=== PATIENT | male | born 1945 | race Caucasian/White ===

== ENCOUNTER 2024-04-19 09:52 | Outpatient (REF) | payer MEDICARE, SELFPAY ==
--- NOTE | ~2024-04-19 | XR_ITS ---
EXAMINATION: X-RAY LUMBAR SPINE CLINICAL INFORMATION: Chronic low back pain. COMPARISON: None available. TECHNIQUE: 5 views. Including flexion-extension views. FINDINGS: Five [id number] lumbar type vertebral bodies. There is 5 mm retrolisthesis of L1 on L2, which appears similar on the flexion-extension views. Vertebral body heights are maintained. No evidence of acute fracture. Multilevel disc degenerative changes. More prominent changes of moderate L3-L4, severe L4-L5 disc degeneration with disc height loss. Multilevel facet degeneration. Degenerative changes in the visualized lower thoracic spine. Nonobstructive bowel gas pattern. Chronic calcification/phleboliths in the pelvis. Atherosclerotic vascular calcification. XR/XR lumbar spine 4V min IMPRESSION: 1. Moderate-severe lumbar spondylosis. 2. No radiographic evidence of acute fracture. 3. Mild retrolisthesis of L1 on L2. Electronically signed by: Azael Gleason MD 04/19/2024 01:53 PM [facility] [place]
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
--- OUTSIDE RECORDS SUMMARY | 2024-04-25 17:24 | XMS_ITS | Encounter Summary ---
Author Name [facility] [facility] [place] [facility] [place] Address [address] [place] [address] Care Team Providers Care Mobility Scooter Repairer Name Role Phone FRANCI ROSSI Primary Care [...] Patient's Relationship to Policy Schmitt ELSI BCBS [facility] MEDICARE SUPPLEMEN ROBERT PSUED O MEDEX BRONZ E Feb 14, 2014 [id number] [phone] MICHAEL MERIDA PATIENT [place] MED[place]ARE SUPPLEMEN ROBERT MEDEX BRONZ E Mar 17, 2014 [id number] MICHAEL MERIDA RADHA PATIENT MEDICARE (WNR) MEDICARE (M) PART B Feb 14, 2014 PART B [id number] MICHAEL MERIDA PATIENT MEDICARE (WNR) MEDICARE (M) PART B Feb 14, 2014 PART B [id number] FUADMICHAEL RADHA PATIENT MEDICARE (WNR) MEDICARE (M) PART B Feb 14, 2014 PART B [id number] [phone] MICHAEL MERIDA PATIENT MEDICARE (WNR) MEDICARE (M) PART A Dec 16, 2011 PART A [id number] [phone] MICHAEL MERIDA PATIENT MEDICARE (WNR) MEDICARE (M) PART A Dec 16, 2011 PART A [id number] MICHAEL MERIDA PATIENT MEDICARE (WNR) MEDICARE (M) PART A Dec 16, 2011 PART A [id number] MICHAEL MERIDA PATIENT Selected Encounter This section includes the information on record at [place] for the Encounter. Date/Time Encounter Type Encounter Description Reason Pro vider Source Feb 07, 2024 10:16 AM Outpatient Encounter ADMIN PAT ACTIVTIES (MASNONCT) IHE Encounter Template Text not used by [place] Plan of Treatment: Future Appointments (+ 6 months) and Future Tests (+/- 45 days) The Plan of Treatment section includes future care activities for the patient from all [place] treatmentfacilities. This section includes future appointments and future orders which are active, pending or scheduled. Future Appointments This section includes appointments that were scheduled to occur 6 months from the date of the Encounter, up to a maximum of 20 appointments. The data comes from all [place] treatment facilities. Appointment Date/Time Appointment Type Appointme nt Facility Name Mar 16, 2024 09:30 AM AMBULATORY - [facility]IC[facility] [place] Active, Pending, and Scheduled Orders This section includes a listing of several types of active, pending, and scheduled orders, including clinic medications orders, diagnostic test orders, procedure orders and consult orders; where the start date of the order is 45 days before the date of the Encounter or 45 days after the date of theEncounter. The data comes from all [place] treatment facilities. Test Date/Time Test Type Test Details Facility Name Mar 08, 2024 12:00 AM Laboratory - Chemi stry Order BASIC METABOLIC PANEL (fasting) BLOOD (SST-SERUM) [facility] Mar 08, 2024 12:00 AM Laboratory - Chemi stry Order LIPID PANEL FASTING BLOOD (SST-SERUM) [facility] Mar 08, 2024 12:00 AM Laboratory - Chemi stry Order CBC AND DIFF (AUTO) BLOOD (LAV-BLOOD) [facility] Mar 08, 2024 12:00 AM Laboratory - Chemi stry Order LIVER FUNCTION BLOOD (SST-SERUM) [facility] Mar 08, 2024 12:00 AM Laboratory - Chemi stry Order HEMOGLOBIN A1C PANEL BLOOD (LAV-BLOOD) [facility] Mar 08, 2024 12:00 AM Laboratory - Chemi stry Order TSH BLOOD (SST-SERUM) [facility] Mar 08, 2024 12:00 AM Laboratory - Chemi stry Order STRONGLYLOIDES Ab IgG (q) BLOOD (SST-SERUM) [facility] Mar 08, 2024 12:00 AM Laboratory - Chemi stry Order VITAMIN B12 BLOOD (SST-SERUM) [facility] Mar 08, 2024 12:00 AM Laboratory - Chemi stry Order MICROALBUMIN CREATININE RATIO PANEL URINE (RANDOM) [facility] Mar 08, 2024 12:00 AM Laboratory - Chemi stry Order VITAMIN D (25-OH) BLOOD (SST-SERUM) [facility] Social History: Smoking Status (Most current) and Tobacco Use (All prior to encounter date) This section includes the most current, and the historical, smoking and tobacco- related health factors from the [place] facility where the Encounter took place. Current Smoking Status This section includes the most current smoking, or tobacco-related health factor, from the [place] facility where the Encounter took place. Date/Time Current Smoking Status Comment Facil ity Mar 16, 2023 09:21 AM VA-TOBACCO [place] USED [place] [facility] [place] [facility] Tobacco Use History This section includes a history of the smoking, or tobacco-related health factors, that were collected on or before the date of the Encounter. The data comes from the [place] facility where the Encounter took place. Date/Time Smoking Status/Tobacco Use Comment F acility Mar 05, 2022 09:57 AM VA-TOBACCO NEVER USED [facility] [place] [facility] Oct 18, 2019 09:55 AM VA-TOBACCO NEVER USED [facility] [place] [facility] Encounter Notes: All associated encounter notes This section contains the clinical notes associated to the Encounter. Date/Time Encounter Note(s) Provider Source Feb 07, 2024 10:16 AM PHARMACY NOTE: LOCAL TITLE: V1 PHARMACY CUSTOMER CARE MEDICATION RENEWAL STANDARD TITLE: PHARMACY NOTE DATE OF NOTE: FEB 07, 2024@10:16 ENTRY DATE: FEB 07, 2024@10:16:50 AUTHOR: SHMUEL PATEL EXP COSIGNER: URGENCY: STATUS: COMPLETED Date: Jan Division: [facility] referred by Pharmacy Call Center for medication renewal: Non-controlled/maintena nce medication Medications requested: [id number] METOPROLOL SUCCINATE 50MG SA TAB Defer to primary care provider To be mailed . Please review and renew if appropriate. *This note was generated by [facility] [facility] Customer [facility]. If you have any questions or need assistance, do not contact this author. Please refer all questions to your local, on-site pharmacy departments. /kashif/ SHMUEL PATEL CPhT [place], [place]/Pharmacy Customer Care Signed: 02/07/2024 10:17 Receipt Acknowledged By: 02/07/2024 11:26 /es/ OMKAR MIR NP NURSE PRACTITIONER for FRANCI ROSSI 02/10/2024 08:49 /es/ SARAHI CHAPMAN,RN REGISTERED NURSE SHMUEL PATEL [place] [facility]
--- OUTSIDE RECORDS SUMMARY | 2024-04-25 17:24 | XMS_ITS ---
Author Name [facility] [place] [facility] [place] [facility] [place] Address [address] [place] [address] Care Team Providers Care Reception Centre Manager Name Role Phone FRANCI ROSSI Primary Care [...] Patient's Relationship to Policy Schmitt ELSI BCBS [facility] MEDICARE SUPPLEMEN ROBERT PSUED O MEDEX BRON E Feb 14, 2014 [id number] [phone] MICHAEL MERIDA PATIENT BCBS [place] MEDICARE SUPPLEMEN ROBERT MEDEX BRONZ E Mar 17, 2014 [id number] FUADMICHAEL RADHA PATIENT MEDICARE (WNR) MEDICARE (M) PART B Feb 14, 2014 PART B [id number] MICHAEL MERIDA PATIENT MEDICARE (WNR) MEDICARE (M) PART B Feb 14, 2014 PART B [id number] [phone] FUADMICHAEL RADHA PATIENT MEDICARE (WNR) MEDICARE (M) PART B Feb 14, 2014 PART B [id number] MICHAEL MERIDA PATIENT MEDICARE (WNR) MEDICARE (M) PART A Dec 16, 2011 PART A [id number] MICHAEL MERIDA PATIENT MEDICARE (WNR) MEDICARE (M) PART A Dec 16, 2011 PART A [id number] MICHAEL MERIDA PATIENT MEDICARE (WNR) MEDICARE (M) PART A Dec 16, 2011 PART A [id number] MICHAEL MERIDA PATIENT Selected Encounter This section includes the information on record [place] for the Encounter. Date/Time Encounter Type Encounter Description Reason Pro vider Source Jun 01, 2023 12:00 AM Outpatient Encounter EVENT (HISTORICAL) [facility] Encounter Template Text not used by [place] Social History: Smoking Status (Most current) and Tobacco Use (All prior to encounter date) This section includes the most current, and the historical, smoking and tobacco- related health factors from the [place] facility where the Encounter took place. Current Smoking Status This section includes the most current smoking, or tobacco-related health factor, from the [place] facility where the Encounter took place. Date/Time Current Smoking Status Comment Priscilla forbes Mar 16, 2023 09:21 AM [place]TOBACCO [place] [facility] [place] [facility] Tobacco Use History This section includes a history of the smoking, or tobacco-related health factors, that were collected on or before the date of the Encounter. The data comes from the [place] facility where the Encounter took place. Date/Time Smoking Status/Tobacco Use Comment Jhonny rizo Mar 05, 2022 09:57 AM [place]TOBACCO [place] [facility] [place] [facility] Oct 18, 2019 09:55 AM VA-TOBACCO [place] USED [place] [facility] [place] [facility] Encounter Notes: All associated encounter notes This section contains the clinical notes associated to the Encounter. Date/Time Encounter Note(s) Provider Source Jun 01, 2023 12:00 AM NONVA NOTE: LOCAL TITLE: NON-VA OUTPATIENT NOTES STANDARD TITLE: NONVA NOTE DATE OF NOTE: JUN 01, 2023 ENTRY DATE: APR 10, 2024@14:21:03 AUTHOR: SHILPI DYE EXP COSIGNER: URGENCY: STATUS: COMPLETED VistA Imaging - Scanned Document SCANNED DOCUMENT SIGNATURE NOT REQUIRED Electronically Filed: 04/10/2024 by: SHILPI DYE FACTORY ENGINEER SHILPI DYE [facility]
--- OUTSIDE RECORDS SUMMARY | 2024-04-25 17:24 | XMS_ITS | Continuity of Care Document ---
Author Name [facility] Organization [facility] Care Team Providers Care Textile Technical Officer Name Role Phone [facility] Unavailable Unavailable Problems Combined list of problems from Department of Defense and Veterans Affairs facilities. It does not include entries that were removed or entered in error. Problem Status Onset Date Problem Type Date of Resolution Comments Source Screening for Malignant Neoplasms of colon Active 05/17/19 10 Condition Dec 06, 2009 Entered By: SONIA PEÑA Comment: Colonoscopy: Normal [facility] 1987: Fractured Nose & Mandible Repair Active Condition Dec 06, 2009 Entered By: SONIA PEÑA Comment: 1986:Large Metal [place] Crushed Nose: Concussion & LOC [facility] Blurred vision (ICD-9-CM 368.8) Active Condition [facility] EL Body mass index 25-29 - overweight Active Condition [facility] [place] [facility] CAD - Coronary Artery Disease (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) Active Condition Mar 20, 2023 Entered By: FRANCI ROSEN Comment: 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) [facility] Decreased vitamin D Active Condition Jan 29, 2020 Entered By: YANETH PARTIDA Comment: October 2019 [facility] [place] [facility] Erectile dysfunction Active Condition [facility] Exposure to Agent Gordon (SNOMED CT 865900913) Active Condition [facility] Exposure to potentially hazardous substance (SCT 140115880689185) Active Condition Mar 21 4 Entered By: STEVAN ALLEN Comment: Entered automatically through PATTI Problem List documentation program [facility] [place] [facility] Family history of coronary artery disease (SNOMED CT 073364391) Active Condition Dec 06, 2009 Entered By: SONIA PEÑA Comment: CAD [facility] History of polyp of colon Active Condition [facility] Hyperlipidemia Active Condition [facility] [place] [facility] PCP: Sheldon MANZO: [place] Active Condition [facility] Primary hypertension (SNOMED CT 75865127) Active Condition [facility] 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 Vitamin D Deficiency (SCT 10642985) Active Condition [facility] Diagnosis: ICD-10-CM I25.10 Athscl heart disease of [place] coronary artery w/o ang pctrs Active Diagnosis [facility] Medications Combined list of outpatient medications from Department of Defense and Veterans Affairs facilities.Medications provided include 1) outpatient medications from the last 15 months, and 2) patient-reported medications. Medication Details Route Status Patient Instructions Prescription Expires Prescription Number Last Dispense Date Ordering Provider Order Date Order Qty Source ASPIRIN 81MG TAB,EC TAKE ONE TABLET BY MOUTH ONCE DAILY ORAL ACTIVE FRANCI VARGAS [address] [facility] ATORVASTATI N CA 40MG TAB TAKE ONE TABLET BY MOUTH ONCE DAILY ORAL DISCONT INUED (EDIT) 03/18/2023 [id number] BRIA ROGERS [address] [facility] ATORVASTATI N CA 80MG TAB TAKE ONE TABLET BY MOUTH ONCE DAILY FOR HIGH CHOLESTE ROL ORAL ACTIVE 03/17/2025 [id number] FRANCI VARGAS M [address] [facility] ATORVASTATI N CA 80MG TAB TAKE ONE TABLET BY MOUTH ONCE DAILY FOR HIGH CHOLESTE ROL ORAL DISCONT INUED 02/11/2024 [id number] FRANCI VARGAS M [address] [facility] CHOLECALCIF MARCE 25MCG (1,000UNIT) TAB TAKE ONE TABLET BY MOUTH ONCE DAILY ORAL ACTIVE FRANCI VARGAS M [address] [facility] CLOPIDOGREL BISULFATE 75MG TAB TAKE ONE TABLET BY MOUTH ONCE DAILY ORAL 03/18/2023 [id number] BRIA ROGERS [address] [facility] LIDOCAINE 5% PATCH APPLY 1 PATCH TOPICALL Y ONCE DAILY FOR NERVE PAIN (LEAVE PATCH ON FOR 12 HOURS, THEN REMOVE PATCH) TOPICA L ACTIVE 03/17/2025 [id number] FRANCI VARGAS 2023 30 [place] METOPROLOL SUCCINATE 50MG TAB,SA TAKE ONE TABLET BY MOUTH ONCE DAILY FOR BLOOD PRESSURE /HEART ORAL ACTIVE 03/17/2025 [id number] 4 FRANCI VARGAS 2023 90 [place] METOPROLOL SUCCINATE 50MG TAB,SA TAKE ONE TABLET BY MOUTH ONCE DAILY FOR BLOOD PRESSURE /HEART ORAL DISCONT INUED 02/07/2025 [id number] RA ALVAREZ MIR 2023 90 [facility] METOPROLOL SUCCINATE 50MG TAB,SA TAKE ONE TABLET BY MOUTH ONCE DAILY FOR BLOOD PRESSURE /HEART ORAL DISCONT INUED 02/11/2024 [id number] FRANCI VARGAS 2022 90 [place] METOPROLOL TARTRATE 25MG TAB TAKE ONE TABLET BY MOUTH TWICE DAILY FOR BLOOD PRESSURE /HEART ORAL DISCONT INUED BY JUANA Amador 03/18/2023 [id number] BRIA ROGERS 2022 180 [place] SILDENAFIL CITRATE 100MG TAB TAKE ONE TABLET BY MOUTH ONCE DAILY NEEDED TAKE 1 HOUR PRIOR TO SEXUAL ACTIVITY ORAL SUSPEND ED 03/17/2025 [id number] 5 FRANCI VARGAS 2023 18 [place] SILDENAFIL CITRATE 100MG TAB TAKE ONE TABLET BY MOUTH ONCE DAILY NEEDED TAKE 1 HOUR PRIOR TO SEXUAL ACTIVITY ORAL DISCONT INUED 03/20/2024 [id number] 4 FRANCI VARGAS 2022 6 [place] SILDENAFIL CITRATE 100MG TAB TAKE ONE TABLET BY MOUTH ONCE DAILY NEEDED TAKE 1 HOUR PRIOR TO SEXUAL ACTIVITY ORAL DISCONT INUED 03/17/2023 [id number] FRANCI VARGAS [address] [facility] Immunizations Combined list of available immunizations from the Department of Defense and Veterans Affairs facilities. Immunization Series Date Given Administered By Site Reaction Lot Number CVX Code Drug Him Assistant Status Comments Source INFLUENZA, HIGH-DOSE, TRIVALENT, PF 2023 MARLA CUEVAS LEFT DELTO ID [id number] 135 complet ed [facility] COVID-19 (MODERNA), MRNA, LNP-S, PF, 50 MCG/0.5 ML (AGES 12+ YEARS) 1 2022 MARLA CUEVAS LEFT DELTO ID [id number] 312 complet ed [facility] INFLUENZA, UNSPECIFIED FORMULATION 2022 88 complet ed [facility] ZOSTER RECOMBINANT 2 2022 ISSAEVONNE LEFT DELTO ID [id number] 187 complet ed Lots [id number] expiratio n 04/09/23 [facility] ZOSTER RECOMBINANT 1 2021 187 complet ed [facility] INFLUENZA, UNSPECIFIED FORMULATION 2021 88 complet ed [facility] COVID-19 (PFIZER), MRNA, LNP-S, PF, 30 MCG/0.3 ML DOSE, RAHUL-SUCROSE (AGES 12+ YEARS) 4 2021 217 complet ed [facility] COVID-19 (PFIZER), MRNA, LNP-S, PF, 30 MCG/0.3 ML DOSE, RAHUL-SUCROSE (AGES 12+ YEARS) 3 2020 217 complet ed [facility] INFLUENZA VACCINE, QUADRIVALENT, ADJUVANTED [address] [facility] PNEUMOCOCCAL POLYSACCHARID E PPV23 [address] [facility] COVID-19 (PFIZER), MRNA, LNP-S, PF, 30 MCG/0.3 ML DOSE 2 2020 208 complet ed [facility] COVID-19 (PFIZER), MRNA, LNP-S, PF, 30 MCG/0.3 ML DOSE 1 2020 208 complet ed [facility] INFLUENZA, SEASONAL, INJECTABLE 2018 141 complet ed [facility] INFLUENZA, SEASONAL, INJECTABLE 2017 141 complet ed [facility] INFLUENZA, SEASONAL, INJECTABLE 2016 141 complet ed [facility] TDAP 2016 115 complet ed [facility] FLU,3 YRS (HISTORICAL) 2015 88 complet ed Site: Left Deltoid [facility] PNEUMOCOCCAL CONJUGATE PCV 13 2015 133 complet ed [place] FLU,3 YRS (HISTORICAL) 2014 88 complet ed Site: Left Deltoid [place] ZOSTER (HISTORICAL) 2013 121 complet ed [facility] FLU,3 YRS (HISTORICAL) 2013 88 complet ed at [facility] TD(ADULT) UNSPECIFIED FORMULATION 2013 139 complet ed at PCP (Dr. Chung) [facility] TD(ADULT) UNSPECIFIED FORMULATION 2013 139 complet ed [facility] FLU,3 YRS (HISTORICAL) 2009 88 complet ed work [facility] FLU,3 YRS (HISTORICAL) 2008 88 complet ed [facility] Vital Signs Combined list of inpatient and outpatient Vital Signs from Department of Defense and Veterans Affairs, ranging from 12 months to all on record, depending upon the facility. Vital Sign Value Date Comments Source SYSTOLIC BLOOD PRESSURE 175 03/16/2024 09:34:16 [facility] DIASTOLIC BLOOD PRESSURE 69 03/16/2024 09:34:16 [facility] PULSE OXIMETRY 96 03/16/2024 09:34:16 S HUBER WEIGHT 181.6 03/16/2024 09:34:16 [facility] BMI 28kg/m2 03/16/2024 09:34:16 [facility] TEMPERATURE 97.8 03/16/2024 09:34:16 LOREN[facility] [place] PULSE 68 03/16/2024 09:34:16 DWA[facility] BARCENAS Encounters Combined list of: 1) Encounters from Department of Veterans Affairs facilities going back up to thelast 18 months. 2) Encounters from the Department of Defense facilities going back up to 280 months. Location Location Details Encounter Type Encounter Number Reason For Visit Attending Provider ADM Date DC Date Status Disposition Source [facility] Outpatient Encounter [id number] 11/03 [facility] Outpatient Encounter [id number] 11/05 [facility] Outpatient Encounter [id number] 11/10 [facility] Outpatient Encounter [id number] 12/10 [facility] Out[facility] Encounter [id number] 12/18 [facility] Out[facility] Encounter [id number] 01/30 [facility] Outpatient Encounter [id number] 02/09 [facility] OFFICE O/P EST MOD 30-39 MIN [id number] Diagnos is: ICD-10- CM I25.10 Athscl heart disease of [place] coronar y artery w/o ang pctrs<b r/> RUSSEL VRAGAS 03/16 [facility] ADMN SARSCOV2 VACC 1 DOSE [id number] RUSSEL VARGAS 03/16 [facility] Outpatient Encounter [id number] 06/01 [facility] Outpatient Encounter [id number] 02/06 [facility] Out[facility] Encounter [id number] 1.03/08 [facility] [place] ADMIN [id number] 1. RUSSEL VARGAS 03/16 [facility] [place] Outpatient Encounter [id number]. [id number] Diagnos is: ICD-10- CM I25.10 Athscl heart disease of [place] coronar y artery w/o ang pctrs<b r/> RUSSEL VARGAS 03/16 [facility] Social History Combined list of available smoking, tobacco, and other social history from Department of Defense and Veterans Affairs facilities. Social History Type Response Date Comment [facility] e Tobacco smoking status HIIS VA-TO[facility]ACCO NEVER USED 03/16/2024 [facility] History of tobacco use VA-TOBACCO NEVER USED 03/16/2023 [facility] History of tobacco use VA-TOBACCO NEVER USED 03/05/2022 [facility] History of tobacco use VA-TOBACCO NEVER USED 02/21/2021 [facility] D History of tobacco use VA-TOBACCO NEVER USED 10/18/2019 [facility] History of tobacco use [facility] History of tobacco use LIFETIME NON-TOBACCO USER 09/24/2017 [facility] History of tobacco use LIFETIME NON-TOBACCO USER 08/07/2016 [facility] History of tobacco use LIFETIME NON-TOBACCO USER 06/05/2015 [facility] History of tobacco use LIFETIME NON-TOBACCO USER 12/06/2009 [facility]
--- OUTSIDE RECORDS SUMMARY | 2024-04-25 17:24 | XMS_ITS ---
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 Name Role Phone FRANCI ROSSI Primary Care [...] Patient's Relationship to Policy Schmitt ELSI BCBS [facility] MEDICARE SUPPLEMEN ROBERT PSUED O MEDEX BRON E Feb 14, 2014 [id number] MICHAEL MERIDA PATIENT [place] MED[place] SUPPLEMEN ROBERT MEDEX BRONZ E Mar 17, 2014 [id number] MICHAEL MERIDA RADHA PATIENT MEDICARE (WNR) MEDICARE (M) PART B Feb 14, 2014 PART B [id number] MICHAEL MERIDA PATIENT MEDICARE (WNR) MEDICARE (M) PART B Feb 14, 2014 PART B [id number] [phone] SALLYAPOLONIAMICHAEL RADHA PATIENT MEDICARE (WNR) MEDICARE (M) PART B Feb 14, 2014 PART B [id number] MICHAEL MERIDA PATIENT MEDICARE (WNR) MEDICARE (M) PART A Dec 16, 2011 PART A [id number] MICHAEL MERIDA PATIENT MEDICARE (WNR) MEDICARE (M) PART A Dec 16, 2011 PART A [id number] MICHAEL MERIDA PATIENT MEDICARE (WNR) MEDICARE (M) PART A Dec 16, 2011 PART A [id number] MICHAEL MERIDA PATIENT Selected Encounter This section includes the information on record at [place] for the Encounter. Date/Time Encounter Type Encounter Description Reason Provider Source Mar 16, 2024 09:30 AM IMMUNIZATION ADMIN PRIMARY CARE/MEDICINE ICD-10-CM Z23. Encounter for immunization FRANCI FLORES Fredy Encounter Template Text not used by [facility] Assessments - Encounter Diagnoses This section includes the primary and secondary diagnoses documented for the Encounter. Date/Time Primary/Secondary Diagnosis Diagnosis Name Provider Source Mar 16, 2024 09:30 AM SECONDARY [facility] Plan of Treatment: Future Appointments (+ 6 months) and Future Tests (+/- 45 days) The Plan of Treatment section includes future care activities for the patient from all [place] treatmentfacilities. This section includes future appointments and [...] of theEncounter. The data comes from all [place] treatment facilities. Test Date/Time Test Type Test Details Facility Name Mar 08, 2024 12:00 AM Laboratory - Chemi stry Order BASIC METABOLIC PANEL (fasting) BLOOD (SST-SERUM) [facility] Mar 08, 2024 12:00 AM Laboratory - Chemi stry Order LIVER FUNCTION BLOOD (SST-SERUM) [facility] Mar 08, 2024 12:00 AM Laboratory - Chemi stry Order LIPID PANEL FASTING BLOOD (SST-SERUM) [facility] Mar 08, 2024 12:00 AM Laboratory - Chemi stry Order CBC AND DIFF (AUTO) BLOOD (LAV-BLOOD) [facility] Mar 08, 2024 12:00 AM Laboratory - Chemi stry Order HEMOGLOBIN A1C PANEL BLOOD (LAV-BLOOD) [facility] Mar 08, 2024 12:00 AM Laboratory - Chemi stry Order TSH BLOOD (SST-SERUM) [facility] Mar 08, 2024 12:00 AM Laboratory - Chemi stry Order VITAMIN B12 BLOOD (SST-SERUM) [facility] Mar 08, 2024 12:00 AM Laboratory - Chemi stry Order STRONGLYLOIDES Ab IgG (q) BLOOD (SST-SERUM) [facility] Mar 08, 2024 12:00 AM Laboratory - Chemi stry Order MICROALBUMIN CREATININE RATIO PANEL URINE (RANDOM) [facility] Mar 08, 2024 12:00 AM Laboratory - Chemi stry Order VITAMIN D (25-OH) BLOOD (SST-SERUM) [facility] Immunizations: All administered on the encounter date This section contains immunizations associated to the Encounter. Immunization Series Date Issued Reaction Comments INFLUENZA, HIGH-DOSE, TRIVALENT, PF Mar 16 Social History: Smoking Status (Most current) and Tobacco Use (All prior to encounter date) This section includes the most current, and the historical, smoking and tobacco- related health factors from the [place] facility where the Encounter took place. Current Smoking Status This section includes the most current smoking, or tobacco-related health factor, from the [place] facility where the Encounter took place. Date/Time Current Smoking Status Comment Facil ity Mar 16, 2024 09:30 AM VA-TOBACCO NEVER USED [place] [facility] [place] [facility] Tobacco Use History This section includes a history of the smoking, or tobacco-related health factors, that were collected on or before the date of the Encounter. The data comes from the [place] facility where the Encounter took place. Date/Time Smoking Status/Tobacco Use Comment F acility Mar 16, 2023 09:21 AM VA-TOBACCO NEVER USED [place] [facility] [place] [facility] Mar 05, 2022 09:57 AM VA-TOBACCO NEVER USED [place] [facility] [place] [facility] Oct 18, 2019 09:55 AM VA-TOBACCO NEVER USED [facility] [place] [facility] Encounter Notes: All associated encounter notes This section contains the clinical notes associated to the Encounter. Date/Time Encounter Note(s) Provider Source Mar 16, 2024 09:50 AM PREVENTIVE MEDICIN E NURSING NOTE: LOCAL TITLE: CLINICAL REMINDERS/NURSING STANDARD TITLE: PREVENTIVE MEDICINE NURSING NOTE DATE OF NOTE: MAR 16, 2024@09:50 ENTRY DATE: MAR 16, 2024@09:50:04 AUTHOR: SCARLETT CUEVAS COSIGNER: URGENCY: STATUS: COMPLETED Suicide Screen: C-SSRS Screening [place] Suicide Severity Rating Scale (C-SSRS) screener 1. Over the past month, have you wished you were or wished you could go to sleep and not wake up? No 2. Over the past month, have you had any actual thoughts of killing yourself? No 3. Over the past month, have you been thinking about how you might do this? Response not required due to responses to other questions. 4. Over the past month, have you had these thoughts and had some intention of acting on them? Response not required due to responses to other questions. 5. Over the past month, have you started to work out or worked out the details of how to kill yourself? Response not required due to responses to other questions. 6. If yes, at any time in the past month did you intend to carry out this plan? Response not required due to responses to other questions. 7. In your lifetime, have you ever done anything, started to do anything, or prepared to do anything to end your life (for example, collected pills, obtained a gun, gave away valuables, went to the roof but didn't jump)? No 8. If YES, was this within the past 3 months? Response not required due to responses to other questions. Homelessness/Food Insecurity Screen: In the past 2 months, have you been living in stable housing that you own, rent, or stay in as part of a household? Yes - Living in stable housing. Are you worried or concerned that in the next 2 months you may NOT have stable housing that you own, rent, or stay in as part of a household? No - Not worried about housing near future The reports the following: Within the past 12 months, you worried whether your food would run out before you got money to buy more. Never true Within the past 12 months, the food you bought just didn't last and you didn't have money to get more. Never true Depression Screening: Perform PHQ-2 A PHQ-2 screen was performed. The score was 0 which is a negative screen for depression. Over the past two weeks, how often have you been bothered by the following problems? 1. Little interest or pleasure in doing things Not at all 2. Feeling down, depressed, or hopeless Not at all Tobacco Use Screening: The patient has never used tobacco. Alcohol Use Screen (AUDIT-C): Alcohol Screen: SCREEN FOR ALCOHOL (AUDIT-C) An alcohol screening test (AUDIT-C) was negative (score=4). 1. How often did you have a drink containing alcohol in the past year? Consider a drink to be a 12 ounce can or bottle of regular beer, 8 ounces of malt liquor, a 5 ounce glass of table wine, or a 1.5 ounce shot of liquor (like scotch, gin, or vodka). Four or more times a week 2. How many drinks containing alcohol did you have on a typical day when you were drinking in the past year? One or two drinks 3. How often did you have six or more drinks on one occasion in the past year? Never Sexual Orientation: The patient thinks of their sexual orientation as: Straight or Heterosexual RHS Screen: RHS Screen Environmental Check Upon inquiry, the individual reports that the environment is safe to proceed. Informed Consent to Screen and Document The individual consents to proceed with screening. The individual consents to documentation of responses. PRIMARY SCREEN: In the past 12 months, how often did a current or former intimate partner (e.g., boyfriend, girlfriend, , , sexual partner): 1. Scream or curse at you Never 2. Insult or talk down to you Never 3. Threaten you with harm Never 4. Physically hurt you Never 5. Force or pressure you to have sexual contact against your will, or when you were unable to say no Never ?? The HITS tool (items 1-4 above) is [place] copyright protected by Roderick Gil MD, and the user has full rights to use it throughout the [place] system. PRIMARY SCREEN RESULT: The Primary Screen is NEGATIVE. The individual answered never to all forms of IPV above (i.e., answered never to all 5 items) The individual accepts education and/or resources: No EDUCATION: The individual indicated readiness to learn. Education offered during this session as noted above. The individual indicated understanding by asking relevant questions and making appropriate comments. No barriers to learning were observed or identified. 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 The patient/caregiver denied any prior severe reaction to this vaccine or its components or a severe allergic reaction, such as anaphylaxis, to any vaccine or any injectable therapy. The patient/caregiver gave verbal consent to receive the vaccine. COVID VACCINE - WILL SCHEDULE WHEN READY. /kashif/ SCARLETT CUEVAS LPN LPN Signed: 03/16/2024 09:52 SCARLETT CUEVAS
--- OUTSIDE RECORDS SUMMARY | 2024-04-25 17:25 | XMS_ITS ---
Author Name [facility] [place] [facility] [place] Address [address] [place] [address] Care Team Providers Care Explosive Operator Grenade Name Role Phone FRANCI ROSSI Primary Care [...] Patient's Relationship to Policy Schmitt ELSI BCBS [facility] MEDICARE SUPPLEMEN ROBERT PSUED O MEDEX BRON E Feb 14, 2014 [id number] MICHAEL MERIDA PATIENT [place] MEDICARE SUPPLEMEN ROBERT MEDEX BRONZ E Mar 17, 2014 [id number] FUADMICHAEL RADHA PATIENT MEDICARE (WNR) MEDICARE (M) PART B Feb 14, 2014 PART B [id number] [phone] MICHAEL MERIDA PATIENT MEDICARE (WNR) MEDICARE (M) PART B Feb 14, 2014 PART B [id number] FUADMICHAEL RADHA PATIENT MEDICARE (WNR) MEDICARE (M) PART B Feb 14, 2014 PART B [id number] MICHAEL MERIDA PATIENT MEDICARE (WNR) MEDICARE (M) PART A Dec 16, 2011 PART A [id number] [phone] MICHAEL MERIDA PATIENT MEDICARE (WNR) MEDICARE (M) PART A Dec 16, 2011 PART A [id number] MICHAEL MERIDA PATIENT MEDICARE (WNR) MEDICARE (M) PART A Dec 16, 2011 PART A [id number] MICHAEL MERIDA PATIENT Selected Encounter This section includes the information on record at [place] for the Encounter. Date/Time Encounter Type Encounter Description Reason Pro vider Source Mar 08, 2024 12:00 AM Outpatient Encounter EVENT (HISTORICAL) [facility] Encounter Template Text not used by [place] Plan of Treatment: Future Appointments (+ 6 months) and Future Tests (+/- 45 days) The Plan of Treatment section includes future care activities for the patient from all [place] treatmentfacilities. This section includes future appointments and future orders which are active, pending or scheduled. Future Appointments This section includes appointments that were scheduled to occur 6 months from the date of the Encounter, up to a maximum of 20 appointments. The data comes from all [place] treatment facilities. Appointment Date/Time Appointment Type Appointme nt Facility Name Mar 16, 2024 09:30 AM AMBULATORY - MEDICINE [facility] Active, Pending, and Scheduled Orders This section includes a listing of several types of active, pending, and scheduled orders, including clinic medications orders, diagnostic test orders, procedure orders and consult orders; where the start date of the order is 45 days before the date of the Encounter or 45 days after the date of theEncounter. The data comes from all [place] treatment facilities. Test Date/Time Test Type Test Details Facility Name Mar 08, 2024 12:00 AM Laboratory - Chemi stry Order BASIC METABOLIC PANEL (fasting) BLOOD (SST-SERUM) [facility] Mar 08, 2024 12:00 AM Laboratory - Chemi stry Order LIPID PANEL FASTING BLOOD (SST-SERUM) [facility] Mar 08, 2024 12:00 AM Laboratory - Chemi stry Order LIVER FUNCTION BLOOD (SST-SERUM) [facility] Mar 08, 2024 12:00 AM Laboratory - Chemi stry Order CBC AND DIFF (AUTO) BLOOD (LAV-BLOOD) [facility] Mar 08, 2024 12:00 AM Laboratory - Chemi stry Order HEMOGLOBIN A1C PANEL BLOOD (LAV-BLOOD) [facility] Mar 08, 2024 12:00 AM Laboratory - Chemi stry Order TSH BLOOD (SST-SERUM) [facility] Mar 08, 2024 12:00 AM Laboratory - Chemi stry Order VITAMIN B12 BLOOD (SST-SERUM) [facility] Mar 08, 2024 12:00 AM Laboratory - Chemi stry Order STRONGLYLOIDES Ab IgG (q) BLOOD (SST-SERUM) [facility] Mar 08, 2024 12:00 AM Laboratory - Chemi stry Order VITAMIN D (25-OH) BLOOD (SST-SERUM) [facility] Mar 08, 2024 12:00 AM Laboratory - Chemi stry Order MICROALBUMIN CREATININE RATIO PANEL URINE (RANDOM) [facility] Social History: Smoking Status (Most current) and Tobacco Use (All prior to encounter date) This section includes the most current, and the historical, smoking and tobacco- related health factors from the [place] facility where the Encounter took place. Current Smoking Status This section includes the most current smoking, or tobacco-related health factor, from the [place] facility where the Encounter took place. Date/Time Current Smoking Status Comment Facil ity Mar 16, 2023 09:21 AM [facility] Tobacco Use History This section includes a history of the smoking, or tobacco-related health factors, that were collected on or before the date of the Encounter. The data comes from the [place] facility where the Encounter took place. Date/Time Smoking Status/Tobacco Use Comment F acility Mar 05, 2022 09:57 AM [place]-TOBACCO [place] USED [place] [facility] [place] [facility] Oct 18, 2019 09:55 AM VA-TOBACCO NEVER USED [place] [facility] [facility] Encounter Notes: All associated encounter notes This section contains the clinical notes associated to the Encounter. Date/Time Encounter Note(s) Provider Source Mar 08, 2024 12:00 AM RADIOLOGY NONVA NO TE: LOCAL TITLE: NON-VA RADIOLOGY STANDARD TITLE: RADIOLOGY NONVA NOTE DATE OF NOTE: MAR 08, 2024 ENTRY DATE: APR 11, 2024@15:38:35 AUTHOR: GOUGEON,BRIAN SABINA EXP COSIGNER: URGENCY: STATUS: COMPLETED VistA Imaging - Scanned Document SCANNED DOCUMENT SIGNATURE NOT REQUIRED Electronically Filed: 04/11/2024 by: BRIAN FERMIN [facility]
--- OUTSIDE RECORDS SUMMARY | 2024-04-25 17:25 | XMS_ITS ---
Author Organization [facility] Address [address] [place] [address] Care Team Providers Care Student Success Coach Name Role Phone Cierra Cassidy Unavailable [phone] ALLERGIES, ADVERSE REACTIONS, ALERTS Substance Code Code System Type Reaction Severity Status Start Date End Date No known drug allergies RxNorm Other substance allergy () 1 No known non-drug allergies RxNorm Other substance eduardo rgy () 1 No known allergies RxNorm Other substance allergy () 1 MEDICATIONS Medication Code Code System Start Date Stop Date Route Dosage Directions Fill Instructions sildenafil RxNorm 09/22/2022 prednisone 349324 RxNorm 4 oral 3 fluorouracil RxNorm 09/22/2022 amlodipine RxNorm 09/22/2022 clopidogrel bisulfate RxNorm 3 1 baclofen 19730115 RxNorm 4 oral 2 naproxen 19790520 RxNorm 4 oral 1 rosuvastatin RxNorm 09/22/2022 PROBLEMS Problem Name Code Code System Start Date End Date Stat us Hyperlipidemia 14077270 [facility] 09/22/2022 Activ e Chest pain, unspecified 158879614 [facility] 09/22/2022 Resolved Hypertension 52976248 [facility] 09/22/2022 Active Cardiac arrest, cause unspecified 498629568 [facility] 09/23/19 Active Left bundle-branch block, unspecified 24192620 [facility] Active Low back pain, unspecified 941248354 [facility] 02/11/2024 Active ENCOUNTERS Encounter Diagnosis Code Code System Date Stat us Low back pain, unspecified 280905821 [facility] 02/11/2024 Active IMMUNIZATIONS * None VITAL SIGNS Code Code System Vitals Name Date Value and Un its 8462-4 [facility] Blood Pressure-Diastolic 02/11/2024 82 mmHg 8480-6 [facility] Blood Pressure-Systolic 02/11/2024 1 34 mmHg 8867-4 [facility] Heart Rate 02/11/2024 79 /min 9279-1 [facility] Respiratory Rate 02/11/2024 16 /min 8310-5 [facility] Body Temperature 02/11/2024 97.7 F 07606-5 [facility] Oxygen Saturation 02/11/2024 97 % SOCIAL HISTORY * None PROCEDURES * None MEDICAL EQUIPMENT * Patient has no history of implantable devices ASSESSMENT * None TREATMENT PLAN Type Description Date MEDICATION Take 10 mg tablet 02/11/2024 MEDICATION Take 20 mg tablet 02/11/2024 MEDICATION Take 500 mg tablet 02/11/2024 ORDERS APPOINTMENT If not feeling ernst r in 1 week(s), please see your primary care physician. If you do not have a primary care physician, please return to this clinic. 02/11/2024 Lab Tests None GOALS * None HEALTH CONCERNS * No Health Concerns FUNCTIONAL AND COGNITIVE STATUS * None CONSULTATION NOTES * Gifty Stein - 02/11/2024 Referral: Physical TherapySelected Orders: Evaluate and Treat, Modalities Per Therapist Discretion,Home Exercise ProgramSchedule: CompletedNotes:* Comments: Lower back pain with left-sided radicular symptoms. 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 Ordered 02/11/2024 03:31 PM by Aislinn Biswas edited 02/14/2024 12:31 PM by Gifty Stein MA HARGE SUMMARY NOTES * None HISTORY AND PHYSICAL NOTES * Reason for visit - Injury IMAGING NOTES * /Eastern History: Back pain-left lower back: The patient presents with a chief complaint of back pain of theleft lower back since Feb 07, 2024. Context - Initial History: The patient reports it was not the result of an injury. The patient reports that the pain radiates to the left lower extremity.ExaminationMultiple views were obtained of the Lumbar spineComparisonsNone provided. FindingsBones: No evidence of acute fracture or dislocation. No suspicious lytic or sclerotic osseous lesion.Joints: Multilevel disc height loss, endplate degenerative marginal osteophytes. Multilevel facet hypertrophy.Soft tissues: Unremarkable visualized superficial soft tissues. IMPRESSION:1. No evidence of acute osseous or soft tissue abnormality.2. 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 LABORATORY REPORT NARRATIVE NOTES * None PATHOLOGY REPORT NARRATIVE NOTES * None PROGRESS NOTES * None
== END 2024-04-19 09:53 | disposition home or self-care (01) ==
LOC: HO.XRAY 09:52
PROVIDERS: Visit Provider Physical Medicine & Rehabilitation
DX: M54.50 Low back pain, unspecified (principal)
CPT/HCPCS: 72110

== ENCOUNTER 2024-04-24 09:14 | Outpatient (AMB) | payer MEDICARE, SELFPAY ==
--- NOTE | 2024-04-24 09:36 | A.SPINEOV_ITS ---
Vital Signs 04/24/24 09:37 Height 5 ft 8 in Weight 178 lb BMI 27.1 Intake Visit Reasons: Lower back pain Intake Note: Mr. Julien is here today c/o Left leg pain with burning sensation. 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 Within a day or 2 he had severe pain going down his leg but it seemed to go away briefly with some gentle rest and tincture of time. Sometime around mid January he was doing more yd work, and felt same pain start in his low back and then within a week or 2 the pain started again down his left leg in a similar distribution (L5). The patient had a visit with the [place] [facility] team, they ultimately underwent that transforaminal epidural, sounds like L4-5. He did get 24 hours of good relief from that. Unfortunately it all came back. He has been on gabapentin, [id number]-[id number] pain medications, anti-inflammatories, nervive cream and marijuana gummies at night. The pain is present all throughout the day, it is aggravated with activity but he also has a lot of difficulty sleeping at night. In fact a lot of the pain can be most intense in the evenings and at nighttime. He does not report any weakness of his foot, no cauda equina symptoms. PMH: History of coronary disease with a coronary bypass few years ago, he recovered well from that and has been stable since. History of hypertension, high cholesterol. Denies any problems with his lungs, strokes, kidneys, liver, cancer, bleeding disorders, major abdominal surgeries. Social hx: He does not smoke, he does have a couple of beers a day, and he takes marijuana gummies at night to sleep. Medications: Metoprolol, baby aspirin, gabapentin, atorvastatin and Nervive cream. Allergies: None Physical exam: He is able to stand on his own, he walks with an antalgic gait, he has a 4-5 left dorsiflexion weakness with some sensory changes along the top of his foot. Reflexes diminished at the patella and the Achilles. Imaging review: There is a lumbar MRI done in February [address] [facility] showing postsurgical changes what looks like L4-5 on the left. He has moderate stenosis at L2-3, there is severe degenerative disc disease at L4-5. I do not see any evidence of nerve compression at this level. There may be some subtle extraforaminal compression on the L4 and maybe a small disc herniation in the foramen at L5 down at the L5-S1 disc level. The radiologist does not report either of these findings but I can see them on the T1 sagittal imaging. X-rays done at [place] show no signs of instability with flexion or extension. Impression: 79-year-old male history of 2 previous back surgeries, L4-5 I believe, done at [facility] by Dr. Fernández, presents now with what sounds like a left L5 radiculitis, with some weakness of his foot with dorsiflexion. He did respond nicely for 24 hours to a cortisone injection at what we believe is the L5 nerve. I reviewed his MRI, I do not see any evidence of compression in the central canal. There is no obvious disc herniation in the central canal either that would explain symptoms. Do not think I can see us some subtle extraforaminal narrowing where there might be small disc herniation near the L5 nerve. It was not reported by the radiologist. Right now I do not have an obvious solution for the patient, I am going to review with Dr. Stockton to see if he has any other thoughts. I will get back to the patient once I have a chance to speak with him. Thank you for allowing us to care for your patient. The total time spent with this visit with this patient was 45 minutes reviewing history, physical exam, lumbar imaging review, and implementation of treatment plan or further diagnostic testing Jaydon Stockton MD,PhD [facility] Coding Level of Care Code New Pt Level 4 (98077) Diagnoses Lumbar radiculopathy M54.16
[2024-04-24 09:37] VITALS: BMI 27.1
--- OUTSIDE RECORDS SUMMARY | 2024-04-26 13:51 | XMS_ITS | Continuity of Care Document ---
Author Name [facility] Organization [facility] Care Team Providers Care Recordak Operator Name Role Phone [facility] Unavailable Unavailable Problems Combined list of problems from Department of Defense and Veterans Affairs facilities. It does not include entries that were removed or entered in error. Problem Status Onset Date Problem Type Date of Resolution Comments Source Screening for Malignant Neoplasms of colon Active 05/17/19 10 Condition Dec 06, 2009 Entered By: SONIA PEÑA Comment: Colonoscopy: Normal [facility] 1987: Fractured Nose & Mandible Repair Active Condition Dec 06, 2009 Entered By: SONIA PEÑA Comment: 1986:Large Metal [place] Crushed Nose: Concussion & LOC [facility] Blurred vision (ICD-9-CM 368.8) Active Condition [facility] Body mass index 25-29 - overweight Active Condition [place] [facility] [place] [facility] CAD - Coronary Artery Disease (SCT 87510925) Active Condition Mar 20, 2023 Entered By: FRANCI ROSEN Comment: 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) [facility] Decreased vitamin D Active Condition Jan 29, 2020 Entered By: YANETH PARTIDA Comment: October 2019 [place] [facility] [place] [facility] Erectile dysfunction Active Condition [facility] Exposure to Agent Long (SNOMED CT 962798934) Active Condition [facility] Exposure to potentially hazardous substance (SCT 499168329726802) Active Condition Mar 21 4 Entered By: STEVAN ALLEN Comment: Entered automatically through PATTI Problem List documentation program [facility] [place] [facility] Family history of coronary artery disease (SNOMED CT 887335250) Active Condition Dec 06, 2009 Entered By: SONIA PEÑA Comment: CAD [facility] History of polyp of colon Active Condition [facility] [place] [facility] Hyperlipidemia Active Condition [facility] [place] [facility] PCP: Sheldon MANZO: [place] Active Condition [facility] Primary hypertension (SNOMED CT 29497659) Active Condition [facility] 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 Medication Details Route Status Patient Instructions Prescription Expires Prescription Number Last Dispense Date Ordering Provider Order Date Order Qty Source ASPIRIN 81MG TAB,EC TAKE ONE TABLET BY MOUTH ONCE DAILY ORAL ACTIVE FRANCI VARGAS 2022 [facility] IELD ATORVASTATI N CA 40MG TAB TAKE ONE TABLET BY MOUTH ONCE DAILY ORAL DISCONT INUED (EDIT) 03/18/2023 [id number] BRIA ROGERS 2022 90 [facility] IELD ATORVASTATI N CA 80MG TAB TAKE ONE TABLET BY MOUTH ONCE DAILY FOR HIGH CHOLESTE ROL ORAL ACTIVE 03/17/2025 [id number] FRANCI VARGAS M 2023 90 [facility] IELD ATORVASTATI N CA 80MG TAB TAKE ONE TABLET BY MOUTH ONCE DAILY FOR HIGH CHOLESTE ROL ORAL DISCONT INUED 02/11/2024 [id number] 4 FRANCI VARGAS M 2022 90 [facility] IELD CHOLECALCIF MARCE 25MCG (1,000UNIT) TAB TAKE ONE TABLET BY MOUTH ONCE DAILY ORAL ACTIVE FRANCI VARGAS M 2020 [facility] IELD CLOPIDOGREL BISULFATE 75MG TAB TAKE ONE TABLET BY MOUTH ONCE DAILY ORAL 03/18/2023 [id number] BRIA ROGERS 2022 90 [facility] IELD LIDOCAINE 5% PATCH APPLY 1 PATCH TOPICALL Y ONCE DAILY FOR NERVE PAIN (LEAVE PATCH ON FOR 12 HOURS, THEN REMOVE PATCH) TOPICA L ACTIVE 03/17/2025 [id number] FRANCI VARGAS 2023 30 [place] METOPROLOL SUCCINATE 50MG TAB,SA TAKE ONE TABLET BY MOUTH ONCE DAILY FOR BLOOD PRESSURE /HEART ORAL ACTIVE 03/17/2025 [id number] 4 FRANCI VARGAS 2023 90 [place] METOPROLOL SUCCINATE 50MG TAB,SA TAKE ONE TABLET BY MOUTH ONCE DAILY FOR BLOOD PRESSURE /HEART ORAL DISCONT INUED 02/07/2025 [id number] 4 RA ALVAREZ MIR 2023 90 [facility] [place] METOPROLOL SUCCINATE 50MG TAB,SA TAKE ONE TABLET BY MOUTH ONCE DAILY FOR BLOOD PRESSURE /HEART ORAL DISCONT INUED 02/11/2024 [id number] FRANCI VARGAS 2022 90 [place] METOPROLOL TARTRATE 25MG TAB TAKE ONE TABLET BY MOUTH TWICE DAILY FOR BLOOD PRESSURE /HEART ORAL DISCONT INUED BY JUANA Amador 03/18/2023 [id number] 3 BRIA ROGERS 2022 180 [place] SILDENAFIL CITRATE 100MG TAB TAKE ONE TABLET BY MOUTH ONCE DAILY NEEDED TAKE 1 HOUR PRIOR TO SEXUAL ACTIVITY ORAL SUSPEND ED 03/17/2025 [id number] 5 FRANCI VARGAS 2023 18 [place] SILDENAFIL CITRATE 100MG TAB TAKE ONE TABLET BY MOUTH ONCE DAILY NEEDED TAKE 1 HOUR PRIOR TO SEXUAL ACTIVITY ORAL DISCONT INUED 03/20/2024 [id number] 4 FRANCI VARGAS 2022 6 [place] SILDENAFIL CITRATE 100MG TAB TAKE ONE TABLET BY MOUTH ONCE DAILY NEEDED TAKE 1 HOUR PRIOR TO SEXUAL ACTIVITY ORAL DISCONT INUED 03/17/2023 [id number] FRANCI VARGAS 2021 6 [facility] I[facility] Immunizations Combined list of available immunizations from the Department of Defense and Veterans Affairs facilities. Immunization Series Date Given Administered By Site Reaction Lot Number CVX Code Drug Power Electronics Engineer Status Comments Source INFLUENZA, HIGH-DOSE, TRIVALENT, PF 2023 MARLA CUEVAS LEFT DELTO ID [id number] 135 complet ed [facility] COVID-19 (MODERNA), MRNA, LNP-S, PF, 50 MCG/0.5 ML (AGES 12+ YEARS) 1 2022 MARLA CUEVAS LEFT DELTO ID [id number] 312 complet ed [facility] INFLUENZA, UNSPECIFIED FORMULATION 2022 88 complet ed [facility] ZOSTER RECOMBINANT 2 2022 ISSAEVONNE LEFT DELTO ID [id number] 187 complet ed Lots [id number] and [id number] expiratio n 04/09/23 [facility] IELD ZOSTER RECOMBINANT 1 2021 187 complet [...] VACCINE, QUADRIVALENT, ADJUVANTED 2020 205 complet ed [facility] IELD PNEUMOCOCCAL POLYSACCHARID E PPV23 2020 33 complet ed [facility] IELD COVID-19 (PFIZER), MRNA, LNP-S, PF, 30 MCG/0.3 ML DOSE 2 2020 208 complet ed [facility] COVID-19 (PFIZER), MRNA, LNP-S, PF, 30 MCG/0.3 ML DOSE 1 2020 208 complet ed [facility] INFLUENZA, SEASONAL, INJECTABLE 2018 141 complet ed [facility] INFLUENZA, SEASONAL, INJECTABLE 2017 141 complet ed [facility] [...] ZOSTER (HISTORICAL) 2013 121 complet ed at [facility] pharm [facility] FLU,3 YRS (HISTORICAL) 2013 88 complet ed at [facility] pharmacy [facility] [...] Source SYSTOLIC BLOOD PRESSURE 175 03/16/2024 09:34:16 [facility] DIASTOLIC BLOOD PRESSURE 69 03/16/2024 09:34:16 [facility] PULSE OXIMETRY 96 03/16/2024 09:34:16 S HUBER [...] [facility] [id number] 11/03 [facility] En[facility] [id number] 11/05 [facility] Encounter [id number] 11/10 [facility] Encounter [id number] 12/10 [facility] Encounter [id number] 12/18 [facility] Out[facility] Encounter [id number] 01/30 [facility] Encounter [id number] 02/09 [facility] [place] [facility] OFFICE O/P EST MOD 30-39 MIN [id number] Diagnos is: ICD-10- CM I25.10 Athscl heart disease of [place] coronar y artery w/o ang pctrs<b r/> RUSSEL VARGAS 03/16 [facility] ADMN SARSCOV2 VACC 1 DOSE [id number] RUSSEL VARGAS 03/16 [facility] Out[facility] Encounter [id number] 06/01 [facility] Encounter [id number] 02/06 [facility] Encounter [id number] 1.03/08 [facility] [place] ADMIN [id number] 1. RUSSEL VARGAS 03/16 [facility] [place] Outpatient Encounter [id number]. [id number] Diagnos is: ICD-10- CM I25.10 Athscl heart disease of [place] coronar y artery w/o ang pctrs<b r/> RUSSEL VARGAS 03/16 [facility] Social History Combined list of available smoking, tobacco, and other social history from Department of Defense and Veterans Affairs facilities. Social History Type Response Date Comment [facility] e Tobacco smoking status NMIS VA-TOBACCO NEVER USED 03/16/2024 [facility] [place] [facility] History of tobacco use VA-TOBACCO NEVER USED 03/16/2023 [facility] [place] [facility] History of tobacco use VA-TOBACCO NEVER USED 03/05/2022 [facility] [place] [facility] History of tobacco use VA-TOBACCO NEVER USED 02/21/2021 [facility] D History of tobacco use VA-TOBACCO NEVER USED 10/18/2019 [facility] [place] [facility] History of tobacco use [facility]-TOBACCO NEVER USED [facility]/24[facility] History of tobacco use LIFETIME NON-TOBACCO USER 09/24/2017 [facility] History of tobacco use LIFETIME NON-TOBACCO USER 08/07/2016 [facility] History of tobacco use LIFETIME NON-TOBACCO USER 06/05/2015 [facility] History of tobacco use LIFETIME NON-TOBACCO USER 12/06/2009 [facility]
== END 2024-04-24 10:35 | disposition home or self-care (01) ==
PROVIDERS: PCP Internal Medicine; Visit Provider Physician Assistant
DX: M54.16 Radiculopathy, lumbar region (principal)
CPT/HCPCS: 99204

== ENCOUNTER → 2024-04-24 09:14 | Outpatient (BNVA) | payer MEDICARE, SELFPAY | PROVIDERS: PCP Internal Medicine; Visit Provider Physician Assistant | DX: M54.16 Radiculopathy, lumbar region (principal) | CPT/HCPCS: 99202 ==

== ENCOUNTER → 2024-05-03 13:11 | Outpatient (BNV) | payer MEDICARE, SELFPAY | PROVIDERS: Visit Provider Internal Medicine | DX: I45.10 Unspecified right bundle-branch block (principal); R94.31 Abnormal electrocardiogram [ECG] [EKG] | CPT/HCPCS: 93010 ==

== ENCOUNTER 2024-06-01 07:39 | Day surgery (SDC) | payer MEDICARE, SELFPAY ==
--- OUTSIDE RECORDS SUMMARY | 2024-04-28 11:17 | XMS_ITS | Encounter Summary ---
Author Name [facility] [place] [facility] [place] [facility] [place] Address [address] [place] [address] Care Team Providers Care Corporate Securities Research Analyst Name Role Phone FRANCI ROSSI Primary Care [...] Relationship to Policy Schmitt ELSI BCBS [facility] MEDICARE SUPPLEMEN ROBERT PSUED O MEDEX BRONZ E Feb 14, 2014 [id number] MICHAEL MERIDA PATIENT BCBS [place] MEDICARE SUPPLEMEN ROBERT MEDEX BRONZ E Mar 17, 2014 [id number] MICHAEL MERIDA RADHA PATIENT MEDICARE (WNR) MEDICARE (M) PART B Feb 14, 2014 PART B [id number] MICHAEL MERIDA PATIENT MEDICARE (WNR) MEDICARE (M) PART B Feb 14, 2014 PART B [id number] FUADMICHAEL RADHA PATIENT MEDICARE (WNR) MEDICARE (M) PART B Feb 14, 2014 PART B [id number] [phone] MICHAEL MERIDA PATIENT MEDICARE (WNR) MEDICARE (M) PART A Dec 16, 2011 PART A [id number] MICHAEL MERIDA PATIENT MEDICARE (WNR) MEDICARE (M) PART A Dec 16, 2011 PART A [id number] MICHAEL MERIDA PATIENT MEDICARE (WNR) MEDICARE (M) PART A Dec 16, 2011 PART A [id number] MICHAEL MERIDA PATIENT Selected Encounter This section includes the information on record at [place] for the Encounter. Date/Time Encounter Type Encounter Description Reason Pro vider Source Feb 07, 2024 10:16 AM Outpatient Encounter ADMIN PAT ACTIVTIES (MASNONCT) IHE Encounter Template Text not used by [place] Plan of Treatment: Future Appointments (+ 6 months) and Future Tests (+/- 45 days) The Plan of Treatment section includes future care activities for the patient from all [place] treatmentfacilities. This section includes future appointments and future orders which are active, pending or scheduled. Future Appointments This section includes appointments that were scheduled to occur 6 months from the date of the Encounter, up to a maximum of 20 appointments. The data comes from all [place] treatment facilities. Appointment Date/Time Appointment Type Appointme [...] of theEncounter. The data comes from all [place] treatment facilities. Test Date/Time Test Type Test Details Facility Name Mar 08, 2024 12:00 AM Laboratory - Chemi stry Order BASIC METABOLIC PANEL (fasting) BLOOD (SST-SERUM) [facility] Mar 08, 2024 12:00 AM Laboratory - Chemi stry Order LIPID PANEL FASTING BLOOD (SST-SERUM) [facility] Mar 08, 2024 12:00 AM Laboratory - Chemi stry Order LIVER FUNCTION BLOOD (SST-SERUM) [facility] Mar 08, 2024 12:00 AM Laboratory - Chemi stry Order CBC AND DIFF (AUTO) BLOOD (LAV-BLOOD) [facility] Mar 08, 2024 12:00 AM Laboratory - Chemi stry Order HEMOGLOBIN A1C PANEL BLOOD (LAV-BLOOD) [facility] Mar 08, 2024 12:00 AM Laboratory - Chemi stry Order VITAMIN B12 BLOOD (SST-SERUM) [facility] Mar 08, 2024 12:00 AM Laboratory - Chemi stry Order STRONGLYLOIDES Ab IgG (q) BLOOD (SST-SERUM) [facility] Mar 08, 2024 12:00 AM Laboratory - Chemi stry Order TSH BLOOD (SST-SERUM) [facility] Mar 08, 2024 12:00 AM Laboratory - Chemi stry Order MICROALBUMIN CREATININE RATIO PANEL URINE (RANDOM) [facility] Mar 08, 2024 12:00 AM Laboratory - Chemi stry Order VITAMIN D (25-[place]) BLOOD (SST-SERUM) [facility] Social History: Smoking Status (Most current) and Tobacco Use (All prior to encounter date) This section includes the most current, and the historical, smoking and tobacco- related health factors from the [place] facility where the Encounter took place. Current Smoking Status This section includes the most current smoking, or tobacco-related health factor, from the [place] facility where the Encounter took place. Date/Time Current Smoking Status Comment Facil ity Mar 16, 2023 09:21 AM VA-TOBACCO NEVER USED [place] [facility] [place] [facility] Tobacco Use History This section includes a history of the smoking, or tobacco-related health factors, that were collected on or before the date of the Encounter. The data comes from the [place] facility where the Encounter took place. Date/Time Smoking Status/Tobacco Use Comment F acility Mar 05, 2022 09:57 AM VA-TOBACCO NEVER USED [facility] [place] [facility] Oct 18, 2019 09:55 AM VA-TOBACCO NEVER USED [facility] [place] [facility] Encounter Notes: All associated encounter [...] COSIGNER: URGENCY: STATUS: COMPLETED Date: Jan Division: [facility] referred by Pharmacy Call Center for medication renewal: Non-controlled/maintena nce medication Medications requested: [id number] METOPROLOL SUCCINATE 50MG SA TAB Defer to primary care provider To be mailed . Please review and renew if appropriate. *This note was generated by [facility] Pharmacy Customer Care. If you have any questions or need assistance, do not contact this author. Please refer all questions to your local, on-site pharmacy departments. /kashif/ SHMUEL PATEL [facility] [place], [place]/Pharmacy Customer Care Signed: 02/07/2024 10:17 Receipt Acknowledged By: 02/07/2024 11:26 /es/ OMKAR MIR NP NURSE PRACTITIONER for FRANIC ROSSI 02/10/2024 08:49 /es/ SARAHI CHAPMAN,RN REGISTERED NURSE [facility] [place] [facility]
--- OUTSIDE RECORDS SUMMARY | 2024-04-28 11:17 | XMS_ITS | Encounter Summary ---
Author Name [facility] [place] [facility] [place] [facility] [place] Address [address] [place] [address] Care Team Providers Care Straw Hat Plunger Operator Name Role Phone FRANCI ROSSI Primary Care [...] Patient's Relationship to Policy Schmitt ELSI BCBS [facility] MEDICARE SUPPLEMEN ROBERT PSUED O MEDEX BRON E Feb 14, 2014 [id number] [phone] MICHAEL MERIDA PATIENT BCBS [place] MEDICARE SUPPLEMEN ROBERT MEDEX BRONZ E Mar 17, 2014 [id number] FUADMICHAEL RADHA PATIENT MEDICARE (WNR) MEDICARE (M) PART B Feb 14, 2014 PART B [id number] MICHAEL MERIDA PATIENT MEDICARE (WNR) MEDICARE (M) PART B Feb 14, 2014 PART B [id number] FUADMICHAEL RADHA PATIENT MEDICARE (WNR) MEDICARE (M) PART B Feb 14, 2014 PART B [id number] MICHAEL MERIDA PATIENT MEDICARE (WNR) MEDICARE (M) PART A Dec 16, 2011 PART A [id number] [phone] MICHAEL MERIDA PATIENT MEDICARE (WNR) MEDICARE (M) PART A Dec 16, 2011 PART A [id number] MICHAEL MERIDA PATIENT MEDICARE (WNR) MEDICARE (M) PART A Dec 16, 2011 PART A [id number] MICHAEL MERIDA PATIENT Selected Encounter This section includes the information on record at [place] for the Encounter. Date/Time Encounter Type Encounter Description Reason Pro vider Source Mar 08, 2024 12:00 AM Outpatient Encounter EVENT (HISTORICAL) I[facility] Encounter Template Text not used by [place] Plan of Treatment: Future Appointments (+ 6 months) and Future Tests (+/- 45 days) The Plan of Treatment section includes future care activities for the patient from all [place] treatmentfacilities. This section includes future appointments and future orders which are active, pending or scheduled. Future Appointments This section includes appointments that were scheduled to occur 6 months from the date of the Encounter, up to a maximum of 20 appointments. The data comes from all [place] treatment facilities. Appointment Date/Time Appointment Type Appointme nt Facility Name Mar 16, 2024 09:30 AM AMBULATORY - MEDICINE [facility] Active, Pending, and Scheduled Orders This section includes a listing of several types of active, pending, and scheduled orders, including clinic medications orders, diagnostic test orders, procedure orders and consult orders; where the start date of the order is 45 days before the date of the Encounter or 45 days after the date of theEncounter. The data comes from all [place] treatment [facility]. Test Date/Time Test Type Test Details Facility Name Mar 08, 2024 12:00 AM Laboratory - Chemi stry Order LIPID PANEL FASTING BLOOD (SST-SERUM) [facility] Mar 08, 2024 12:00 AM Laboratory - Chemi stry Order BASIC METABOLIC PANEL (fasting) BLOOD (SST-SERUM) [facility] Mar 08, 2024 12:00 AM Laboratory - Chemi stry Order LIVER FUNCTION BLOOD (SST-SERUM) [facility] Mar 08, 2024 12:00 AM Laboratory - Chemi stry Order CBC AND DIFF (AUTO) BLOOD (LAV-BLOOD) [facility] Mar 08, 2024 12:00 AM Laboratory - Chemi stry Order HEMOGLOBIN A1C PANEL BLOOD (LAV-BLOOD) [facility] Mar 08, 2024 12:00 AM Laboratory - Chemi stry Order TSH BLOOD (SST-SERUM) [facility] Mar 08, 2024 12:00 AM Laboratory - Chemi stry Order VITAMIN B12 BLOOD (SST-SERUM) [facility] Mar 08, 2024 12:00 AM Laboratory - Chemi stry Order STRONGLYLOIDES Ab IgG (q) BLOOD (SST-SERUM) [facility] Mar 08, 2024 12:00 AM Laboratory - Chemi stry Order MICROALBUMIN CREATININE RATIO PANEL URINE (RANDOM) [facility] Mar 08, 2024 12:00 AM Laboratory - Chemi stry Order VITAMIN D (25-[place]) BLOOD (SST-SERUM) [facility] Social History: Smoking Status (Most current) and Tobacco Use (All prior to encounter date) This section includes the most current, and the historical, smoking and tobacco- related health factors from the [place] facility where the Encounter took place. Current Smoking Status This section includes the most current smoking, or tobacco-related health factor, from the [place] facility where the Encounter took place. Date/Time Current Smoking Status Comment Facil ity Mar 16, 2023 09:21 AM [facility] Tobacco Use History This section includes a history of the smoking, or tobacco-related health factors, that were collected on or before the date of the Encounter. The data comes from the [place] facility where the Encounter took place. Date/Time Smoking Status/Tobacco Use Comment F acility Mar 05, 2022 09:57 AM VA-TOBACCO NEVER USED [place] [facility] [place] [facility] Oct 18, 2019 09:55 AM [facility] [place] [facility] [place] [facility] Encounter Notes: All associated [...] Filed: 04/11/2024 by: BRIAN FERMIN [facility]
--- OUTSIDE RECORDS SUMMARY | 2024-04-28 11:17 | XMS_ITS | Encounter Summary ---
Author Name [facility] [place] [facility] [place] Address [address] [place] [address] Care Team Providers Care Communications Manager Name Role Phone FRANCI ROSSI Primary [...] Patient's Relationship to Policy Schmitt ELSI BCBS [facility] MEDICARE SUPPLEMEN ROBERT PSUED O MEDEX BRON E Feb 14, 2014 [id number] MICHAEL MERIDA PATIENT BCBS [place] MEDICARE SUPPLEMEN ROBERT MEDEX BRONZ E Mar 17, 2014 [id number] FUADMICHAEL RADHA PATIENT MEDICARE (WNR) MEDICARE (M) PART B Feb 14, 2014 PART B [id number] [phone] MICHAEL MERIDA PATIENT MEDICARE (WNR) MEDICARE (M) PART B Feb 14, 2014 PART B [id number] [phone] FUADMICHAEL RADHA PATIENT MEDICARE (WNR) MEDICARE (M) PART B Feb 14, 2014 PART B [id number] MICHAEL MERIDA PATIENT MEDICARE (WNR) MEDICARE (M) PART A Dec 16, 2011 PART A [id number] MICHAEL MERIDA PATIENT MEDICARE (WNR) MEDICARE (M) PART A Dec 16, 2011 PART A [id number] [phone] MICHAEL MERIDA PATIENT MEDICARE (WNR) MEDICARE (M) PART A Dec 16, 2011 PART A [id number] MICHAEL MERIDA PATIENT Selected Encounter This section includes the information on record at [place] for the Encounter. Date/Time Encounter Type Encounter Description Reason Pro vider Source Jun 01, 2023 12:00 AM Outpatient Encounter EVENT (HISTORICAL) [facility] Encounter Template Text not used by [facility] Social History: Smoking Status (Most current) and Tobacco Use (All prior to encounter date) This section includes the most current, and the historical, smoking and tobacco- related health factors from the [place] facility where the Encounter took place. Current Smoking Status This section includes the most current smoking, or tobacco-related health factor, from the [place] facility where the Encounter took place. Date/Time Current Smoking Status Comment Priscilla forbes Mar 16, 2023 09:21 AM [place]-TOBACCO NEVER USED [place] [facility] [place] [facility] Tobacco Use History This section includes a history of the smoking, or tobacco-related health factors, that were collected on or before the date of the Encounter. The data comes from the [place] facility where the Encounter took place. Date/Time Smoking Status/Tobacco Use Comment Jhonny rizo Mar 05, 2022 09:57 AM VA-TOBACCO NEVER US[place] [facility] [place] [facility] Oct 18, 2019 09:55 AM [place]TOBACCO [place] US[place] [facility] [place] [facility] Encounter Notes: All associated encounter notes [...] REQUIRED Electronically Filed: 04/10/2024 by: SHILPI DYE LITHOGRAPHIC PRINTING MACHINIST SHILPI DYE [facility]
--- OUTSIDE RECORDS SUMMARY | 2024-04-28 11:17 | XMS_ITS ---
Author Organization [facility], Address [address] [place] [address] Care Team Providers Care Tactical Intelligence Officer Name Role Phone Cierra Cassidy Unavailable [phone] ALLERGIES, ADVERSE REACTIONS, ALERTS Substance Code Code System Type Reaction Severity Status Start Date End Date No known non-drug allergies RxNorm Other substance eduardo rgy () 1 No known allergies RxNorm Other substance allergy () 1 No known drug allergies RxNorm Other substance allergy () 1 MEDICATIONS Medication Code Code System Start Date Stop Date Route Dosage Directions Fill Instructions sildenafil RxNorm 09/22/2022 prednisone 764971 RxNorm 4 oral 3 fluorouracil RxNorm 09/22/2022 amlodipine RxNorm 09/22/2022 clopidogrel bisulfate RxNorm 3 1 baclofen 19730115 RxNorm 4 oral 2 naproxen 19790520 RxNorm 4 oral 1 rosuvastatin RxNorm 09/22/2022 PROBLEMS Problem Name Code Code System Start Date End Date Stat us Hyperlipidemia 47576366 [facility] 09/22/2022 Activ e Chest pain, unspecified 371811819 [facility] 09/22/2022 Resolved Hypertension 69285864 [facility] 09/22/2022 Active Cardiac arrest, cause unspecified 687390518 [facility] 09/23/19 Active Left bundle-branch block, unspecified 52732317 [facility] Active Low back pain, unspecified 495295592 [facility] 02/11/2024 Active ENCOUNTERS Encounter Diagnosis Code Code System Date Stat us Low back pain, unspecified 624513062 [facility] 02/11/2024 Active IMMUNIZATIONS * None VITAL SIGNS Code Code System Vitals Name Date Value and Un its 8462-4 [facility] Blood Pressure-Diastolic 02/11/2024 82 mmHg 8480-6 [facility] Blood Pressure-Systolic 02/11/2024 1 34 mmHg 8867-4 [facility] Heart Rate 02/11/2024 79 /min 9279-1 [facility] Respiratory Rate 02/11/2024 16 /min 8310-5 [facility] Body Temperature 02/11/2024 97.7 F 14241-3 [facility] Oxygen Saturation 02/11/2024 97 % SOCIAL [...]
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
--- OUTSIDE RECORDS SUMMARY | 2024-04-28 11:17 | XMS_ITS | Encounter Summary ---
Author Name [facility] [facility] [place] Address [address] [place] [address] Care Team Providers Care Fiberglass Autobody Repairer Name Role Phone FRANCI ROSSI Primary [...] Patient's Relationship to Policy Schmitt ELSI BCBS [facility] MEDICARE SUPPLEMEN ROBERT PSUED O MEDEX BRON E Feb 14, 2014 [id number] MICHAEL MERIDA [place] SUPPLEMEN ROBERT MEDEX BRONZ E Mar 17, 2014 [id number] [phone] MICHAEL MERIDA RADHA PATIENT MEDICARE (WNR) MEDICARE (M) PART B Feb 14, 2014 PART B [id number] [phone] MICHAEL MERIDA PATIENT MEDICARE (WNR) MEDICARE (M) PART B Feb 14, 2014 PART B [id number] SALLYAPOLONIAMICHAEL RADHA PATIENT MEDICARE (WNR) MEDICARE (M) PART B Feb 14, 2014 PART B [id number] MICHAEL MERIDA PATIENT MEDICARE (WNR) MEDICARE (M) PART A Dec 16, 2011 PART A [id number] MICHAEL MERDIA PATIENT MEDICARE (WNR) MEDICARE (M) PART A Dec 16, 2011 PART A [id number] [phone] MICHAEL MERIDA PATIENT MEDICARE (WNR) MEDICARE (M) PART A Dec 16, 2011 PART A [id number] MICHAEL MERIDA PATIENT Selected Encounter This section includes the information on record at [place] for the Encounter. Date/Time Encounter Type Encounter [...] 2024 09:30 AM SECONDARY Encounter for immunization [facility] Plan of Treatment: Future Appointments (+ 6 months) and Future Tests (+/- 45 days) The Plan of Treatment section includes future care activities for the patient from all [place] treatmentfacilities. This section includes future appointments and [...] of theEncounter. The data comes from all [place] treatment facilities. Test Date/Time Test Type Test Details Facility Name Mar 08, 2024 12:00 AM Laboratory - Chemi stry Order BASIC METABOLIC PANEL (fasting) BLOOD (SST-SERUM) [facility] Mar 08, 2024 12:00 AM Laboratory - Chemi stry Order LIPID PANEL FASTING BLOOD (SST-SERUM) [facility] Mar 08, 2024 12:00 AM Laboratory - Chemi stry Order LIVER FUNCTION BLOOD (SST-SERUM) [facility] Mar 08, 2024 12:00 AM Laboratory - Chemi stry Order CBC AND DIFF (AUTO) BLOOD (LAV-BLOOD) [facility] Mar 08, 2024 12:00 AM Laboratory - Chemi stry Order HEMOGLOBIN A1C PANEL BLOOD (LAV-BLOOD) [facility] Mar 08, 2024 12:00 AM Laboratory - Chemi stry Order TSH BLOOD (SST-SERUM) [facility] Mar 08, 2024 12:00 AM Laboratory - Chemi stry Order VITAMIN B12 BLOOD (SST-SERUM) [facility] Mar 08, 2024 12:00 AM Laboratory - Chemi stry Order STRONGLYLOIDES Ab IgG (q) BLOOD (SST-SERUM) [facility] Mar 08, 2024 12:00 AM Laboratory - Chemi stry Order MICROALBUMIN CREATININE RATIO PANEL URINE (RANDOM) [facility] Mar 08, 2024 12:00 AM Laboratory - Chemi stry Order VITAMIN D (25-[place]) BLOOD (SST-SERUM) [facility] Immunizations: All administered on the encounter date This section contains immunizations associated to the Encounter. Immunization Series Date Issued Reaction Comments INFLUENZA, HIGH-DOSE, TRIVALENT, PF Mar 16 Social History: Smoking Status (Most current) and Tobacco Use (All prior to encounter date) This section includes the most current, and the historical, smoking and tobacco- related health factors from the [place] facility where the Encounter took place. Current Smoking Status This section includes the most current smoking, or tobacco-related health factor, from the [place] facility where the Encounter took place. Date/Time Current Smoking Status Comment Facil ity Mar 16, 2024 09:30 AM VA-TOBACCO NEVER USED [place] [facility] [place] [facility] Tobacco Use History This section includes a history of the smoking, or tobacco-related health factors, that were collected on or before the date of the Encounter. The data comes from the [place] facility where the Encounter took place. Date/Time Smoking Status/Tobacco Use Comment F acility Mar 16, 2023 09:21 AM VA-TOBACCO NEVER USED [facility] [place] [facility] Mar 05, 2022 09:57 AM VA-TOBACCO NEVER USED [facility] [place] [facility] Oct 18, 2019 09:55 AM VA-TOBACCO NEVER USED [facility] [place] [facility] Encounter Notes: All associated encounter [...] URGENCY: STATUS: COMPLETED Suicide Screen: C-SSRS Screening [place] Suicide Severity Rating Scale (C-SSRS) screener 1. [...] full rights to use it throughout the [place] system. PRIMARY SCREEN RESULT: The Primary Screen [...] PF Date Administered: Mar 16, 2024 09:51 Pond Worker: [email or web address] PASTEUR Lot: [id number] Exp Date: Nov 13, [address] [facility]: [phone] Admin Route/Site: INTRAMUSCULAR/LEFT DELTOID Dosage: 0.5mL Vaccine Information Statement(s): INFLUENZA(FLU) VACC(INACTIVATED OR RECOMBINANT)VIS Dec 20, 2020 ([place]) Order By: Policy Administered By: Scarlett Cuevas [...]
--- OUTSIDE RECORDS SUMMARY | 2024-04-28 11:18 | XMS_ITS ---
Author Organization [facility] Address [address] [place] [address] Care Team Providers Care Director Software Development Name Role Phone Cierra Cassidy Unavailable [phone] ALLERGIES, ADVERSE REACTIONS, ALERTS Substance Code Code System Type Reaction Severity Status Start Date End Date No known allergies RxNorm Other substance allergy () 1 No known non-drug allergies RxNorm Other substance eduardo rgy () 1 No known drug allergies RxNorm Other substance allergy () 1 MEDICATIONS Medication Code Code System Start Date Stop Date Route Dosage Directions Fill Instructions sildenafil RxNorm 09/22/2022 prednisone 521337 RxNorm 4 oral 3 fluorouracil RxNorm 09/22/2022 amlodipine RxNorm 09/22/2022 clopidogrel bisulfate RxNorm 3 1 baclofen 19730115 RxNorm 4 oral 2 naproxen 19790520 RxNorm 4 oral 1 rosuvastatin RxNorm 09/22/2022 PROBLEMS Problem Name Code Code System Start Date End Date Stat us Hyperlipidemia 35369724 [facility] 09/22/2022 Activ e Chest pain, unspecified 466439226 [facility] 09/22/2022 Resolved Hypertension 83969254 [facility] 09/22/2022 Active Cardiac arrest, cause unspecified 552712768 [facility] 09/23/19 Active Left bundle-branch block, unspecified 91812820 [facility] Active Low back pain, unspecified 295862494 [facility] 02/11/2024 Active ENCOUNTERS Encounter Diagnosis Code Code System Date Stat us Low back pain, unspecified 513133402 [facility] 02/11/2024 Active IMMUNIZATIONS * None VITAL SIGNS Code Code System Vitals Name Date Value and Un its 8462-4 [facility] Blood Pressure-Diastolic 02/11/2024 82 mmHg 8480-6 [facility] Blood Pressure-Systolic 02/11/2024 1 34 mmHg 8867-4 [facility] Heart Rate 02/11/2024 79 /min 9279-1 [facility] Respiratory Rate 02/11/2024 16 /min 8310-5 [facility] Body Temperature 02/11/2024 97.7 F 30865-6 [facility] Oxygen Saturation 02/11/2024 97 % SOCIAL [...]
--- NOTE | 2024-05-02 14:35 | P.CONAN_ITS ---
Documented by User: Erica Barnes NP 05/30/24 13:47 HPI - Anesthesia Eval Consult details Narrative: Left L5-S1 Hemilaminectomy with Microdiscectomy, Left L5 foraminotomy, 06/01/24 No recent ilness NO CP/SOB with active lifestyle Follows [facility] for CAD s/p CABG-3V 10/07/22 ([facility], left RA-OM1, SVG-OM2; Dr. Sammy Vega), HTN, HLD and LBBB Cardiac optimized, pending ECHO can be done after surgery Follows [facility] for Carotid Stenosis. R ICA stenosis 70% with a chronic dissection flap. No Left ICA stensosis. Seen by vascular during [facility] admit 04/2024 with ?TIA. No acute intervention at that time. Plan to f/u outpatient 08/[address] Harlan XAVIER Active Problems Active Problems: All Active Problems Lumbar radiculopathy (Acute) Past Medical History Medical History Basal cell carcinoma (BCC) Back pain Cardiac arrest Ischemic cardiomyopathy LBBB (left bundle branch block) CAD (coronary artery disease) Pre-diabetes Elevated cholesterol HTN (hypertension) Family History Family history of problems with anesthesia: No Surgical History Surgical History Hx of bilateral cataract extraction Hx of nasal septoplasty Hx of cardiac catheterization History of back surgery Hx of CABG H/O colonoscopy History of Problems with Anesthesia: No Social History Social History Are you a primary special needs child caregiver to a significant other at home: No Do you presently have visiting nurse or other home services: No Patient Tobacco Use Status: Never used Tobacco Use of substances other than those prescribed or required for medical reasons: No Have you been hit, kicked, punched, or otherwise hurt by someone within the past year? If so, by whom?: No Spiritual Healthcare Practices: none Faith Healthcare Practices: Jainism Cultural Healthcare Practices: none Are you DNR?: No Advance Directives Information Provided: Yes (as above noted) Advance Directives on File: No Recently lost weight without trying: No Eating poorly because of decreased appetite: No Nutrition Risks: No Nutritional Risk and Surgical patient >75years Poor oral hygiene: No (some extracted teeth) Meds Allergies Allergy/AdvReac Type Severity Reaction Status Date / Time No Known Allergies Allergy Verified 04/24/24 09:38 Home Medications ?Medication ?Instructions ?Recorded ?Confirmed ?Last Taken ?Type aspirin 81 mg tablet,delayed 81 mg PO QAM 05/02/24 05/03/24 05/31/24 History release atorvastatin 80 mg tablet 80 mg PO BEDTIME 05/02/24 05/03/24 Unknown History gabapentin 600 mg tablet 600 mg PO TID 05/02/24 05/03/24 Unknown History metoprolol succinate 50 mg 50 mg PO QAM 05/02/24 05/03/24 06/01/24 History tablet,extended release 24 hr amlodipine 5 mg-benazepril 10 mg 1 cap PO DAILY 06/01/24 06/01/24 Unknown History capsule Exam Pertinent Lab Results Pertinent Lab Results: Lab Results 05/03/24 Range/Units 13:28 WBC 12.1 H (4.8-10.8) X10*3/uL RBC 4.73 (4.60-5.80) X10*6/uL Hgb 14.9 (14.0-18.0) g/dl Hct 44.6 (42.0-52.0) % MCV 94.3 (80.0-98.0) fL MCH 31.5 (27.0-33.0) pg MCHC 33.4 (31.0-36.0) g/dl RDW 13.1 (11.0-16.0) % Plt Count 198 (160-400) X10*3/uL MPV 11.1 (9.4-12.4) fL Absolute Nucleated RBC 0.000 (0.0-0.012) X10*3/uL Nucleated RBC % (auto) 0.0 (0.0-0.2) /100WBC Sodium 139 (135-145) mmol/L Potassium 4.3 (3.3-5.1) mmol/L Chloride 104 (96-108) mmol/L Carbon Dioxide 27 (22-29) mmol/L Anion Gap 12 (12-20) BUN 15 (9-16) mg/dL Creatinine 0.83 (0.5-1.4) mg/dL Estim Creat Clear Calc 75.7 Estimated GFR > 60 Random Glucose 101 (60-115) mg/dL Calcium 9.4 (8.4-10.2) mg/dL Narrative Narrative: ECGECG 12-Lead ? 16:25:47 Ventricular Rate: 70 BPM Atrial Rate: 70 BPM P-R Interval: 194 ms QRS Duration: 154 ms Q-T Interval: 432 ms QTC Calculation(Bazett): 466 ms P Oz[place]: 43 degrees R [place]: -47 degrees T [place]: 76 degrees Normal sinus rhythm Left axis deviation Left bundle branch block Abnormal ECG When compared with ECG of 05-Oct-2022 13:57, QRS axis Shifted left QRS voltage has increased Nonspecific T wave abnormality no longer evident in Inferior leads T wave inversion less evident in Lateral leads Confirmed by SALMA MATSON MD ([id number]) on 05/14/2024 9:53:35 AM Spencer: SALMA MATSON MD ? Signed By: Salma Matson DO ? ECG 12-Lead ? 16:25:47 Please click on pdf link to open report ? Signed By: Salma Matson DO Stress Test NM Myocard Perf SPECT Multi ? 08:30:00 Summary 1. Myocardial perfusion imaging is abnormal showing a moderate intensity fixed perfusion defect with corresponding hypokinesis involving the inferior, inferoseptal, and apical gracia, suggestive of scarring. There is no reversible perfusion defect after Regadenoson infusion; however, there is transient ischemic dilatation with a ratio of 1.28. 2. LV function is preserved with an E.F. of 70% at rest and 73% after IV administration of Regadenoson. 3. EKG portion of the stress test is reported separately. Signatures _ _ ? Signed By: Christy MANZO, Devrim ECHO 09/2022 Left Ventricle/Interventricular Septum Moderately reduced LV systolic function (EF 40-45%). Global LV hypokinesis without obvious regional variation. Abnormal septal motion consistent with conduction abnormality. No visualized LV thrombus (with contrast ultrasound enhancement). Right Ventricle Normal RV systolic function. Normal RV size. CTA Head/Neck IMPRESSION: Severe stenosis at the origin of the right ICA associated with a short probably chronic focal dissection extending from the distal common carotid artery into the proximal ICA. Severe stenosis at the origin of the right external carotid artery. No other high-grade stenosis in the major arteries of the head or neck, and no large vessel occlusion Airway Mallampati Class: III TM Dist: >3cm Neck ROM: Full Loose/Missing/Broken Teeth: Yes (Extracted molars) Heart: RRR Lungs: CTAB Assessment and Plan Assessment Anesthesia Assessment: Anesthesia Plan Discussed and PAT Visit Final Anesthetic Review Family History of Problems with Anesthesia: No History of Problems with Anesthesia: No Documented by User: Asiya Wong MD 06/01/24 11:24 [facility] Past Medical History Medical History Basal cell carcinoma (BCC) Back pain Cardiac arrest Ischemic cardiomyopathy LBBB (left bundle branch block) CAD (coronary artery disease) Pre-diabetes Elevated cholesterol HTN (hypertension) Surgical History Surgical History Hx of bilateral cataract extraction Hx of nasal septoplasty Hx of cardiac catheterization History of back surgery Hx of CABG H/O colonoscopy Social History Social History Are you a primary special needs child caregiver to a significant other at home: No Do you presently have visiting nurse or other home services: No Patient Tobacco Use Status: Never used Tobacco Use of substances other than those prescribed or required for medical reasons: No Have you been hit, kicked, punched, or otherwise hurt by someone within the past year? If so, by whom?: No Spiritual Healthcare Practices: none Faith Healthcare Practices: Jainism Cultural Healthcare Practices: none Are you DNR?: No Advance Directives Information Provided: Yes (as above noted) Advance Directives on File: No Recently lost weight without trying: No Eating poorly because of decreased appetite: No Nutrition Risks: No Nutritional Risk and Surgical patient >75years Poor oral hygiene: No (some extracted teeth) Meds Allergies Allergy/AdvReac Type Severity Reaction Status Date / Time No Known Allergies Allergy Verified 04/24/24 09:38 Home Medications ?Medication ?Instructions ?Recorded ?Confirmed ?Last Taken ?Type aspirin 81 mg tablet,delayed 81 mg PO QAM 05/02/24 05/03/24 05/31/24 History release atorvastatin 80 mg tablet 80 mg PO BEDTIME 05/02/24 05/03/24 Unknown History gabapentin 600 mg tablet 600 mg PO TID 05/02/24 05/03/24 Unknown History metoprolol succinate 50 mg 50 mg PO QAM 05/02/24 05/03/24 06/01/24 History tablet,extended release 24 hr amlodipine 5 mg-benazepril 10 mg 1 cap PO DAILY 06/01/24 06/01/24 Unknown History capsule Assessment and Plan Final Anesthetic Review NPO: Yes ASA Class: III Final Preanesthetic Review: Meds/Allgs Chart Reviewed, Consent Obtained/Reviewed and Anes Risks/Benef Reviewed Patient Risk: Intermediate Procedure Risk: Intermediate Anesthetic Plan Anesthetic Plan: GA Disposition: Standard PACU
--- NOTE | 2024-05-03 | ECG_ITS ---
Test Reason : per op Blood Pressure : / mmHG Vent. Rate : 065 BPM Atrial Rate : 065 BPM P-R Int : 176 ms QRS Dur : 152 ms QT Int : 448 ms P-R-T Axes : 056 -31 071 degrees QTc Int : 465 ms Normal sinus rhythm Left axis deviation Left bundle branch block Abnormal ECG No previous ECGs available Referred By: Erica Barnes Electronically Signed By:KOBE ASHRAF
[2024-05-03 12:22] VITALS: BP 167/71; PULSE 64; RESP 18; O2SAT 97; BMI 27.1
[2024-05-03 14:20] LABS: Hematocrit 44.6 % (42.0-52.0); Hemoglobin 14.9 g/dl (14.0-18.0); Mean Corpuscular HGB Conc 33.4 g/dl (31.0-36.0); Mean Corpuscular Hemoglobin 31.5 pg (27.0-33.0); Mean Corpuscular Volume 94.3 fL (80.0-98.0); Mean Platelet Volume 11.1 fL (9.4-12.4); Platelet Count 198 X10*3/uL (160-400); Red Blood Count 4.73 X10*6/uL (4.60-5.80); Red Cell Distribution Width 13.1 % (11.0-16.0); White Blood Count 12.1 X10*3/uL (4.8-10.8)
[2024-05-03 14:43] LABS: Anion Gap 12 (12-20); Blood Urea Nitrogen 15 mg/dL (9-16); Calcium 9.4 mg/dL (8.4-10.2); Carbon Dioxide 27 mmol/L (22-29); Chloride 104 mmol/L (96-108); Creatinine Clr Calc Pharmacy 75.7; Estimated Glomerular Filt Rate > 60; Glucose Random 101 mg/dL (60-115); Potassium 4.3 mmol/L (3.3-5.1); Sodium 139 mmol/L (135-145)
[2024-06-01] VITALS (7 sets, daily range): BP systolic 127–158; BP diastolic 51–97; PULSE 51–67; RESP 12–16; TEMP 36.4–37.2; O2SAT 95–98
--- NOTE | ~2024-06-01 | FL_ITS ---
EXAMINATION: FLUORO GUIDANCE IN OR HISTORY: L5-S1 Hemilaminectomy Left, L5 left foraminotomy COMPARISON: Correlation is made to plain films of the lumbar spine dated 04/19/2024. TECHNIQUE: Fluoroscopy time: 3 seconds. Cumulative Dose: 2.07 mGy. DAP: 0.76 uGy-m2 (microgray-meter squared). Images: 1. FINDINGS: A single lateral view of the lumbar spine demonstrates a probe directed to the L5 vertebral body from a posterior approach. FL/FL guidance in OR IMPRESSION: Fluoroscopy during procedure. Please see procedure report for additional information. Electronically signed by: Ethan Hoffman MD 06/02/2024 01:13 PM [facility]IL[facility]
--- OUTSIDE RECORDS SUMMARY | 2024-06-01 07:42 | XMS_ITS | Continuity of Care Document ---
Author Organization [facility] Adult Address [address] [place] [address]- Care Team Providers Care Stereotype Molder Name Role Phone Ismael Dunlap MD Primary Care Physician [place] [facility] [place]24 [place] 05/30/24 [facility] [address] [place] [address]- Encounter Diagnosis Hypertension(Discharge Diagnosis) - 05/23/24 Angina pectoris(Discharge Diagnosis) - 05/23/24 Right arm numbness(Discharge Diagnosis) - 05/23/24 Attending Physician: Ismael Dunlap MD Encounter Type: Office Visit Allergies, Adverse Reactions, Alerts Substance Criticality Severity Reaction Reaction Severity Status erythromycin [D]Nausea and vomiting Active Immunizations Given and Recorded Vaccine Date Status Refusal Reason influenza virus vaccine, inactivated 03/16/24 Vickey rded influenza virus vaccine, inactivated 03/01/23 Vickey rded influenza virus vaccine, inactivated 02/18/22 Vickey rded influenza virus vaccine, inactivated 02/21/21 Vickey rded influenza virus vaccine, inactivated 02/29/20 Vickey rded influenza virus vaccine, inactivated 02/15/20 Vickey rded influenza virus vaccine, inactivated 01/27/19 Vickey rded influenza virus vaccine, inactivated 1 02/22/18 Gi ann-marie influenza virus vaccine, inactivated 01/29/17 Give n influenza virus vaccine, inactivated 02/20/14 Vickey rded influenza virus vaccine, inactivated 03/17/13 Give n influenza virus vaccine, inactivated 03/13/08 Give n [id number] 12y+ bivalent booster vax 02/18/22 Recorded SARS-CoV-2 mRNA (rppervt-pbyt-rzuks) vax 10/15/21 Recorded SARS-CoV-2 (COVID-19) mRNA BNT-162b2 vac 05/04/21 Recorded SARS-CoV-2 (COVID-19) mRNA BNT-162b2 vac 07/15/20 Recorded SARS-CoV-2 (COVID-19) mRNA BNT-162b2 vac 06/24/20 Recorded pneumococcal 23-valent vaccine 02/21/21 Recorded pneumococcal 23-valent vaccine 12/25/13 Given pneumococcal 13-valent vaccine 2 02/04/18 Given pneumococcal 13-valent vaccine 11/22/15 Recorded tetanus/diphtheria/pertussis, acel(Tdap) 12/25/13 Given FluLaval (oldterm) 03/22/12 Given Influenza Inactive (IM) (oldterm) 02/18/09 Given tetanus-diphtheria toxoids (Td) 03/09/04 Given 1Result Comment: [02/22/2018] [facility] 51895-977-54 2Result Comment: [02/04/2018] [facility] [id number] Medications amlodipine-benazepril 5 mg-10 mg oral capsule 1 capsule, By Mouth, Daily, # 30 capsule, 0 Refills, Maintenance, 05/23/24 1:17:00 PM EST, [facility]apsule, [id number], Partial fill upon patient request if the prescription is for a schedule II opioid drug., 1 capsule By Mouth Daily, 173, cm, 05/23/24 13:01:00 EST, Height, 77.5, kg, 05/13/24 16:37:00 EST, Dry Weight Start Date: 05/23/24 Status: Ordered Quantity: 30.0 Unit: capsule Repeat number: 1 Indication: Essential (primary) hypertension aspirin 81 mg oral delayed release tablet = 81 mg, By Mouth, Daily, # 30 tablet, 0 Refills, Maintenance, 10/07/22 12:44:00 PM EDT, EC Tablet, [facility], Partial fill upon patient request if the prescription is for a schedule IIopioid drug., 172.5, cm, 09/07/22 9:41:00 EDT, Height, 83, kg, 09/30/22 19:00:00 EDT, Dry Weight Start Date: 10/07/22 Status: Ordered Quantity: 30.0 Unit: tablet Repeat number: 1 atorvastatin 80 mg oral tablet 1 tablet = 80 mg, By Mouth, Daily, # 90 tablet, 3 Refills, Maintenance, 01/25/23 3:21:00 PM EDT, Tablet, Partial fill upon patient request if the prescription is for a schedule II opioid drug., 172.5,cm, 12/10/22 11:54:00 EDT, Height, 83, kg, 09/30/22 19:00:00 EDT, Dry Weight Start Date: 01/25/23 Status: Ordered Quantity: 90.0 Unit: tablet Repeat number: 4 gabapentin 600 mg oral tablet 1 tablet = 600 mg, By Mouth, 3 times a day, # 270 tablet, 0 Refills, Maintenance, 05/13/24 11:36:00PM EST, Tablet, Partial fill upon patient request if the prescription is for a schedule II opioid drug. Start Date: 05/13/24 Status: Ordered Quantity: 270.0 Unit: tablet Repeat number: 1 metoprolol 50 mg oral tablet, extended release 50 mg, 1, tablet, By Mouth, Daily, # 90 tablet, Refills 3, Tot. Refills 3, Maintenance, 01/25/23 3:21:00 PM EDT, Print Requisition, Partial fill upon patient request if the prescription is for a schedule II opioid drug., 172.5, cm, 12/10/22 11:54:00 EDT, Height, 83, kg, 09/30/22 19:00:00 EDT, Dry Weight Start Date: 01/25/23 Stop Date: 01/20/24 Status: Ordered Quantity: 90.0 Unit: tablet Repeat number: 4 Problem List Condition Confirmation Course Effective Dates Status H ealth Status Informant Angina pectoris 1 Confirmed 2021 Active Back pain, lumbosacral Confirmed Active Dysfunction of left eustachian tube Confirmed Active Hematuria - cause not known - negative workup Confirmed Active Hyperlipidemia Confirmed Active Hypertension Confirmed 1996 Active Medicare annual wellness visit, subsequent Confirmed Active Prediabetes Confirmed Active 1s/p CABG x 3 for ACS without [place] Diagnosis Diagnosis Type Effective Dates Health Status Clinical Service Informant Hypertension Discharge Diagnosis 05/23/24 Angina pectoris Discharge Diagnosis 05/23/24 Right arm numbness Discharge Diagnosis 05/23/24 Vital Signs Most recent to oldest [Reference Range]: 1 2 Height 173 cm (05/23/24 1:26 PM) 173 cm (05/23/24 1:01 PM) Weight 85.5 kg (05/23/24 1:01 PM) Oxygen Saturation [94-100 %] 97 % (05/23/24 1:01 PM) Pulse Rate [55-90 bpm] 62 bpm (05/23/24 1:01 PM) Body Mass Index [18.5-24.99 kg/m2] 28.57 kg/m2 *H* (05/23/24 1:01 PM) Blood Pressure [90-138/55-84 mm Hg] 134/ 75mm Hg 1 (05/23/24 1:26 PM) 176/65mm Hg *H* (05/23/24 1:01 PM) Mode of Delivery (Oxygen) Room air (05/23/24 1:01 PM) Blood pressure sites Arm, left (05/23/24 1:01 PM) 1Result Comment: average of home readings per patient Social History Social History Type Response Smoking Status Never smoker; Tobacc o user in household: No entered on: 12/18/15 Sex Sex Representation Male (finding) Note * Lois Rajani LEONARD: PERFORM Event Display: Patient Education/Instruction Authored Date: [id number] Ambulatory Adult Visit Summary [facility] [address] [place] [address] Name: AISLINN MERIDA : 1945?? Visit: 05/23/2024 12:45?? Ambulatory Visit Instructions ?? Your Care Team Primary Care Provider Ismael Dunlap MD? This Visit Provider Ismael Dunlap MD Your Diagnosis Hypertension Angina pectoris Right arm numbness Vitals Signs Pulse Rate: 62 bpm Height: 173 cm Systolic Blood Pressure: 134 mm Hg Weight: 85.5 kg Diastolic Blood Pressure: 75 mm Hg Body Mass Index:??28.57 kg/m2??High Oxygen Saturation: 97 % Body surface area: 2.03 What to do next Instructions From Your Provider Start amlodipine??benazepril 5/10 daily. ?? In one week, check lab. ?? Start checking BP in about 4 days and then let me know how it is running. Scheduled Follow-Up Appointments Wednesday 12:15 PM EST ?? With: David GARCIA, Sergio Keyes Where: [facility] [address] [place] [address]- Status: Pending Wednesday 9:30 AM EDT ?? Where: [facility] [address] [place] [address]- Status: Pending Future Orders Electrolytes (Lytes) - Routine, Once, 05/23/24 13:17:00 EST, Future Order, [facility], Blood?? BUN - Routine, Once, 05/23/24 13:17:00 EST, Future Order, [facility], Blood?? Medications The list below reflects the information in our records and provided by you today along with any changes made during this visit. Please continue your medications until treatment is completed or stopped by your provider. If this is different from the information you have or there are other questions,please contact the prescribing provider. What How Much When Why Instructions New Amlodipine-Benazepril (amlodipine- benazepril 5 mg-10 mg oral capsule) 1 capsule Oral Daily Hypertension Pickup at [facility] #43389 Unchanged Aspirin (aspirin 81 mg oral delayed release tablet) 81 Milligram Oral Daily Unchanged Atorvastatin (atorvastatin 80 mg oral tablet) 1 tab(s) Oral Daily Unchanged Gabapentin (gabapentin 600 mg oral tablet) 1 tab(s) Oral 3 times a day Unchanged Metoprolol (metoprolol 50 mg oral tablet, extended release) 1 tab(s) Oral Daily Duration: 90 Days Pharmacy Information [facility][id number]: [address], [place] [id number] [phone] ?? What How Much When Why Comments Stop Taking Acetaminophen (acetaminophen 325 mg oral tablet) 2 tab(s) Oral Every 6 hours Stop Taking Durable Medical Equipment (donning aids for compression stockings) See instructions Angina pectoris use to put on stockings ?? Stop Taking Emollients, Topical (Vashe Topical Solution) 475 Milliliter Topically Every 12 hours Test Performed Below is a partial list of the tests performed during your Visit. You may have had other tests and procedures not included in this list. Please discuss all test results with your provider. BUN?-- Results Pending -- Lytes?-- Results Pending -- Medications and Immunizations Administered Medications Given During Visit No medications given during this visit.?? Allergies (NKA means No Known Allergies) erythromycin??([D]Nausea and vomiting) Common Emergency Awareness Tips IS IT A STROKE? Act FAST and Check for these signs: FACE Does the face look uneven? ARM Does one arm drift down? SPEECH Does their speech sound strange? TIME Call at any sign of stroke ?? Heart Attack Signs Chest discomfort: Most heart attacks involve discomfort in the center of the chest and lasts more than a few minutes, or goes away and comes back. It can feel like uncomfortable pressure, squeezing, fullness or pain. Discomfort in upper body: Symptoms can include pain or discomfort in one or both arms, back, neck, jaw or stomach. Shortness of breath: With or without discomfort. Other signs: Breaking out in a cold sweat, nausea, or lightheaded. Remember, MINUTES DO MATTER. If you experience any of these heart attack warning signs, call to get immediate medical attention! ?? Smoking can increase your chances of developing chronic health problems and can cause harmful effects to other family members in your house. If you smoke, you are strongly encouraged to quit. Please call [facility] at [phone] or [phone] ([phone]) or log in to [email or web address] for referrals to smoking cessation programs. ?? The National Suicide Prevention Hotline is available 07/12 if you or someone you know needs to find a reason to keep living. By calling 2-183-420-[employer] (0726) you'll be connected to a skilled, trained counselor at a crisis center in your area. [facility] [employer] Portal You can view and manage your care through the patient portal or by using a health care linda of your choosing. [employer] is a website that allows you to securely view your medical information including your hospital discharge summary, office visit summaries, medications and follow-up visits. You can also request appointments, renew medications, and request access to your medical information using a health care linda of your choosing, or just ask a question. You can enroll at [email or web address] or register during your next office visit. [facility], in keeping with [facility] guidance, no longer requires face masks for staff, patientsor visitors in most situations. Similiar to time spent indoors at other locations, there is the chance that you were exposed to repiratory viruses during your time with us (such as flu or COVID-19). If you develop symptoms concerning for a viral respiratory infection, please seek testing (and treatment if indicated) from your medical provider or home test kit. ?? Disclaimer: The information provided is of a general nature and is intended to be used in conjunction with the recommendations and advice of your health care practitioner. Every effort has been made to ensure that the information provided is accurate and complete at the time it is provided to you however, as your needs change, or, as new information becomes available, different or additional instructions may be required. ?? If you have questions, please consult with your primary care provider or pharmacist, as appropriate. This information is not intended to serve as substitution for assessment and evaluation by a qualified health care provider. If you do not have a primary care provider, you may find a [facility] provider by calling [facility] at [phone]. Patient Care team information Care Team Personnel Name: Payal Mancera RN Position: [facility] RN Member Role: Primary Care Nurse Name: Gaby Villagomez RN Position: [facility] RN Member Role: Primary Care Nurse Name: Brittnee Young RN Position: [facility] RN Member Role: Primary Care Nurse Name: Alessandra Knapp RN Position: [facility] RN Member Role: Primary Care Nurse Name: Ismael Dunlap MD Position: [facility] Physician - Primary Care Member Role: PCP Address: [address] [place] [id number] Telecom: Name: Asha Atwood RN Position: S RN Member Role: Primary Care Nurse Name: Amy Ward RN Position: [facility] ED RN W/OE and Tasks Member Role: Primary Care Nurse Name: Perla Lawton RN Position: [facility] RN Member Role: Primary Care Nurse Name: Elena Don RN Position: S RN Member Role: Primary Care Nurse Name: Mary Melton RN Position: S RN Member Role: Primary Care Nurse Name: Katie Orozco RN Position: S RN Member Role: Primary Care Nurse Name: Narcisa Isaac RN Position: S RN Member Role: Primary Care Nurse Care Team Related Persons Name: STEVAN MERIDA Insurance Providers Guarantor name: AISLINN MERIDA [employer] Plan Information #: 1 Payer: MEDICARE PART B OUTPT Member Number: [id number] Policy Number: NA Group Number: NA Health Plan Information #: 2 Payer: MEDEX Member Number: [id number] Policy Number: NA Group Number: NA
--- OUTSIDE RECORDS SUMMARY | 2024-06-01 07:42 | XMS_ITS | Continuity of Care Document ---
Author Organization [facility] ter Address [address] [place] [id number]- Care Team Providers Care Applications Trainer Name Role Phone Ismael Dunlap MD Primary Care Physician Encounter [facility] [place] Date(s): 02/29/24 - 05/01/[address] [address]- Attending Physician: Sundeep Ac Admitting Physician: Sundeep Ac Referring Physician: Sundeep Ac Encounter Type: Pre-Outpt Allergies, Adverse Reactions, Alerts Substance Criticality Severity Reaction Reaction Severity Status erythromycin [D]Nausea and vomiting Active Immunizations Given and Recorded Vaccine Date Status Refusal Reason influenza virus vaccine, inactivated 02/18/22 Vickey rded [...] influenza virus vaccine, inactivated 03/13/08 Give n [id number] 12y+ bivalent booster vax 02/18/22 Recorded SARS-CoV-2 mRNA (rdxykys-hlol-zoprv) vax 10/15/21 Recorded SARS-CoV-2 (COVID-19) mRNA BNT-162b2 [...] toxoids (Td) 03/09/04 Given 1Result Comment: [02/22/2018] [facility] [place] [id number] 2Result Comment: [02/04/2018] [facility] [place] [id number] Medications acetaminophen 325 mg oral tablet 650 mg, 2, tablet, By Mouth, Every 6 hours, Refills 0, Maintenance, 10/07/22 12:45:00 PM EDT, Partial fill upon patient request if the prescription is for a schedule II opioid drug. Start Date: 10/07/22 Status: Ordered Repeat number: 1 aspirin 81 mg oral delayed release tablet = 81 mg, By Mouth, Daily, # 30 tablet, 0 Refills, Maintenance, 10/07/22 12:44:00 PM EDT, EC Tablet, [facility] 3, Partial fill upon patient request if [...] Quantity: 90.0 Unit: tablet Repeat number: 4 donning aids for compression stockings donning aids for compression stockings, See Instructions, # 1 Unknown, Refills 0, Tot. Refills 0, Maintenance, use to put on stockings, 10/09/22 11:38:00 AM EDT, Supply Start Date: 10/09/22 Status: Ordered Quantity: 1.0 Unit: Unknown Repeat number: 1 Indication: Angina pectoris, unspecified metoprolol 50 mg oral tablet, extended release [...] Quantity: 90.0 Unit: tablet Repeat number: 4 Vashe Topical Solution 475 mL, Topically, Every 12 hours, 0 Refills, Maintenance, Solution Start Date: 10/07/22 Status: Ordered Repeat number: 1 Problem List Condition Confirmation Course Effective Dates [...] 1s/p CABG x 3 for ACS without [place] Social History Social History Type Response Smoking Status Never smoker; Tobacc o user in household: No entered on: 12/18/15 Sex Sex Representation Male (finding) Patient Care team information Care Team Personnel Name: Payal Mancera RN Position: [facility] RN Member Role: Primary Care Nurse Name: Gaby Villagomez RN Position: S RN Member Role: Primary Care Nurse Name: Brittnee Young RN Position: S RN Member Role: Primary Care Nurse Name: Alessandra Knapp RN Position: S RN Member Role: Primary Care Nurse Name: Ismael Dunlap MD Position: [facility] Physician - Primary Care Member Role: PCP Address: [address] [place] [address]- Telecom: Name: Asha Atwood RN Position: S RN Member Role: Primary Care Nurse Name: Amy Ward RN Position: S ED RN W/OE and Tasks Member Role: Primary Care Nurse Name: Perla Lawton RN Position: S RN Member Role: Primary Care Nurse Name: Elena Don RN Position: S RN Member Role: Primary Care Nurse Name: Mary Melton RN Position: S RN Member Role: Primary Care Nurse Name: Narcisa Isaac RN Position: S RN Member Role: Primary Care Nurse Care Team Related Persons Name: STEVAN MERIDA Insurance Providers Guarantor name: AISLINN MERIDA Health Plan Information #: 1 Payer: MEDICARE PART B OUTPT Member Number: [id number] Policy Number: NA Group Number: NA Health Plan Information #: 2 Payer: MEDEX Member Number: [id number] Policy Number: NA Group Number: NA
--- OUTSIDE RECORDS SUMMARY | 2024-06-01 07:43 | XMS_ITS | Continuity of Care Document ---
Author Name [facility] Organization [facility] Care Team Providers Care Pit Supervisor Name Role Phone [facility] Unavailable Unavailable Problems Combined list of problems from Department of Defense and Veterans Affairs facilities. It does not include entries that were removed or entered in error. Problem Status Onset Date Problem Type Date of Resolution Comments Source Screening for Malignant Neoplasms of colon Active 05/17/19 10 Condition Dec 06, 2009 Entered By: SONIA PEÑA Comment: Colonoscopy: Normal [facility] 1987: Fractured Nose & Mandible Repair Active Condition Dec 06, 2009 Entered By: SONIA PEÑA Comment: 1986:Large Metal [place] Crushed Nose: Concussion & LOC [facility] Blurred vision (ICD-9-CM 368.8) Active Condition [facility] Body mass index 25-29 - overweight Active Condition [facility] [place] [facility] CAD - Coronary Artery Disease (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) Active Condition Mar 20, 2023 Entered By: FRANCI ROSEN Comment: 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) [facility] Decreased vitamin D Active Condition Jan 29, 2020 Entered By: YANETH PARTIDA Comment: October 2019 [facility] [place] [facility] Erectile dysfunction Active Condition [facility] Exposure to Agent [place] (SNOMED CT 588135799) Active Condition [facility] Exposure to potentially hazardous substance (SCT 568522978556208) Active Condition Mar 21 4 Entered By: STEVAN ALLEN Comment: Entered automatically through PATTI Problem List documentation program [facility] [place] [facility] Family history of coronary artery disease (SNOMED CT 300077705) Active Condition Dec 06, 2009 Entered By: SONIA PEÑA Comment: CAD [facility] History of polyp of colon Active Condition [facility] [place] [facility] Hyperlipidemia Active Condition [facility] [place] [facility] PCP: Sheldon MANZO: [place] Active Condition [facility] Primary hypertension (SNOMED CT 63050184) Active Condition [facility] Superficial basal cell carcinoma (SNOMED CT 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 Medication Details Route Status Patient Instructions Prescription Expires Prescription Number Last Dispense Date Ordering Provider Order Date Order Qty Source ASPIRIN 81MG TAB,EC TAKE ONE TABLET BY MOUTH ONCE DAILY ORAL ACTIVE FRANCI VARGAS 2022 [facility] IELD ATORVASTATI N CA 80MG TAB TAKE ONE TABLET BY MOUTH ONCE DAILY FOR HIGH CHOLESTE ROL ORAL ACTIVE 03/17/2025 [id number] FRANCI VARGAS M 2023 90 [facility] IELD ATORVASTATI N CA 80MG TAB TAKE ONE TABLET BY MOUTH ONCE DAILY FOR HIGH CHOLESTE ROL ORAL DISCONT INUED 02/11/2024 [id number] FRANCI VARGAS M 2022 90 [facility] IELD CHOLECALCIF MARCE 25MCG (1,000UNIT) TAB TAKE ONE TABLET BY MOUTH ONCE DAILY ORAL ACTIVE FRANCI VARGAS 2020 [facility] IELD LIDOCAINE 5% PATCH APPLY 1 PATCH TOPICALL Y ONCE DAILY FOR NERVE PAIN (LEAVE PATCH ON FOR 12 HOURS, THEN REMOVE PATCH) TOPICA L ACTIVE 03/17/2025 [id number] FRANCI VARGAS M 2023 30 [place] METOPROLOL SUCCINATE 50MG TAB,SA TAKE ONE TABLET BY MOUTH ONCE DAILY FOR BLOOD PRESSURE /HEART ORAL ACTIVE 03/17/2025 [id number] 4 FRANCI VARGAS 2023 90 [facility] IELD METOPROLOL SUCCINATE 50MG TAB,SA TAKE ONE TABLET BY MOUTH ONCE DAILY FOR BLOOD PRESSURE /HEART ORAL DISCONT INUED 02/07/2025 [id number] 4 RA ALVAREZ MIR 2023 90 [facility] METOPROLOL SUCCINATE 50MG TAB,SA TAKE ONE TABLET BY MOUTH ONCE DAILY FOR BLOOD PRESSURE /HEART ORAL DISCONT INUED 02/11/2024 [id number] FRANCI VARGAS 2022 90 [facility] IELD SILDENAFIL CITRATE 100MG TAB TAKE ONE TABLET BY MOUTH ONCE DAILY NEEDED TAKE 1 HOUR PRIOR TO SEXUAL ACTIVITY ORAL ACTIVE 03/17/2025 [id number] 5 FRANCI VARGAS 2023 18 [facility] IELD SILDENAFIL CITRATE 100MG TAB TAKE ONE TABLET BY MOUTH ONCE DAILY NEEDED TAKE 1 HOUR PRIOR TO SEXUAL ACTIVITY ORAL DISCONT INUED 03/20/2024 [id number] 4 FRANCI VARGAS 2022 6 [facility] IELD SILDENAFIL CITRATE 100MG TAB TAKE ONE TABLET BY MOUTH ONCE DAILY NEEDED TAKE 1 HOUR PRIOR TO SEXUAL ACTIVITY ORAL DISCONT INUED 03/17/2023 [id number] 3 FRANCI VARGAS 2021 6 [facility] Immunizations Combined list of available immunizations from the Department of Defense and Veterans Affairs facilities. Immunization Series Date Given Administered By Site Reaction Lot Number CVX Code Drug Log Hauler Status Comments Source INFLUENZA, HIGH-DOSE, TRIVALENT, PF 2023 MARLA CUEVAS LEFT DELTO ID [id number] 135 complet ed [facility] COVID-19 (MODERNA), MRNA, LNP-S, PF, 50 MCG/0.5 ML (AGES 12+ YEARS) 1 2022 MARLA CUEVAS [place] LEFT DELTO ID [id number] 312 complet ed [facility] INFLUENZA, UNSPECIFIED FORMULATION 2022 88 complet ed [facility] ZOSTER RECOMBINANT 2 2022 EVONNE PARSONS LEFT DELTO ID [id number] 187 complet ed Lots [id number] expiratio n 04/09/23 [place] ZOSTER RECOMBINANT 1 2021 187 complet ed [facility] INFLUENZA, UNSPECIFIED FORMULATION 2021 88 complet ed [facility] COVID-19 (PFIZER), MRNA, LNP-S, BIVALENT, PF, 30 MCG/0.3 ML DOSE 1 2021 300 complet ed Lot#: [id number] Mfr: [employer] [facility] COVID-19 (PFIZER), MRNA, LNP-S, PF, 30 MCG/0.3 ML DOSE, RAHUL-SUCROSE (AGES 12+ YEARS) 4 2021 217 complet ed [facility] COVID-19 (PFIZER), MRNA, LNP-S, PF, 30 MCG/0.3 ML DOSE, RAHUL-SUCROSE (AGES 12+ YEARS) 3 2020 217 complet ed [facility] INFLUENZA VACCINE, QUADRIVALENT, ADJUVANTED 2020 205 complet ed [facility] PNEUMOCOCCAL POLYSACCHARID E PPV23 2020 33 complet ed [place] COVID-19 (PFIZER), MRNA, LNP-S, PF, 30 MCG/0.3 ML DOSE 2 2020 208 complet ed [facility] COVID-19 (PFIZER), MRNA, LNP-S, PF, 30 MCG/0.3 ML DOSE 1 2020 208 complet ed [facility] INFLUENZA, SEASONAL, INJECTABLE 2018 141 complet ed [facility] INFLUENZA, SEASONAL, INJECTABLE 2017 141 complet ed [facility] PNEUMOCOCCAL CONJUGATE PCV 13 2017 RIGHT DELTO ID 133 complet ed Lot#: [id number] Mfr: [employer] Expiratio n Date: 10/15/19 [facility] INFLUENZA, SEASONAL, INJECTABLE 2016 141 complet ed [facility] TDAP 2016 115 complet ed [facility] FLU,3 YRS (HISTORICAL) 2015 88 complet ed Site: Left Deltoid [facility] PNEUMOCOCCAL CONJUGATE PCV 13 2015 133 complet ed [place] FLU,3 YRS (HISTORICAL) 2014 88 complet ed Site: Left Deltoid [place] ZOSTER (HISTORICAL) 2013 121 complet ed at [facility] pharm [facility] FLU,3 YRS (HISTORICAL) 2013 88 complet ed at [facility] pharmacy [facility] PNEUMOCOCCAL POLYSACCHARID E PPV23 2013 RIGHT DELTO ID 33 complet ed Lot#: [id number] Mfr: [employer] Expiratio n Date: 08/05/14 [facility] TD(ADULT) [...] Source SYSTOLIC BLOOD PRESSURE 175 03/16/2024 09:34:16 [place] DIASTOLIC BLOOD PRESSURE 69 03/16/2024 09:34:16 [place] PULSE OXIMETRY 96 03/16/2024 09:34:16 [place] WEIGHT 181.6 03/16/2024 09:34:16 [place] BMI 28kg/m2 03/16/2024 09:34:16 [place] TEMPERATURE 97.8 03/16/2024 09:34:16 [place] PULSE 68 03/16/2024 09:34:16 [place] Encounters Combined list of: 1) Encounters from Department of Veterans Affairs facilities going back up to thelast 18 months. 2) Encounters from the Department of [facility] facilities going back up to 280 months. Location Location Details Encounter Type Encounter Number Reason For Visit Attending Provider ADM Date DC Date Status Disposition Source [facility] Outpatient Encounter [id number] 12/10 [facility] Outpatient Encounter [id number] 12/18 [facility] Outpatient Encounter [id number] 01/30 [facility] Outpatient Encounter [id number] 02/09 [facility] [place] OFFICE O/P EST MOD 30-39 MIN [id number] Diagnos is: ICD-10- CM I25.10 Athscl heart disease of [place] coronar y artery w/o ang pctrs<b r/> RUSSEL VARGAS 03/16 [place] [facility] ADMN SARSCOV2 VACC 1 DOSE [id number] RUSSEL VARGAS 03/16 [facility] Outpatient Encounter [id number] 06/01 [facility] En[facility] [id number] 02/06 [facility] En[facility] [id number] 03/08 [facility] [place] AD[place] [id number] 1. RUSSEL VARGAS M 03/16 [facility] [place] Outpatient Encounter [id number] 1BY. 87 Diagnos is: ICD-10- CM I25.10 Athscl heart disease of [place] coronar y artery w/o ang pctrs<b r/> RUSSEL VARGAS M 03/16 [facility] Social History Combined list of available smoking, tobacco, and other social history from Department of Defense and Veterans Affairs facilities. Social History Type Response Date Comment Sourc e Tobacco smoking status MIIS VA-TOBACCO NEVER USED 03/16/2024 [facility] History of tobacco use VA-TOBACCO NEVER USED 03/16/2023 [facility] History of tobacco use VA-TOBACCO NEVER USED 03/05/2022 [facility] History of tobacco use VA-TOBACCO NEVER USED 02/21/2021 [facility] History of tobacco use VA-TOBACCO NEVER USED 10/18/2019 [facility] History of tobacco use VA-TOBACCO NEVER USED 09/24/2017 [facility] D History of tobacco use LIFETIME NON-TOBACCO USER 09/24/2017 [facility] History of tobacco use LIFETIME NON-TOBACCO USER 08/07/2016 [facility] History of tobacco use LIFETIME NON-TOBACCO USER 06/05/2015 [facility] History of tobacco use LIFETIME NON-TOBACCO USER 12/06/2009 [facility]
--- OUTSIDE RECORDS SUMMARY | 2024-06-01 07:43 | XMS_ITS ---
Author Organization [facility] Address [address] [place] [address] Care Team Providers Care Office Clerk Routine Name Role Phone Cierra Cassidy [facility] [phone] ALLERGIES, ADVERSE REACTIONS, ALERTS Substance Code Code System Type Reaction Severity Status Start Date End Date No known drug allergies RxNorm Other substance allergy () 1 No known non-drug allergies RxNorm Other substance eduardo rgy () 1 No known allergies RxNorm Other substance allergy () 1 MEDICATIONS Medication Code Code System Start Date Stop Date Route Dosage Directions Fill Instructions atorvastatin 0 RxNorm oral gabapentin RxNorm 4 1 metoprolol succinate 0 RxNorm oral Adult Low Dose Aspirin 0 RxNorm oral PROBLEMS Problem Name Code Code System Start Date End Date Stat us Hyperlipidemia 15709833 [facility] 09/22/2022 Activ e Chest pain, unspecified 553535410 [facility] 09/22/2022 Resolved Hypertension 63635411 [facility] 09/22/2022 Active Cardiac arrest, cause unspecified 421099604 [facility] 09/23/19 23 Active Left bundle-branch block, unspecified 54676156 [facility] Active Paresthesia of skin 233772197 [facility] 05/13/2024 Active ENCOUNTERS Encounter Diagnosis Code Code System Date Stat us Low back pain, unspecified 216803357 [facility] 02/11/2024 Active IMMUNIZATIONS * None VITAL SIGNS Code Code System Vitals Name Date Value and Un its 8462-4 [place] Blood Pressure-Diastolic 02/11/2024 82 mmHg 8480-6 [place] Blood Pressure-Systolic 02/11/2024 1 34 mmHg 8867-4 [place] Heart Rate 02/11/2024 79 /min 9279-1 [place] Respiratory Rate 02/11/2024 16 /min 8310-5 [place] Body Temperature 02/11/2024 97.7 F 70414-5 [facility] Oxygen Saturation 02/11/2024 97 % SOCIAL [...]
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
--- OUTSIDE RECORDS SUMMARY | 2024-06-01 07:43 | XMS_ITS ---
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 Name Role Phone Gavin Mendoza Unavailable [phone] ALLERGIES, ADVERSE REACTIONS, ALERTS Substance Code Code [...] Start Date End Date Stat us Hyperlipidemia 02876541 [facility] 09/22/2022 Activ e Chest pain, unspecified 491268144 [facility] 09/22/2022 Resolved Hypertension 67745315 [facility] 09/22/2022 Active Cardiac arrest, cause unspecified 451152622 [facility] 09/23/19 23 Active Left bundle-branch block, unspecified 68364961 [facility] Active Paresthesia of skin 040924860 [facility] 05/13/2024 Active ENCOUNTERS Encounter Diagnosis Code Code System Date Stat us Paresthesia of skin 869737316 [facility] 05/13/2024 Activ e IMMUNIZATIONS * None VITAL SIGNS Code Code System Vitals Name Date Value and Un its 8462-4 [facility] Blood Pressure-Diastolic 05/13/2024 85 mmHg 8480-6 [facility] Blood Pressure-Systolic 05/13/2024 1 67 mmHg 8867-4 [facility] Heart Rate 05/13/2024 72 /min 9279-1 [facility] Respiratory Rate 05/13/2024 18 /min 8310-5 [facility] Body Temperature 05/13/2024 98.0 F 33300-4 [facility] Oxygen Saturation 05/13/2024 95 % SOCIAL HISTORY * None PROCEDURES * None MEDICAL EQUIPMENT * Patient has no history of implantable devices ASSESSMENT * None TREATMENT PLAN Type Description Date ORDERS Your symptoms are co ncerning for TIA or possible CVA/stroke. You require urgent emergent evaluation in the emergency department. 05/13/2024 APPOINTMENT If not feeling ernst r in 3 day(s), please see your primary care physician. If you do not have a primary care physician, please return to this clinic. 05/13/2024 Lab Tests None GOALS * None HEALTH CONCERNS * No Health Concerns FUNCTIONAL AND COGNITIVE STATUS * None CONSULTATION NOTES * Gifty Stein - 05/13/2024 ED TransferReferred To: [facility] ED[address] [place], [place] [address]N: F: Schedule: CompletedMode of transport is EMSStability Status is stableOrdered 05/13/2024 03:31 PM by True Gaines edited 05/25/2024 11:17 AM by Gifty Stein MA HARGE SUMMARY NOTES * None HISTORY AND PHYSICAL NOTES * Patient: AISLINN MERIDA, Sex: M (ID# [id number]) Date of : 1945 (79 years) Visit on 05/13/2024 (Log# [id number]) Historian: Self Triage Notes: This morning he had pain in his right arm all the way to his finger tips, also his arm felt like itfell asleep, also having 0high blood pressure today. History of Present Illness: 79-year-old male who reports onset of tzgc-zmy-qctycih in the right arm. Episode lasted 30 minutes this morning and resolved without intervention. Patient had no prior similar symptoms. Patient denies prior history of TIA or CVA. Patient had a cardiac arrest here in September 2022. Subsequently had bypass surgery and has subsequently been pain-free. Of note, the symptoms that he presented with in September 2022 here began with paresthesias in the left arm. Complaint: The patient presents with a chief complaint of pain of the right shoulder since SatMay 13, 2024. Review of Systems: The patient complains of the following recent symptoms: Constitutional: pain: See HPI The patient denies the following recent symptoms: Musculoskeletal: denies back pain Allergies: patient specifies no known allergies Medications: gabapentin: gabapentin 600 mg tablet; TAKE 1 TABLET TAKE 1 TABLET BY MOUTH THREE TIMES DAILY; TotalQty: 90 (ninety) Each; 0 refill(s); SOULEYMANE; atorvastatin: atorvastatin; (oral) days; 0 refill(s); metoprolol succinate: metoprolol succinate; (oral) days; 0 refill(s); Adult Low Dose Aspirin: Adult Low Dose Aspirin; (oral) days; 0 refill(s); Problem List: Hyperlipidemia (status Active) Hypertension (status Active) Cardiac arrest, cause unspecified (status Active) Left bundle-branch block, unspecified (status Active) Surgeries: Back Surgery: - (Not Sure of Date) Heart/Lung surgery: coronary bypass surgery, 3 vessel bypassed, multiple procedures, last procedureperformed September 2022. Social History: Tobacco Use: denies Alcohol: denies Street / Unprescribed Drugs: denies Family History: patient specifies no conditions Vitals: 03:07 PM (05/13/2024)Temperature: 98.0 ?F, Pulse: 72 BPM, BP: 167/85, Respirations: 18/min, O2 Saturation: 95%, O2 Delivery: RAFirst entered 05/13/2024 15:07 by Lisa Marshall Physical Exam: The following exam elements were documented to be normal: Cardiovascular: S1, S2 noted, normal rate, regular rhythm, and no murmurs, rubs, gallop, or extra heart sounds. General: well developed, well nourished, and in no apparent distress. Neurological (Right and Left): lower extremity sensation intact bilaterally Neurological (Right and Left): upper extremity sensation intact bilaterally Neurological (Right and Left): normal strength in upper extremities Neurological (Right and Left): normal strength in lower extremities Neurological: shoulder shrug intact and symmetric. Respiratory: lungs clear to auscultation bilaterally with good air movement, no stridor, crackles, rubs, or wheezing. Diagnoses: Paresthesia of skin (R20.2) Discharge Instructions: Paresthesia Transient Ischemic Attack Ischemic Stroke Plan: If not feeling better in 3 day(s), please see your primary care physician. If you do not have a primary care physician, please return to this clinic. Your symptoms are concerning for TIA or possible CVA/stroke. You require urgent emergent evaluationin the emergency department. Referrals: ED Transfer Referred To: [facility] ED [address] [place] [address] T: F: Schedule: To be scheduled STAT. Mode of transport is EMS Stability Status is stable Ordered 05/13/2024 03:31 PM by Gavin Mendoza PA-C Visit discharged at 05/13/2024 3:54:42 PM by Gavin Mendoza PA-C Signed electronically by Gavin Mendoza PA-C on 05/13/2024 3:54:42 PM IMAGING NOTES * None LABORATORY REPORT NARRATIVE NOTES * None PATHOLOGY REPORT NARRATIVE NOTES * None PROGRESS NOTES * None
--- OUTSIDE RECORDS SUMMARY | 2024-06-01 07:43 | XMS_ITS | Encounter Summary ---
Author Name [facility] [place] [facility] [place] Address [address] [place] [address] Care Team Providers Care Stakes Player Name Role Phone FRANCI ROSSI Primary Care [...] to Policy Schmitt ELSI BCBS [facility] MEDICARE SUPPLEMEN ROBERT PSUED O MEDEX BRON E Feb 14, 2014 [id number] [phone] MICHAEL MERIDA PATIENT [place] MEDICARE SUPPLEMEN ROBERT MEDEX BRONZ E Mar 17, 2014 [id number] [phone] SALLYAPOLONIAMICHAEL RADHA PATIENT MEDICARE (WNR) MEDICARE (M) PART B Feb 14, 2014 PART B [id number] MICHAEL MERIDA PATIENT MEDICARE (WNR) MEDICARE (M) PART B Feb 14, 2014 PART B [id number] FUADMICHAEL RADHA PATIENT MEDICARE (WNR) MEDICARE (M) PART B Feb 14, 2014 PART B [id number] [phone] MICHAEL MERIDA PATIENT MEDICARE (WNR) MEDICARE (M) PART A Dec 16, 2011 PART A [id number] [phone] MICHAEL MERIDA PATIENT MEDICARE (WNR) MEDICARE (M) PART A Dec 16, 2011 PART A [id number] MICHAEL MERIDA PATIENT MEDICARE (WNR) MEDICARE (M) PART A Dec 16, 2011 PART A [id number] MICHAEL MERIDA PATIENT Selected Encounter This section includes the information on record at [place] for the Encounter. Date/Time Encounter Type Encounter [...] 2024 09:30 AM SECONDARY Encounter for immunization [facility] Plan of Treatment: Future Appointments (+ 6 months) and Future Tests (+/- 45 days) The Plan of Treatment section includes future care activities for the patient from all [place] treatmentfacilities. This section includes future appointments and [...] of theEncounter. The data comes from all [place] treatment facilities. Test Date/Time Test Type Test Details Facility Name Mar 08, 2024 12:00 AM Laboratory - Chemi stry Order BASIC METABOLIC PANEL (fasting) BLOOD (SST-SERUM) [facility] Mar 08, 2024 12:00 AM Laboratory - Chemi stry Order LIPID PANEL FASTING BLOOD (SST-SERUM) [facility] Mar 08, 2024 12:00 AM Laboratory - Chemi stry Order CBC AND DIFF (AUTO) BLOOD (LAV-BLOOD) [facility] Mar 08, 2024 12:00 AM Laboratory - Chemi stry Order LIVER FUNCTION BLOOD (SST-SERUM) [facility] Mar 08, 2024 12:00 AM Laboratory - Chemi stry Order HEMOGLOBIN A1C PANEL BLOOD (LAV-BLOOD) [facility] Mar 08, 2024 12:00 AM Laboratory - Chemi stry Order TSH BLOOD (SST-SERUM) [facility] Mar 08, 2024 12:00 AM Laboratory - Chemi stry Order STRONGLYLOIDES Ab IgG (q) BLOOD (SST-SERUM) [facility] Mar 08, 2024 12:00 AM Laboratory - Chemi stry Order VITAMIN B12 BLOOD (SST-SERUM) [facility] Mar 08, 2024 12:00 AM Laboratory - Chemi stry Order MICROALBUMIN CREATININE RATIO PANEL URINE (RANDOM) [facility] Mar 08, 2024 12:00 AM Laboratory - Chemi stry Order VITAMIN D (25-OH) BLOOD (SST-SERUM) [facility] Immunizations: All administered on the encounter date This section contains immunizations associated to the Encounter. Immunization Series Date Issued Reaction Comments INFLUENZA, HIGH-DOSE, TRIVALENT, PF Mar 16 Social History: Smoking Status (Most current) and Tobacco Use (All prior to encounter date) This section includes the most current, and the historical, smoking and tobacco- related health factors from the [place] facility where the Encounter took place. Current Smoking Status This section includes the most current smoking, or tobacco-related health factor, from the [place] facility where the Encounter took place. Date/Time Current Smoking Status Comment Facil ity Mar 16, 2024 09:30 AM VA-TOBACCO NEVER USED [place] [facility] [place] [facility] Tobacco Use History This section includes a history of the smoking, or tobacco-related health factors, that were collected on or before the date of the Encounter. The data comes from the [place] facility where the Encounter took place. Date/Time Smoking Status/Tobacco Use Comment F acility Mar 16, 2023 09:21 AM VA-TOBACCO NEVER USED [facility] [place] [facility] Mar 05, 2022 09:57 AM VA-TOBACCO NEVER USED [facility] [place] [facility] Oct 18, 2019 09:55 AM VA-TOBACCO NEVER USED [facility] [place] [facility] Encounter Notes: All associated encounter notes This section contains the clinical notes associated to the Encounter. Date/Time Encounter Note(s) Provider Source Mar 16, 2024 09:50 AM PREVENTIVE MEDICIN E NURSING NOTE: LOCAL TITLE: CLINICAL REMINDERS/NURSING STANDARD TITLE: PREVENTIVE MEDICINE NURSING NOTE DATE OF NOTE: MAR 16, 2024@09:50 ENTRY DATE: MAR 16, 2024@09:50:04 AUTHOR: SCARLETT CUEVAS COSIGNER: URGENCY: STATUS: COMPLETED CLINICAL REMINDERS/NURSING Has ADDENDA Suicide Screen: C-SSRS Screening [place] Suicide Severity Rating Scale (C-SSRS) screener 1. [...] Not worried about housing near future [facility] reports the following: Within the past 12 [...] full rights to use it throughout the [place] system. PRIMARY SCREEN RESULT: The Primary Screen [...] PF Date Administered: Mar 16, 2024 09:51 [employer]: [employer] Lot: [id number] Exp Date: Nov 13, 2024 [facility]: [id number] Admin Route/Site: INTRAMUSCULAR/LEFT DELTOID Dosage: 0.5mL Vaccine Information Statement(s): INFLUENZA(FLU) VACC(INACTIVATED OR RECOMBINANT)VIS Dec 20, 2020 ([place]) Order By: Policy Administered By: Scarlett Cuevas [...] SCARLETT CUEVAS LPN LPN Signed: 03/16/2024 09:52 05/22/2024 ADDENDUM STATUS: COMPLETED Pneumococcal Conjugate Vaccine (PCV15/PCV20): Pneumococcal vaccine given previously - written records available Documented: PNEUMOCOCCAL CONJUGATE PCV 13 Historical Date Administered: Feb 04, 2018 [employer]co[employer]: [employer] Lot: [id number] Exp Date: October 15, 2019 Outside Location: Outside Healthcare Provider Admin Route/Site: INTRAMUSCULAR/RIGHT DELTOID Dosage: 0.5mL Information Source: FROM OTHER PROVIDER Pneumococcal PPSV23 (Pneumovax): Pneumococcal vaccine given previously - written records available Documented: PNEUMOCOCCAL POLYSACCHARIDE PPV23 Historical Date Administered: Dec 25, 2013 Overcoiler: [employer] Lot: [id number] Exp Date: Aug 05, 2014 Outside Location: Outside Healthcare Provider Admin Route/Site: INTRAMUSCULAR/RIGHT DELTOID Dosage: 0.5mL Information Source: FROM OTHER PROVIDER COVID-19 Immunization: Patient received a prior dose of the Pfizer Bivalent booster. Documented: COVID-19 (PFIZER), MRNA, LNP-S, BIVALENT, PF, 30 MCG/0.3 ML DOSE Historical Date Administered: Feb 17, 2022 Series: Series 1 Overcoiler: [employer] Lot: [id number] Exp Date: Unknown Outside Location: Outside Healthcare Provider Information Source: FROM OTHER PROVIDER /es/ Tiesha Jules RN Registered Nurse Signed: 05/22/2024 13:20 SCARLETT CUEVAS
--- OUTSIDE RECORDS SUMMARY | 2024-06-01 07:43 | XMS_ITS | Continuity of Care Document ---
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 Role Phone Germán MANZO, Ismael Daniel Primary Care Physician [phone] Encounter [facility] [place] Date(s): 05/13/24 - 05/14/[address] [id number] Discharge Disposition: A-D/C Home Attending Physician: Madison Rosas MD Admitting Physician: Hitesh Baer MD Referring Physician: Not on Staff, Referring MD Encounter Type: Disch Obv Allergies, Adverse Reactions, Alerts Substance Criticality Severity [...] influenza virus vaccine, inactivated 03/13/08 Give n [id number] 12y+ bivalent booster vax 02/18/22 Recorded SARS-CoV-2 mRNA ([id number]) vax 10/15/21 Recorded SARS-CoV-2 (COVID-19) mRNA BNT-162b2 [...] toxoids (Td) 03/09/04 Given 1Result Comment: [02/22/2018] [facility] [id number] 2Result Comment: [02/04/2018] [facility] [id number] Medications acetaminophen 325 mg oral tablet 650 [...] Maintenance, 10/07/22 12:44:00 PM EDT, EC Tablet, [facility] 3, Partial fill upon patient request [...] Repeat number: 1 Indication: Angina pectoris, unspecified gabapentin 300 mg oral capsule 600 mg, Capsule, By Mouth, 05/14/24 9:00:00 AM EST Start Date: 05/14/24 Stop Date: 05/14/24 Status: Completed Repeat number: 1 gabapentin 600 mg oral tablet 1 tablet [...] Quantity: 90.0 Unit: tablet Repeat number: 4 metoprolol 50 mg oral tablet, extended release 50 mg, XL Tablet, By Mouth, 05/14/24 9:00:00 AM EST Start Date: 05/14/24 Stop Date: 05/14/24 Status: Completed Repeat number: 1 Vashe Topical Solution 475 mL, Topically, Every [...] 1s/p CABG x 3 for ACS without OK Results Radiology Reports * Exam Date Time Procedure Performing Provider Status 05/13/24 6:[address] Angio Neck Jojo Loyd; Auth ( Verified) Notes: (CT Angio Neck) Reason For Exam: Aneurysm, neck vessel(s);Other: RESULT: CT Angio Neck CT Angio Head, CT Angio Neck Hx of Present Illness: R arm numbness tingling, headache; Reason: Other:; Neuro deficit, acute, stroke suspected; Clinical Question(s): Other:; Hematoma Aneurysm / Other: TECHNIQUE: CT angiogram of the head and neck was performed after bolus administration of intravenous contrast. mL of was administered intravenously. Coronal and sagittal MIP reformatted images were obtained. Additional 3-D images were created on a separate workstation under concurrent supervision by the attending radiologist. All stenoses are measured using NASCET criteria. Weight- based protocol using automatic tube modulation was used to optimize exposure parameters. RADIATION DOSE PARAMETERS: CTDIvol Body: 23.63 mGy, DLP Body: 680 mGy*cm. CTDIvol Head: 45.70 mGy, DLP Head: 773 mGy*cm. COMPARISON: Noncontrast CT head performed concurrently. FINDINGS: CTA OF THE NECK: Arch: There is a three vessel aortic arch. There is mild atherosclerotic plaque of the aortic arch,but origins of the supra aortic vessels are patent. There is evidence of previous CABG. Right carotid system: The common carotid and cervical internal carotid arteries are patent. There is partially calcified atherosclerotic plaque at the carotid bifurcation, resulting in a short segment of severe ICA stenosis (approximately 70%) by NASCET criteria. There appears to be associated withsegment dissection, probably chronic with calcification, which extends from the distal common caroti d artery into the proximal internal carotid artery, for example image 264 series 60. There is also focal severe stenosis at the origin of the external carotid artery. Left carotid system: The common carotid and cervical internal carotid arteries are patent. There iscalcified atherosclerotic plaque at the carotid bifurcation, but no ICA stenosis (0%) by NASCET criteria. There is a left-dominant vertebral artery system. Right vertebral: There is calcified atherosclerotic plaque at the origin with mild to moderate stenosis. Left vertebral: There is calcified atherosclerotic plaque at the origin and in the V1 segment with mild stenosis. Other: Soft tissues and bones: No evidence of lymphadenopathy or mass. The thyroid is unremarkable. Visualized lungs are blurred by motion artifact, without significant superimposed airspace opacity. Multilevel degenerative changes of the spine are noted, without acute osseous abnormality. Sternal wires are noted. CTA OF THE HEAD: Anterior circulation: Bilateral intracranial ICAs and their OFE and MCA branches are patent. There is no significant stenosis, proximal cutoff, aneurysm, or vascular malformation. The right OFE A1 and A2 segments appear hypoplastic, anatomic variant. Posterior circulation: Bilateral intracranial vertebral arteries, the basilar artery, and bilateralsuperior cerebellar and posterior cerebral branches are patent. There is no significant stenosis, proximal cutoff, aneurysm, or vascular malformation. The right vertebral artery terminates as the PICA, anatomic variant. Veins: Major dural venous sinuses are patent. Other: Soft tissues and bones: No midline shift or effacement of the basal cisterns. No space-occupying hemorrhage. No acute territorial loss of lala-white matter differentiation. There have been lens extractions bilaterally. Mild left maxillary sinus mucosal thickening. IMPRESSION: Severe stenosis at the origin of the right ICA associated with a short probably chronic focal dissection extending from the distal common carotid artery into the proximal ICA. Severe stenosis at the origin of the right external carotid artery. No other high-grade stenosis in the major arteries of the head or neck, and no large vessel occlusion A similar preliminary report was provided by [facility]. WSN: [id number] Ordering Physician: Aaron Weathers Dictated By: Claire Worthy MD Dictated Date/Time: 05/14/24 9:14 am Reviewed By: Claire Worthy MD Signed By: Claire Worthy MD Signed Date/Time: 05/14/24 9:14 am Transcribed By: RAMONA Transcribed Date/Time: 05/14/24 9:06 am * Exam Date Time Procedure Performing Provider Status 05/13/24 6:[address] Angio Head Jojo Loyd; Raj ( Verified) Notes: (CT Angio Head) Reason For Exam: Neuro deficit, acute, stroke suspected;Other: RESULT: CT Angio Head CT Angio Head, CT Angio Neck Hx of Present Illness: R arm numbness tingling, headache; Reason: Other:; Neuro deficit, acute, stroke suspected; Clinical Question(s): Other:; Hematoma Aneurysm / Other: TECHNIQUE: CT angiogram of the head and neck was performed after bolus administration of intravenous contrast. mL of was administered intravenously. Coronal and sagittal MIP reformatted images were obtained. Additional 3-D images were created on a separate workstation under concurrent supervision by the attending radiologist. All stenoses are measured using NASCET criteria. Weight- based protocol using automatic tube modulation was used to optimize exposure parameters. RADIATION DOSE PARAMETERS: CTDIvol Body: 23.63 mGy, DLP Body: 680 mGy*cm. CTDIvol Head: 45.70 mGy, DLP Head: 773 mGy*cm. COMPARISON: Noncontrast CT head performed concurrently. FINDINGS: CTA OF THE NECK: Arch: There is a three vessel aortic arch. There is mild atherosclerotic plaque of the aortic arch,but origins of the supra aortic vessels are patent. There is evidence of previous CABG. Right carotid system: The common carotid and cervical internal carotid arteries are patent. There is partially calcified atherosclerotic plaque at the carotid bifurcation, resulting in a short segment of severe ICA stenosis (approximately 70%) by NASCET criteria. There appears to be associated withsegment dissection, probably chronic with calcification, which extends from the distal common caroti d artery into the proximal internal carotid artery, for example image 264 series 60. There is also focal severe stenosis at the origin of the external carotid artery. Left carotid system: The common carotid and cervical internal carotid arteries are patent. There iscalcified atherosclerotic plaque at the carotid bifurcation, but no ICA stenosis (0%) by NASCET criteria. There is a left-dominant vertebral artery system. Right vertebral: There is calcified atherosclerotic plaque at the origin with mild to moderate stenosis. Left vertebral: There is calcified atherosclerotic plaque at the origin and in the V1 segment with mild stenosis. Other: Soft tissues and bones: No evidence of lymphadenopathy or mass. The thyroid is unremarkable. Visualized lungs are blurred by motion artifact, without significant superimposed airspace opacity. Multilevel degenerative changes of the spine are noted, without acute osseous abnormality. Sternal wires are noted. CTA OF THE HEAD: Anterior circulation: Bilateral intracranial ICAs and their OFE and MCA branches are patent. There is no significant stenosis, proximal cutoff, aneurysm, or vascular malformation. The right OFE A1 and A2 segments appear hypoplastic, anatomic variant. Posterior circulation: Bilateral intracranial vertebral arteries, the basilar artery, and bilateralsuperior cerebellar and posterior cerebral branches are patent. There is no significant stenosis, proximal cutoff, aneurysm, or vascular malformation. The right vertebral artery terminates as the PICA, anatomic variant. Veins: Major dural venous sinuses are patent. Other: Soft tissues and bones: No midline shift or effacement of the basal cisterns. No space-occupying hemorrhage. No acute territorial loss of lala-white matter differentiation. There have been lens extractions bilaterally. Mild left maxillary sinus mucosal thickening. IMPRESSION: Severe stenosis at the origin of the right ICA associated with a short probably chronic focal dissection extending from the distal common carotid artery into the proximal ICA. Severe stenosis at the origin of the right external carotid artery. No other high-grade stenosis in the major arteries of the head or neck, and no large vessel occlusion A similar preliminary report was provided by [facility]. WSN: [id number] Ordering Physician: Aaron Weathers Dictated By: Claire Worthy MD Dictated Date/Time: 05/14/24 9:14 am Reviewed By: Claire Worthy MD Signed By: Claire Worthy MD Signed Date/Time: 05/14/24 9:14 am Transcribed By: RAMONA Transcribed Date/Time: 05/14/24 9:06 am * Exam Date Time Procedure Performing Provider Status 05/14/24 1:26 AM MRI Brain W/O Contrast Haven Cox ; Raj (Verified) Notes: (MRI Brain W/O Contrast) Reason For Exam: RIGHT ARM NUMBNESS;Other: RESULT: MRI Brain W/O Contrast MRI Brain W/O Contrast INDICATION / CLINICAL QUESTION: Reason: Other:; RIGHT ARM NUMBNESS; Clinical Question(s): Infarction; Order Comment: Please see Reference Text for complete list of contraindications Infarction TECHNIQUE: MRI of the brain was performed without contrast utilizing sagittal T1, axial T2, axial FLAIR, axial SWAN, and axial DWI sequences. COMPARISON: Head CT 05/13/2024. FINDINGS: BRAIN and EXTRA-AXIAL SPACES: The ventricles and sulci are globally prominent reflecting volume loss. There are scattered FLAIR hyperintensities in the white matter which are nonspecific and there maddison possible small chronic lacunar infarct in the left devi. There is no evidence of restricted diffusion to suggest acute infarction. There is no acute hemorrhage, and there is no midline shift or mass effect. There is a punctate focus of susceptibility artifact in the white matter of the right frontal lobe which could reflect old microhemorrhage. There is also a punctate focus of susceptibility artifact in the lateral left temporal lobe which could reflect old microhemorrhage. There is no extra-axial collection. Flow voids arepreserved in the dominant intracranial vessels. EXTRACRANIAL SOFT TISSUES: There have been lens replacements bilaterally. There is mild scattered mucosal thickening in the paranasal sinuses, without fluid levels. Nonspecific patchy fluid signal inthe left mastoid air cells. BONES: Marrow signal is preserved. IMPRESSION: 1. No acute/subacute infarct, mass, hemorrhage, or other acute intracranial abnormality. 2. Possible small chronic lacunar infarct in the left devi. 3. Scattered T2/FLAIR hyperintense foci in the white matter, nonspecific but most likely reflectingchronic small vessel disease. WSN: [id number] Ordering Physician: Cale Dominguez Dictated By: Claire Worthy MD Dictated Date/Time: 05/14/24 6:44 am Reviewed By: Claire Worthy MD Signed By: Claire Worthy MD Signed Date/Time: 05/14/24 6:44 am Transcribed By: RAMONA Transcribed Date/Time: 05/14/24 6:40 am * Exam Date Time Procedure Performing Provider Status 05/13/24 6:30 PM Chest 2 Views Frontal and Lat Debby Quintana i; Raj (Verified) Notes: (Chest 2 Views Frontal and Lat) Reason For Exam: Chest Pain;Other: RESULT: Chest 2 Views Frontal and Lat Chest 2 Views Frontal and Lat INDICATION: Hx of Present Illness: R arm numbness tingling, headache; Reason: Other:; Chest Pain; Clinical Question(s): CHF COMPARISON: 10/05/2022 FINDINGS: LINES AND TUBES: None. LUNGS AND PLEURA: No evidence of confluent airspace opacity, lung consolidation or pulmonary vascular redistribution. Costophrenic sulci are maintained. No evidence of pneumothorax. HEART, MEDIASTINUM AND BERKLEY: Cardiomediastinal silhouette is stable size. Patient is status post CABG. BONES AND SOFT TISSUES: No acute abnormality. Median sternotomy wires are present. IMPRESSION: No evidence of active cardiopulmonary process WSN: [id number] Ordering Physician: Aaron Weathers Dictated By: Ernesto Phillips Jr, MD Dictated Date/Time: 05/13/24 7:02 pm Reviewed By: Ernseto Phillips Jr, MD Signed By: Ernesto Phillips Jr, MD Signed Date/Time: 05/13/24 7:02 pm Transcribed By: RAMONA Transcribed Date/Time: 05/13/24 7:00 pm * Exam Date Time Procedure Performing Provider Status 05/13/24 6:[address] Head/Brain W/O Contrast Evert , N icole; Auth (Verified) Notes: (CT Head/Brain W/O Contrast) Reason For Exam: Neuro deficit, acute, stroke suspected;Other: RESULT: CT Head/Brain W/O Contrast CT Head/Brain W/O Contrast INDICATION: Hx of Present Illness: R arm numbness tingling, headache; Reason: Other:; Neuro deficit, acute, stroke suspected; Clinical Question(s): Other:; Hematoma Infarction TECHNIQUE: Noncontrast head CT using axial technique and reconstructed in axial and coronal planes.Iterative reconstruction techniques are used to optimize dose and image quality. CTDIvol Body: 23.63 mGy, DLP Body: 680 mGy*cm. CTDIvol Head: 45.70 mGy, DLP Head: 773 mGy*cm. COMPARISON: Concurrent CT angiogram head and neck 05/13/2024 FINDINGS: Glass Novelty [employer] view findings, lines and tubes: Status post median sternotomy with intact wires. BRAIN AND EXTRA-AXIAL SPACES: No parenchymal hemorrhage, midline shift, or mass effect. Lala-white matter differentiation is wellpreserved. No acute infarct. Negative insular ribbon sign. Atherosclerotic vascular calcification of the carotid arteries but negative hyperdense vessel sign. Mild prominence of the ventricles and sulci consistent with parenchymal volume loss. Mild low-density white matter changes. No subarachnoid hemorrhage. No subdural or epidural collection. CALVARIUM, SKULL BASE, AND SOFT TISSUES: No fractures or suspicious bony lesions. Mild mucosal thickening in the paranasal sinuses. The mastoid air cells are clear. Status-post bilateral lens extraction. The extracranial soft tissues are unremarkable. IMPRESSION: No acute intracranial pathology. I have personally reviewed the images and I agree with this report. WSN: [id number] Ordering Physician: Aaron Weathers Dictated By: Iesha King MDu Dictated Date/Time: 05/13/24 6:44 pm Reviewed By: Henry Fernandes MD Signed By: Fernandes MD, Henry S Signed Date/Time: 05/13/24 6:49 pm Transcribed By: RAMONA Transcribed Date/Time: 05/13/24 6:40 pm Vital Signs Most recent to oldest [Reference Range]: 1 2 3 Height 173 cm (05/14/24 10:44 AM) 173 cm (05/14/24 6:50 AM) 173 cm (05/13/24 11:32 PM) Weight 77.5 kg (05/13/24 4:37 PM) Oxygen Saturation [94-100 %] 96 % (05/14/24 10:44 AM) 97 % (05/14/24 6:50 AM) 97 % (05/14/24 3:00 AM) Pulse Rate [55-90 bpm] 66 bpm (05/14/24 10:44 AM) 69 bpm (05/14/24 9:33 AM) 55 bpm (05/14/24 6:50 AM) Blood Pressure [90-138/55-84 mm Hg] 167/65mm Hg *H* (05/14/24 10:44 AM) 163/63mm Hg *H* (05/14/24 9:33 AM) 155/69mm Hg *H* (05/14/24 6:50 AM) Respiratory Rate [16-30 br/min] 16 br/min (05/14/24 10:44 AM) 18 br/min (05/14/24 10:34 AM) 20 br/min (05/14/24 9:34 AM) Temperature [96.8-100.4 DegF] 99.9 DegF (05/14/24 10:44 AM) 98 DegF (05/14/24 6:50 AM) 98 DegF (05/14/24 3:00 AM) Mode of Delivery (Oxygen) Room air (05/14/24 10:44 AM) Room air (05/14/24 6:50 AM) Room air (05/14/24 3:00 AM) Blood pressure sites Arm, right (05/14/24 10:44 AM) Arm, left (05/14/24 6:50 AM) Arm, left (05/14/24 3:00 AM) Temperature Route Oral (05/14/24 10:44 AM) Oral (05/14/24 6:50 AM) Oral (05/14/24 3:00 AM) Dry Weight 77.5 kg (05/13/24 4:37 PM) Weight Obtained Via Patient/family state d (05/13/24 4:37 PM) Social History Social History Type Response Smoking Status Never smoker; Tobacc o user in household: No entered on: 12/18/15 Sex Sex Representation Male (finding) Consult note * Opal Rose MD: PERFORM Event Display: Consult Authored Date: [id number] Patient: ??AISLINN MERIDA ? Age:??79 Years?Sex:??Male?:??1945?? Chief Complaint/Reason for Consult Right internal carotid artery stenosis, chronic dissection flap History of Present Illness Patient is a 79-year-old male with past medical history significant for coronary artery disease,??hypertension,??left sciatica??who presented to the ED with??transient numbness and tingling of the right upper extremity.?? The symptoms started??during breakfast on 05/13/2024.?? No clear provoking??fa ctor.?? He states that he had a??perineal sensation right groin and extremity falls asleep.?? He had continued??motor function and strength??in the extremity??throughout the episode. ??After shaking and flexing the hand,??the symptoms resolved??after about 30 minutes.?In the past,??he had similar??left arm symptoms??which preceded??an acute coronary event. ??Due to concern for??TIA or stroke??versus another coronary event,??he presented to the ED for evaluation.?? CT??of the head??was negative for hemorrhagic stroke.?? MRI??of the brain has been obtained with formal read pending.?? He had a CTA of the neck which showed right??internal carotid artery stenosis of 70%??with??a chronic appearing dissection flap. No left??internal carotid artery stenosis. Review of Systems Negative except as stated above Physical Exam Vitals & Measurements T:??97.5?F?? HR:??57??(Peripheral)?? RR:??18?? BP:??135/67?? SpO2:??96%?? HT:??173??cm?? WT:??77.5??kg?? General appearance: No apparent distress, appears stated age, well developed. Head: Normocephalic, atraumatic. Cardiac: RRR, no murmurs or gallops. Respiratory: Clear to auscultation bilaterally. Abdomen: Soft, nontender, nondistended. Extremities: Able to move all extremities without difficulty. Warm and well perfused. Neurologic status: Alert and oriented x 3. No focal deficits. Psych: Mood and affect normal. Vascular:?? 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 He recently had??transient??numbness and tingling in the right upper extremity, however this??localization??does not correlate??with the expected??left-sided??symptoms??of his right internal carotid artery stenosis were symptomatic.?? We will plan to see the patient??in the outpatient setting to discuss elective??carotid endarterectomy.?? Regarding this chronic dissection flap,??noindication for acute intervention.?? He is on aspirin??for his coronary artery disease??and should continue on. ?? Recommendations: Continue ASA Outpatient follow-up??to discuss??elective right-sided carotid endarterectomy ?? Vascular surgery will sign off at this time. ??Do not hesitate to reach out with any questions or concerns. ?Please page Vascular surgery with any questions or concerns #[phone] ?Case and plan discussed with??Dr. Mercado ?? Problem List/Past Medical History Ongoing Angina pectoris Back pain, lumbosacral Dysfunction of left eustachian tube Hematuria - cause not known - negative workup Hyperlipidemia Hypertension Medicare annual wellness visit, subsequent Prediabetes Procedure/Surgical History Colonoscopy normal: 12/11/22 Home Medications Acetaminophen: 650 mg = 2 tablet, By Mouth, Every 6 hours Aspirin: 81 mg, By Mouth, Daily Atorvastatin: 80 mg = 1 tablet, By Mouth, Daily Durable Medical Equipment (donning aids for compression stockings): See Instructions, use to put onstockings Emollients, Topical: 475 mL, Topically, Every 12 hours Gabapentin: 600 mg = 1 tablet, By Mouth, 3 times a day Metoprolol: 50 mg = 1 tablet, By Mouth, Daily Allergies erythromycin??([D]Nausea and vomiting) Social History Alcohol Use: Current. Type: Beer. Other: 1-2 drinks per day. 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 Exercise Self assessment: Excellent condition. Regular exercise: Yes. Exercise frequency: Daily. Home/Environment Living situation: Home/Independent. Lives with: Spouse. Firearms in household: Yes. Nutrition/Health Diet: Regular. Substance Abuse Use: Never. Tobacco Never smoker, Tobacco user in household: No. Family History Mother (): Aneurysm, cerebral, nonruptured ? 22-JUL-2013 07:21:16<$>; Hemorrhagic shock; Hypertension Father (): CAD - Coronary artery disease; Congestive heart failure Brother (): Heart attack Lab Results Labs Last 24 Hours BLOOD COUNT & DIFF ? Event Name?? Event Result?? Date/Time?? WBC 10.6 k/mm3 05/13/24 17:17:00 RBC 4.57 m/mm3??Low 05/13/24 17:17:00 Hgb 14.5 Gm/dL 05/13/24 17:17:00 Hct 44 % 05/13/24 17:17:00 MCV 96.3 femtoliters??High 05/13/24 17:17:00 MCH 31.7 pg 05/13/24 17:17:00 MCHC 33 Gm/dL 05/13/24 17:17:00 Platelet Count 189 k/mm3 05/13/24 17:17:00 MPV 11 femtoliters 05/13/24 17:17:00 Nucleated RBC (Automated) 0 #/100 WBC'S 05/13/24 17:17:00 ? CHEM GENERAL ? Event Name?? Event Result?? Date/Time?? Sodium 140 mmol/L 05/13/24 19:28:00 Chloride 105 mmol/L 05/13/24 19:28:00 Bicarbonate Level 24 mmol/L 05/13/24 19:28:00 Anion Gap 11 05/13/24 19:28:00 Glucose Level 98 mg/dL 05/13/24 17:17:00 BUN 20 mg/dL 05/13/24 17:17:00 Creatinine-Blood 0.84 mg/dL 05/13/24 17:17:00 ? Images CTA Head 05/13/24 vRADs read Admission evaluation note * Cale Dominguez MD: PERFORM Event Display: Admission Note Authored Date: Patient: ??AISLINN MERIDA ? Age:??79 Years?Sex:??Male?:??1945?? Chief Complaint/Reason for Consultation Right arm numbness History of Present Illness 79 years old male with past medical history of CAD status post CABG, hypertension, hyperlipidemia, carotid artery stenosis??presented to ER with a chief plaint of numbness in her right arm. ? The patient reported that??he was in his usual state of health and??eating breakfast when he??developed numbness in her right arm.?? The patient reported that he was unable to feel his right arm and was having??pins and needle sensations.?? The patient reported that the whole episode lasted for 30 minutes and resolved on its own. ??The patient denied any weakness or reported that he was able to move his arm and lift above his head??during the episode.?? The patient denied??any weakness, blurry vision,??chest pain, shortness of breath, nausea, vomiting ? Review of Systems All pertinent negative or positives are noted in HPI. ??All other systems were reviewed and are negative Objective Measurements?? Height: 173 cm (05/13/24) Weight: 77.5 kg (05/13/24) Dry Weight: 77.5 kg (05/13/24) ? Vital Signs?? Temperature: 97.5 DegF (05/13/24 22:36:00) Temperature Route: Oral (05/13/24 23:32:00) Pulse Rate: 57 bpm (05/13/24 22:36:00) Respiratory Rate: 18 br/min (05/13/24 22:36:00) Systolic Blood Pressure: 135 mm Hg (05/13/24 22:36:00) Diastolic Blood Pressure: 67 mm Hg (05/13/24 22:36:00) Blood pressure sites: Arm, left (05/13/24 23:32:00) Mean Arterial Pressure: 90 mm Hg (05/13/24 22:36:00) Pulse Pressure: 68 mm Hg (05/13/24 22:36:00) Oxygen Saturation: 96 % (05/13/24 22:36:00) Mode of Delivery (Oxygen): Room air (05/13/24 23:32:00) Early Warning Score: 0 (05/13/24 23:53:05) ? Physical Exam Constitutional: Alert, in no acute distress. Head: Normocephalic. ?? Eyes: Pupils are equal, round and reactive to light. Extraocular muscles intact. No pallor or scleral icterus ?? Ear, Nose and Throat: mucous membranes moist. Ears and nose - no obvious deformities. Trachea midline. ?? Neck: Supple, Full range of motion.No JVD or bruits. Respiratory:??Clear to auscultation. No wheezing or rhonchi.??No use of accessory muscles. No tactile fremitus.?? Cardiovascular:??PMI not visible. S1 S2 regular. No murmurs, rubs or gallops. Gastrointestinal:??Abdomen soft, non-tender, non-distended. Normal bowel sounds. No pulsatile mass.No hepatosplenomegaly. Genitourinary:??No costovertebral angle tenderness. Extremities: No lower extremity pitting edema. No cyanosis or clubbing. Neurologic:??AAOx3, Cranial nerves II-XII grossly intact. Speech normal, no facial droop. No focal neurological deficits. Moves all extremities spontaneously. Sensation intact bilaterally.??Flexor plantar response Skin:??No rash.?? Musculoskeletal:??No gross deformities on inspection. Heme/Lymphatics:??Palpation of neck reveals no swelling or tenderness of neck nodes.?? Psychiatric: Normal mood and affect. Assessment/Plan Diagnoses 1. ??Paresthesia of arm ??(R20.2) 2. ??Numbness of arm ??(R20.0) 3. 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 ??Carotid artery stenosis, unilateral ??(I65.29) 5. 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 ??HTN (hypertension) ??(I10) 7. ??HLD (hyperlipidemia) ??(E78.5) ?? Assessment:??The patient is a 79 years old male who is admitted??with numbness and paresthesia of right arm ?? Paresthesia of arm (R20.2): Numbness of arm ??(R20.0) ??Patient reported that??he was sitting eating breakfast when he felt numbness??and??pins/needles sensation in the right arm that lasted for 30 minutes,??denies any other acute complaints NIHS scale is 0 On physical exam, no focal neurological deficit CT head was done that did not show any obvious acute abnormality CTA head and neck was done that showed chronic dissection of??right common carotid artery, also 70%stenosis of??right internal carotid artery Ordered MRI brain to rule out stroke Continue home medical aspirin, Lipitor We will monitor neurological status ?? Carotid artery dissection (I77.71): Carotid artery stenosis, unilateral ??(I65.29) ??Patient presented with numbness and paresthesia of right arm Patient reported that??he has??known stenosis of right carotid artery and is scheduled to see vascular surgeon??on May 27 CTA head and neck was done that showed chronic dissection of right common carotid artery and??rightICA 70% stenosis Patient was seen by vascular surgery??who recommended no acute intervention Currently, patient denying any??headache, neck pain or any other neurological signs or symptoms ?? CAD in wainwright artery (I25.10):??Status post CABG Patient denying any chest pain, shortness of breath or left arm pain Patient came with right arm numbness and reported that??he had similar symptoms??at the time of CABG but it was on the left side??and chest Troponin 18-->22 EKG was done that did not show any evidence of ischemic changes Resume home medication aspirin, Lipitor, metoprolol We will continue to monitor ?? HTN (hypertension) (I10):??Resume home medication metoprolol ?? HLD (hyperlipidemia) (E78.5):??Resume home medication Lipitor ?? VTE Prophylaxis:??Lovenox ?VTE Prophylaxis Assessment:??VTE Prophylaxis Ordered ?? Discharge Planning:??Pending clinical course ?? Ongoing Medical Necessity:??Right arm numbness and paresthesia ?? Code Status:??Full code ? Date of service: May 13, 2024 ? Histories Allergies Allergies ?(Active and Proposed Allergies Only) erythromycin? (Severity: Unknown severity, Onset: Unknown) ?Reactions: [D]Nausea and vomiting ? Past Medical History/Problem List Active Problems(8) Angina pectoris Back pain, lumbosacral Dysfunction of left eustachian tube Hematuria - cause not known - negative workup Hyperlipidemia Hypertension Medicare annual wellness visit, subsequent Prediabetes ? Past Surgical History Colonoscopy normal: 12/11/22 ? Social History Alcohol Details:??Use: Current. ??Type: Beer. ??Other: 1-2 drinks per day. 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 Exercise Details:??Self assessment: Excellent condition. ??Regular exercise: Yes. ??Exercise frequency: Daily. Home/Environment Details:??Living situation: Home/Independent. ??Lives with: Spouse. ??Firearms in household: Yes. Nutrition/Health Details:??Diet: Regular. Substance Abuse Details:??Use: Never. Tobacco Details:??Never smoker, Tobacco user in household: No. ? Family History Mother??(): Aneurysm, cerebral, nonruptured ? 22-JUL-2013 07:21:16<$>; Hemorrhagic shock; Hypertension Father??(): CAD - Coronary artery disease (CABG); Congestive heart failure Brother??(): Heart attack ? Medications Home Medications Acetaminophen (acetaminophen 325 mg oral tablet)?650?Milligram?2?tablet?By Mouth?Every 6 hours Aspirin (aspirin 81 mg oral delayed release tablet)?81?Milligram?By Mouth?Daily Atorvastatin (atorvastatin 80 mg oral tablet)?1?tab(s)?80?Milligram?By Mouth?Daily Durable Medical Equipment (donning aids for compression stockings)?See Instructions?use to put on stockings Emollients, Topical (Vashe Topical Solution)?475?Milliliter?Topically?Every 12 hours Gabapentin (gabapentin 600 mg oral tablet)?1?tab(s)?600?Milligram?By Mouth?3 times a day Metoprolol (metoprolol 50 mg oral tablet, extended release)?50?Milligram?1?tablet?ByMouth?Daily?for 90?Days ? Results Recent Labs BLOOD COUNT & DIFF WBC 10.6 k/mm3 ()?? 05/13/2024 17:17 RBC 4.57 m/mm3 (Low)?? 05/13/2024 17:17 Hgb 14.5 Gm/dL ()?? 05/13/2024 17:17 Hct 44.0 % ()?? 05/13/2024 17:17 MCV 96.3 femtoliters (High)?? 05/13/2024 17:17 MCH 31.7 pg ()?? 05/13/2024 17:17 MCHC 33.0 Gm/dL ()?? 05/13/2024 17:17 Platelet Count 189 k/mm3 ()?? 05/13/2024 17:17 RDW-SD 45.9 femtoliters ()?? 05/13/2024 17:17 MPV 11.0 femtoliters ()?? 05/13/2024 17:17 Nucleated RBC (Automated) 0.0 #/100 WBC'S ()?? 05/13/2024 17:17 Abs. NRBC 0.0 k/mm3 ()?? 05/13/2024 17:17 Abs. Neut 4.4 k/mm3 ()?? 05/13/2024 17:17 Abs. Lymph 1.5 k/mm3 ()?? 05/13/2024 17:17 Abs. [place] 0.9 k/mm3 ()?? 05/13/2024 17:17 Abs. Eo 3.6 k/mm3 (High)?? 05/13/2024 17:17 Abs. Baso 0.1 k/mm3 ()?? 05/13/2024 17:17 Neut % 41.6 % (Low)?? 05/13/2024 17:17 Lymph % 14.5 % (Low)?? 05/13/2024 17:17 [place] % 8.5 % ()?? 05/13/2024 17:17 Eos % 34.4 % (High)?? 05/13/2024 17:17 Baso % 0.8 % ()?? 05/13/2024 17:17 Imm Gran 0.2 % ()?? 05/13/2024 17:17 Abs. Imm Gran 0.0 k/mm3 ()?? 05/13/2024 17:17 ?? CARDIAC High Sensitivity Troponin (HSTnT) 22 ng/L (High)?? 05/13/2024 19:28 ?? CHEM GENERAL Sodium 140 mmol/L ()?? 05/13/2024 19:28 Potassium 4.7 mmol/L ()?? 05/13/2024 19:28 Chloride 105 mmol/L ()?? 05/13/2024 19:28 Bicarbonate Level 24 mmol/L ()?? 05/13/2024 19:28 Anion Gap 11 ()?? 05/13/2024 19:28 Glucose Level 98 mg/dL ()?? 05/13/2024 17:17 BUN 20 mg/dL ()?? 05/13/2024 17:17 Creatinine-Blood 0.84 mg/dL ()?? 05/13/2024 17:17 Estimated GFR Creatinine 90 ML/MIN/1.73 M2 ()?? 05/13/2024 17:17 Calcium 9.6 mg/dL ()?? 05/13/2024 17:17 ?? URINE OTHER Est Creatinine Clearance 71.51 mL/min ()?? 05/13/2024 18:31 ? Coagulation Profile?? No qualifying data available. ? EKG study * Event Display: ECG 12-Lead Authored Date: Please click on pdf link to open report * Event Display: ECG 12-Lead Authored Date: Ventricular Rate: 70 BPM Atrial Rate: 70 BPM P-R Interval: 194 ms QRS Duration: 154 ms Q-T Interval: 432 ms QTC Calculation(Bazett): 466 ms P Carbon: 43 degrees R Carbon: -47 degrees T Carbon: 76 degrees Normal sinus rhythm Left axis deviation Left bundle branch block Abnormal ECG When compared with ECG of 05-Oct-2022 13:57, QRS axis Shifted left QRS voltage has increased Nonspecific T wave abnormality no longer evident in Inferior leads T wave inversion less evident in Lateral leads Confirmed by SALMA MATSON MD ([id number]) on 05/14/2024 9:53:35 AM [place] * Katie Orozco RN: PERFORM, SIGN, VERIFY Event Display: Progress Note Hospital Authored Date: Patient: AISLINN MERIDA Age: 79 years Sex: Male : 1945 Associated Diagnoses: None Author: Katie Orozco RN Findings Evaluation Patient alert verbal oriented x4, denies pain at this time no s/s of acute distress noted. Patient was discharge, discharge instructions review with patient he was able to teach back, IV site discontinue tip intact. Waiting for his to go home. . * Katarzyna BOLDEN, Lita: PERFORM, SIGN, VERIFY Event Display: Progress Note Hospital Authored Date: [id number] Patient: AISLINN MERIDA Age: 79 years Sex: Male : 1945 Associated Diagnoses: None Author: Katarzyna BOLDEN, Lita Findings Narrative/Incidental patient came in for right upper extremity pain and numbess. patient denies any headache, numbness or tingling upon assessment. patient aox4, moving all extremities ambulating with a steady gait. sb on tele with ivcd. sating wnl on ra denies sob respirations even and unlabored. cardiac diet. bm 28thcontient x2 using bathroom. mri brain completed. ct head and neck obtained. awaiting results of mri. vs stale call joseph in reach able to ring appropriatley.... Note * Katie Orozco RN: PERFORM Event Display: Discharge/Transfer Note Hospital Authored Date: [id number] Nursing Discharge Note Entered On: 05/14/2024 14:19 EST Performed On: 05/14/2024 14:18 EST by Katie Orozco RN Nursing Discharge Note 2 Discharge Time : 05/15/2024 12:45 EST Discharge Level of Care at Discharge : Home/Prison/Foster Care Patient Left Unit Via : Wheelchair Patient Accompanied Off Unit with : Responsible adult DC Instructions Provided & Signed by Pt : Yes Patient Understands D/C Instructions : Yes Patient Instructions Discharge Signed : Yes Did Pt have Specialty Bed or Wound Vac : No Katie Orozco RN - 05/14/2024 14:18 EST * Ralph MANZO, Madison: PERFORM, MODIFY Event Display: Discharge/Transfer Note Hospital Authored Date: [id number] Patient: ??AISLINN MERIDA ? Age:??79 Years?Sex:??Male?:??1945?? Patient Information Discharge Location: [facility] Primary Care Physician: Ismael Dunlap MD Admit Date/Time: 05/13/2024 16:17 Discharge Disposition Discharge Disposition: Home: No Services Discharge Diagnosis Paresthesia of arm (R20.2) Numbness of arm (R20.0) Carotid artery dissection (I77.71) Carotid artery stenosis, unilateral (I65.29) CAD in wainwright artery (I25.10) HTN (hypertension) (I10) HLD (hyperlipidemia) (E78.5) _ Discharge Medications Acetaminophen (acetaminophen 325 mg oral tablet)?650?Milligram?2?tablet?By Mouth?Every 6 hours Aspirin (aspirin 81 mg oral delayed release tablet)?81?Milligram?By Mouth?Daily Atorvastatin (atorvastatin 80 mg oral tablet)?1?tab(s)?80?Milligram?By Mouth?Daily Durable Medical Equipment (donning aids for compression stockings)?See Instructions?use to put on stockings Emollients, Topical (Vashe Topical Solution)?475?Milliliter?Topically?Every 12 hours Gabapentin (gabapentin 600 mg oral tablet)?1?tab(s)?600?Milligram?By Mouth?3 times a day Metoprolol (metoprolol 50 mg oral tablet, extended release)?50?Milligram?1?tablet?ByMouth?Daily?for 90?Days ? Allergies Allergies ?(Active and Proposed Allergies Only) erythromycin? (Severity: Unknown severity, Onset: Unknown) ?Reactions: [D]Nausea and vomiting ? PCP Follow-Up/Heads-Up Please f/u for possible TIA -- needs risk factor control. Future Appointments Wednesday 7:15 AM EST ?? With: David GARCIA, Sergio Keyes Where: [facility] [address] [place] [id number]- Status: Pending Objective Assessment and Plan 79 years old male who is admitted??with numbness and paresthesia of right arm ?? Paresthesia of arm (R20.2): Numbness of arm ??(R20.0) ??Patient reported that??he was sitting eating breakfast when he felt numbness??and??pins/needles sensation in the right arm that lasted for 30 minutes,??denies any other acute complaints NIHS scale is 0 On physical exam, no focal neurological deficit CT head was done that did not show any obvious acute abnormality CTA head and neck was done that showed chronic dissection of??right common carotid artery, also 70%stenosis of??right internal carotid artery Ordered MRI brain to rule out stroke - negative. Continue home medical aspirin, Lipitor Follow up with PCP outpatient - recommend risk factor modification. ?? Carotid artery dissection (I77.71): Carotid artery stenosis, unilateral ??(I65.29) ??Patient presented with numbness and paresthesia of right arm Patient reported that??he has??known stenosis of right carotid artery and is scheduled to see vascular surgeon??on May 27 CTA head and neck was done that showed chronic dissection of right common carotid artery and??rightICA 70% stenosis Patient was seen by vascular surgery??who recommended no acute intervention -- outpatient follow upfor elective repair. Currently, patient denying any??headache, neck pain or any other neurological signs or symptoms ?? CAD in wainwright artery (I25.10):??Status post CABG Patient denying any chest pain, shortness of breath or left arm pain Patient came with right arm numbness and reported that??he had similar symptoms??at the time of CABG but it was on the left side??and chest Troponin 18-->22 >> flat around 22-23. EKG was done that did not show any evidence of ischemic changes Resume home medication aspirin, Lipitor, metoprolol ?? HTN (hypertension) (I10):??Resume home medication metoprolol ?? HLD (hyperlipidemia) (E78.5):??Resume home medication Lipitor ? Vital Signs?? Temperature: 99.9 DegF (05/14/24 10:44:00) Temperature Route: Oral (05/14/24 10:44:00) Pulse Rate: 66 bpm (05/14/24 10:44:00) Respiratory Rate: 16 br/min (05/14/24 10:44:00) Systolic Blood Pressure:??167 mm Hg??High (05/14/24 10:44:00) Diastolic Blood Pressure: 65 mm Hg (05/14/24 10:44:00) Blood pressure sites: Arm, right (05/14/24 10:44:00) Mean Arterial Pressure: 99 mm Hg (05/14/24 10:44:00) Pulse Pressure: 102 mm Hg (05/14/24 10:44:00) Oxygen Saturation: 96 % (05/14/24 10:44:00) Mode of Delivery (Oxygen): Room air (05/14/24 10:44:00) Early Warning Score: 0 (05/14/24 10:45:49) ? Mobility & Ambulation Level Mobility & Ambulation Level?? No qualifying data available. ?? Therapeutic Activity Therapeutic Activities/Mobility/Balance?? No qualifying data available. ?? . Physical Exam Constitutional: Alert, in no distress. Mental Status: Oriented to person, place and time. Head: Normocephalic. Eyes: Pupils are equal, round and reactive to light. Extraocular muscles intact. Ear, Nose and Throat: Oropharynx clear, mucous membranes moist. Ears and nose without masses, lesions or deformities. Trachea midline. Neck: Supple, Full range of motion. Respiratory: Clear to auscultation. No wheezing, rales or rhonchi. Cardiovascular: S1 S2 regular. No murmurs, rubs or gallops. Gastrointestinal: Abdomen soft, non-tender, non-distended. Normal bowel sounds. No pulsatile mass. No hepatosplenomegaly. Genitourinary: No costovertebral angle tenderness. Neurologic: Cranial nerves II-XII grossly intact. No focal neurological deficits. Flexor plantar response. Moves all extremities spontaneously. Sensation intact bilaterally. Skin: No rashes or lesions. No petechiae or purpura.?? Musculoskeletal: No cyanosis or clubbing. No gross deformities. Normal range of motion. Heme/Lymphatics/Immun: Palpation of neck reveals no swelling or tenderness of neck nodes. Palpationof groin reveals no swelling or tenderness of groin nodes. Psychiatric: Normal mood and affect Pending Results No Pending Results Follow-Up Appointments Added Follow Up ?Time Frame ?Comments Rogelio MANZO, Jesenia Harris?2 to 3 weeks?Call next week??to schedule appointment. Eval for??R CEA Patient Instructions Please continue all home medications Follow up with vascular surgeon and PCP after discharge -- please call the vascular surgery office with the number provided in your paperwork to schedule follow up. Post Discharge Care Discharge ?05/14/24 10:48:00 EST ?Order Comment:?? Discharge Prescriptions ?ePrescribed, 05/14/24 10:48:00 EST ?Order Comment:?? Home Health Face to Face ^HomeHealthFTF Results Discharge Labs BLOOD COUNT & DIFF WBC 9.8 k/mm3 ()?? 05/14/2024 04:12 RBC 4.75 m/mm3 ()?? 05/14/2024 04:12 Hgb 15.1 Gm/dL ()?? 05/14/2024 04:12 Hct 45.1 % ()?? 05/14/2024 04:12 MCV 94.9 femtoliters (High)?? 05/14/2024 04:12 MCH 31.8 pg ()?? 05/14/2024 04:12 MCHC 33.5 Gm/dL ()?? 05/14/2024 04:12 Platelet Count 175 k/mm3 ()?? 05/14/2024 04:12 RDW-SD 45.6 femtoliters ()?? 05/14/2024 04:12 MPV 10.9 femtoliters ()?? 05/14/2024 04:12 Nucleated RBC (Automated) 0.0 #/100 WBC'S ()?? 05/14/2024 04:12 Abs. NRBC 0.0 k/mm3 ()?? 05/14/2024 04:12 Abs. Neut 4.4 k/mm3 ()?? 05/13/2024 17:17 Abs. Lymph 1.5 k/mm3 ()?? 05/13/2024 17:17 Abs. [place] 0.9 k/mm3 ()?? 05/13/2024 17:17 Abs. Eo 3.6 k/mm3 (High)?? 05/13/2024 17:17 Abs. Baso 0.1 k/mm3 ()?? 05/13/2024 17:17 Neut % 41.6 % (Low)?? 05/13/2024 17:17 Lymph % 14.5 % (Low)?? 05/13/2024 17:17 [place] % 8.5 % ()?? 05/13/2024 17:17 Eos % 34.4 % (High)?? 05/13/2024 17:17 Baso % 0.8 % ()?? 05/13/2024 17:17 Imm Gran 0.2 % ()?? 05/13/2024 17:17 Abs. Imm Gran 0.0 k/mm3 ()?? 05/13/2024 17:17 ?? CARDIAC High Sensitivity Troponin (HSTnT) 22 ng/L (High)?? 05/14/2024 08:32 ? CHEM GENERAL Sodium 140 mmol/L ()?? 05/14/2024 04:12 Potassium 4.3 mmol/L ()?? 05/14/2024 04:12 Chloride 106 mmol/L ()?? 05/14/2024 04:12 Bicarbonate Level 24 mmol/L ()?? 05/14/2024 04:12 Anion Gap 10 ()?? 05/14/2024 04:12 Glucose Level 96 mg/dL ()?? 05/14/2024 04:12 BUN 18 mg/dL ()?? 05/14/2024 04:12 Creatinine-Blood 0.83 mg/dL ()?? 05/14/2024 04:12 Estimated GFR Creatinine 90 ML/MIN/1.73 M2 ()?? 05/14/2024 04:12 Calcium 9.2 mg/dL ()?? 05/14/2024 04:12 Magnesium 2.0 mg/dL ()?? 05/14/2024 04:12 ? URINE OTHER Est Creatinine Clearance 72.38 mL/min ()?? 05/14/2024 05:24 ? Blood Glucose Trend Glucose Level: 96 mg/dL (05/14/24 04:12:00) Glucose Level: 98 mg/dL (05/13/24 17:17:00) ? 40??minutes spent on discharge * Katie Orozco RN: PERFORM Event Display: Patient Education/Instruction Authored Date: [id number] Inpatient Adult Discharge Instructions. [address] [address] Name: AISLINN MERIDA : 1945?? Visit: 05/13/2024 16:17?? Current Date: 05/14/2024 10:52 ?? Account: [id number]?? Inpatient Adult Discharge Instructions We would like to thank you for allowing us to assist you with your healthcare needs. The following includes patient education materials and information regarding your injury/illness. Our entire staffstrives to provide an excellent experience for our patients and their families. PLEASE ENSURE YOU FOLLOW-UP PER THE INSTRUCTIONS BELOW! ?? YOUR OPINION IS IMPORTANT TO US! Please complete the survey you may receive by mail or email. Your feedback will be used to make improvements to the healthcare experiences of our patients and their families. Surveys are administered by [employer] ?? If further treatment with your primary care physician or another doctor is recommended, it is important for you to keep the appointment. Call your primary care physician or return to the Emergency Department immediately if your condition worsens, fails to improve, or new symptoms develop. If you need to find a doctor, you can call [facility] [employer] [facility] [facility] for a referral at [phone] or toll free at [phone]) or log in to [email or web address].. ?? [facility], in keeping with [facility] guidance, no longer requires face masks for [...] medical provider or home test kit. ?? You can view and manage your care through the patient portal or by using a health care linda of your choosing. [employer] is a website that allows you to securely view your medical information including your hospital discharge summary, office visit summaries, medications and follow-up visits. You can also request appointments, renew medications, and request access to your medical information using a health care linda of your choosing, or just ask a question. You can enroll at [email or web address] or register during your next office visit. You have been discharged from [facility], Patient Care Unit: D3B??. If you have any questions regarding these instructions, including results of studies pending, afteryou leave, please call us and we will be happy to assist you 07/12. [facility] Your Care Team Attending Physician Madison Rosas MD?? Consulting Providers Madison Rosas MD?? Discharging Providers Madison Rosas MD Reason for Your Visit Pt ??is ??coming from an Urgent care , reports @ 0830am pt c/o right arm numbness for approx 30minutes then resolved on its ??own. Per EMS pt had same symptoms 2022 when he was seen at went into cardiac ??arrest, ended up cardiac ??bypass. Pt has no chest p?? 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 You may have had other tests and procedures not included in this list. Please discuss all test results with your provider. Basic Metabolic Panel CBC CBC w/ Differential ELECTROLYTES High??Sensitivity??Troponin T Magnesium Level Troponin T, High Sensitivity CT Angio Head CT Angio Neck CT Head/Brain W/O Contrast MRI Brain W/O Contrast XR Chest 2 Views Frontal and Lat Basic Metabolic Panel?? CBC?? CBC w/ Differential?? CT Angio Head?? CT Angio Neck?? CT Head/Brain W/O Contrast?? Electrolytes?? High??Sensitivity??Troponin T (Troponin T, High Sensitivity)?? MRI Brain W/O Contrast?? Magnesium Level?? Chest 2 Views Frontal and Lat (XR Chest 2 Views Frontal and Lat)?? Primary Care Provider Germán MANZO, Ismael Daniel? Advance Directive Health Care Proxy on File Yes - Health Care Proxy Discharge Vitals Temperature: 99.9 DegF Height: 173 cm Pulse Rate: 66 bpm Weight: 77.5 kg Respiratory Rate: 16 br/min ?? Systolic Blood Pressure:??167 mm Hg??High ?? Diastolic Blood Pressure: 65 mm Hg ?? Oxygen Saturation: 96 % ?? Studies Pending All studies ordered during this hospital stay have been completed unless listed below. Please discuss all pending results with your provider listed above in these instructions. ?? High??Sensitivity??Troponin T (Troponin T, High Sensitivity)?? What to do next Instructions From Your Doctor Please continue all home medications Follow up with vascular surgeon and PCP after discharge -- please call the vascular surgery office with the number provided in your paperwork to schedule follow up. ?? Orders? 05/14/24 10:48:00 EST?? Prescriptions??, ??05/14/24 10:48:00 EST?? Scheduled Follow-Up Appointments Wednesday 7:15 AM EST ?? With: David GARCIA, Sergio Keyes Where: [facility] [address] [place] [address]- Status: Pending You Need to Schedule the Following Appointments Follow Up with??Rogelio MANZO, Jesenia Harris When:??Within 2 to 3 weeks Why: Call next week??to schedule appointment. Eval for??R CEA Where: [address] [facility] [place] [address]- Discharge Medications AISLINN MERIDA :1945 Visit Date:05/13/2024 Medications: Please continue your medications until treatment is completed or stopped by your provider. Medications not listed below should be discontinued. Discuss any questions related to medications with your provider. What How Much When Why Instructions Next Dose Unchanged Acetaminophen (acetaminophen 325 mg oral tablet) 2 tab(s) Oral Every 6 hours Take every 6 hours 05/14/2024 1:00 PM Unchanged Aspirin (aspirin 81 mg oral delayed release tablet) 81 Milligram Oral Daily 05/15/2024 9:00 AM Unchanged Atorvastatin (atorvastatin 80 mg oral tablet) 1 tab(s) Oral Daily 05/15/2024 9:00 AM Unchanged Durable Medical Equipment (donning aids for compression stockings) See instructions Angina pectoris use to put on stockings ?? continue home regiment Unchanged Emollients, Topical (Vashe Topical Solution) 475 Milliliter Topically Every 12 hours 05/13/2024 Unchanged Gabapentin (gabapentin 600 mg oral tablet) 1 tab(s) Oral 3 times a day 05/14/2024 1:00 PM Unchanged Metoprolol (metoprolol 50 mg oral tablet, extended release) 1 tab(s) Oral Daily Duration: 90 Days 05/15/2024 9:00 AM Prescription Given During Visit No new medications prescribed at time of discharge.?? Laboratory Results Below is a partial list of the most recent Laboratory test results done prior to this discharge. You may have had other tests and procedures not included in this list. Please discuss all test resultswith your provider. Est Creatinine Clearance - 72.38 mL/min (05/14/2024) Basic Metabolic Panel (05/14/2024) ???Sodium - 140 mmol/L???Potassium - 4.3 mmol/L???Chloride - 106 mmol/L???Bicarbonate Level - 24 mmol/L???Anion Gap - 10???Glucose Level - 96 mg/dL???BUN - 18 mg/dL???Creatinine-Blood - 0.83 mg/dL???Estimated GFR Creatinine - 90 ML/MIN/1.73 M2???Calcium - 9.2 mg/dL CBC (05/14/2024) ???WBC - 9.8 k/mm3???RBC - 4.75 m/mm3???Hgb - 15.1 Gm/dL???Hct - 45.1 %???MCV - 94.9 femtoliters???MCH - 31.8 pg???MCHC - 33.5 Gm/dL???Platelet Count - 175 k/mm3???RDW-SD - 45.6 femtoliters???MPV - 10.9 femtoliters???Nucleated RBC (Automated) - 0.0 #/100 WBC'S???Abs. NRBC - 0.0 k/mm3 CBC w/ Differential (05/13/2024) ???WBC - 10.6 k/mm3???RBC - 4.57 m/mm3???Hgb - 14.5 Gm/dL???Hct - 44.0 %???MCV - 96.3 femtoliters???MCH - 31.7 pg???MCHC - 33.0 Gm/dL???Platelet Count - 189 k/mm3???RDW-SD - 45.9 femtoliters???MPV - 11.0 femtoliters???Nucleated RBC (Automated) - 0.0 #/100 WBC'S???Abs. NRBC - 0.0 k/mm3???Abs. Neut -4.4 k/mm3???Abs. Lymph - 1.5 k/mm3???Abs. [place] - 0.9 k/mm3???Abs. Eo - 3.6 k/mm3???Abs. Baso - 0.1 k/mm3???Neut % - 41.6 %???Lymph % - 14.5 %???[place] % - 8.5 %???Eos % - 34.4 %???Baso % - 0.8 %???Imm Gran - 0.2 %???Abs. Imm Gran - 0.0 k/mm3 ELECTROLYTES (05/13/2024) ???Sodium - 140 mmol/L???Potassium - 4.7 mmol/L???Chloride - 105 mmol/L???Bicarbonate Level - 24 mmol/L???Anion Gap - 11 High??Sensitivity??Troponin T (05/13/2024) ???High Sensitivity Troponin (HSTnT) - 22 ng/L Magnesium Level (05/14/2024) ???Magnesium - 2.0 mg/dL Troponin T, High Sensitivity (05/14/2024) ???High Sensitivity Troponin (HSTnT) - 22 ng/L You will be contacted within 72 hours with your results. Allergies (NKA means No Known Allergies) erythromycin??([D]Nausea and vomiting) Problems Active Problems??(8) Angina pectoris?? Back pain, lumbosacral?? Dysfunction of left eustachian tube?? Hematuria - cause not known - negative workup?? Hyperlipidemia?? Hypertension?? Medicare annual wellness visit, subsequent?? Prediabetes?? Education Materials Below is the list of Educational Leaflet Providered with your Discharge Instructions. Valuables and Belongings I fully understand and agree that [facility] accepts no responsibility for all my personal property including clothing, toilet articles, radios, jewelry, dentures, hearing aids, rings, money, or any other property that is in my possession or is brought to me after admission. I understand certain valuables may be placed in a hospital safe for a short period of time. I understand that the hospital is not liable for loss or damage due to accident, fire, or other natural occurrence while said property is in the safe. I accept full responsibility for any personal property that I keep with me, and will not hold the hospital responsible in case of loss or disappearance. I acknowledge that i have been encouraged to send valuables and belongings home. ?? No Valuables/Belongings: No valuables/belongings present Review of Valuable and Belonging List: With patient Date for Pt to Sign Valuables/Belongings: 05/13/24 23:37:00 ?? Other Discharge Information ? Pulmonary Rehab Status?? Pulmonary Rehab Discharge Status?? Respiratory Rate: 16 br/min ? Common Emergency Awareness Tips IS IT A [...] are strongly encouraged to quit. Please call [facility] [employer] Link at [phone] or [phone] ([phone]) or log in to [email or web address] for referrals to smoking cessation programs. ?? 169 Suicide & Crisis Lifeline is available 07/12 if you or someone you know needs to find a reason to keep living. By calling 616 you'll be connected to a skilled, trained counselor at a crisis center in your area. INPATIENT DISCHARGE INSTRUCTIONS SIGNATURE PAGE AISLINN MERIDA Location:[facility] Registration Date and Time:05/13/2024 16:17 EST Primary Care Physician: Ismael Dunlap MD, Attending Physician: Ralph MANZO, [place], Chantell MERIDA AISLINN, have received the above patient education materials/instructions and have verbalized understanding. If ambulance or transport services are being used I further acknowledge being given a choice of service. ?? If you need to contact me, please call me at this number: . Patient/Plant Operator Control Room Operator Name: Patient/Plant Operator Control Room Operator Signature: Relationship to Patient: Witness Name/Signature: Date: Patient Care team information Care Team Personnel Name: Payal Mancera RN Position: [facility] RN Member Role: Primary Care Nurse Name: Gaby Villagomez RN Position: [facility] RN Member Role: Primary Care Nurse Name: Brittnee Young RN Position: [facility] RN Member Role: Primary Care Nurse Name: Alessandra Knapp RN Position: [facility] RN Member Role: Primary Care Nurse Name: Ismael Dunlap MD Position: [facility] Physician - Primary Care Member Role: PCP Address: [address] [place] [id number] Telecom: Name: Asha Atwood RN Position: [facility] RN Member Role: Primary Care Nurse Name: Amy Ward RN Position: [facility] JUDY RN W/OE and Tasks Member Role: Primary Care Nurse Name: Perla Lawton RN Position: [facility] RN Member Role: Primary Care Nurse Name: Elena Don RN Position: [facility] RN Member Role: Primary Care Nurse Name: Mary Melton RN Position: [facility] RN Member Role: Primary Care Nurse Name: Katie Orozco RN Position: [facility] RN Member Role: Primary Care Nurse Name: Narcisa Isaac RN Position: [facility] RN Member Role: Primary Care Nurse Care Team Related Persons Name: FUAD STEVAN Insurance Providers Guarantor name: AISLINN MERIDA Health Plan Information #: 2 Payer: MEDEX Member Number: [id number] Policy Number: NA Group Number: NA Health Plan Information #: 1 Payer: MEDICARE PART B OUTPT Member Number: [id number] Policy Number: NA Group Number: NA
--- OUTSIDE RECORDS SUMMARY | 2024-06-01 07:43 | XMS_ITS ---
Author Organization [facility] Address [address] [facility] [place] [address] Care Team Providers Care Bingo Floater Name Role Phone Cierra Cassidy Unavailable [phone] ALLERGIES, ADVERSE REACTIONS, ALERTS Substance Code Code System Type Reaction Severity Status Start Date End Date No known non-drug allergies RxNorm Other substance eduardo rgy () 1 No known drug allergies RxNorm Other substance allergy () 1 No known allergies RxNorm Other substance allergy () 1 MEDICATIONS Medication Code Code System Start Date Stop Date Route Dosage Directions Fill Instructions atorvastatin 0 RxNorm oral gabapentin RxNorm 4 1 metoprolol succinate 0 RxNorm oral Adult Low Dose Aspirin 0 RxNorm oral PROBLEMS Problem Name Code Code System Start Date End Date Stat us Hyperlipidemia 10728182 [facility] 09/22/2022 Activ e Chest pain, unspecified 801949502 [facility] 09/22/2022 Resolved Hypertension 32493057 [facility] 09/22/2022 Active Cardiac arrest, cause unspecified 326429112 [facility] 09/23/19 23 Active Left bundle-branch block, unspecified 21916872 [facility] Active Paresthesia of skin 122668416 [facility] 05/13/2024 Active ENCOUNTERS Encounter Diagnosis Code Code System Date Stat us Low back pain, unspecified 417989809 [facility] 02/11/2024 Active IMMUNIZATIONS * None VITAL SIGNS Code Code System Vitals Name Date Value and Un its 8462-4 [facility] Blood Pressure-Diastolic 02/11/2024 82 mmHg 8480-6 [facility] Blood Pressure-Systolic 02/11/2024 1 34 mmHg 8867-4 [facility] Heart Rate 02/11/2024 79 /min 9279-1 [facility] Respiratory Rate 02/11/2024 16 /min 8310-5 [facility] Body Temperature 02/11/2024 97.7 F 73560-6 [facility] Oxygen Saturation 02/11/2024 97 % SOCIAL [...]
--- OUTSIDE RECORDS SUMMARY | 2024-06-01 07:43 | XMS_ITS ---
Author Organization [facility] Address [address] [facility] [place] [address] Care Team Providers Care Sales Relationship Manager Name Role Phone Gavin Mendoza Unavailable [phone] ALLERGIES, ADVERSE REACTIONS, ALERTS Substance Code Code [...] Start Date End Date Stat us Hyperlipidemia 01914401 [facility] 09/22/2022 Activ e Chest pain, unspecified 692780064 [facility] 09/22/2022 Resolved Hypertension 29140136 [facility] 09/22/2022 Active Cardiac arrest, cause unspecified 607045254 [facility] 09/23/19 23 Active Left bundle-branch block, unspecified 70726851 [facility] Active Paresthesia of skin 974221383 [facility] 05/13/2024 Active ENCOUNTERS Encounter Diagnosis Code Code System Date Stat us Paresthesia of skin 673060298 [facility] 05/13/2024 Activ e IMMUNIZATIONS * None VITAL SIGNS Code Code System Vitals Name Date Value and Un its 8462-4 [facility] Blood Pressure-Diastolic 05/13/2024 85 mmHg 8480-6 [facility] Blood Pressure-Systolic 05/13/2024 1 67 mmHg 8867-4 [facility] Heart Rate 05/13/2024 72 /min 9279-1 [facility] Respiratory Rate 05/13/2024 18 /min 8310-5 [facility] Body Temperature 05/13/2024 98.0 F 30816-9 [facility] Oxygen Saturation 05/13/2024 95 % SOCIAL HISTORY [...] Gifty Stein - 05/13/2024 ED TransferRef[facility]: [facility] [place], [place] [address]G: F: Schedule: CompletedMode of transport is EMSStability Status is stableOrdered 05/13/2024 03:31 PM by True Gaines edited 05/25/2024 11:17 AM by Gifty Stein MA HARGE SUMMARY NOTES * None HISTORY AND PHYSICAL NOTES * Patient: AISLINN MERIDA, Sex: M (ID# [id number]) Date of : 1945 (79 years) Visit on 05/13/2024 (Log# [id number]) Historian: Self Triage Notes: This morning he had pain in his right arm all the way to his finger tips, also his arm felt like itfell asleep, also having 0high blood pressure today. History of Present Illness: 79-year-old male who reports onset of [id number]-mbb-yvxehph in the right arm. Episode lasted 30 [...] emergency department. Referrals: ED Transfer Referred To: [facility] ED [address] [place] [address] T: F: Schedule: To be scheduled STAT. [...]
[2024-06-01] MEDS: Lactated Ringers 1,000 ML 50 ML IVCONT (09:26)
--- NOTE | 2024-06-01 09:48 | MHC.SHP ---
Pre-Procedural Eval Section A - 24 Hr Update-Section A only Date of Service: 06/01/24 The patient is an INPATIENT: No Section B - Complete if H&P > 30 days Chief Complaint: Radiculopathy, lumbar region Allergies: Allergies Allergy/AdvReac Type Severity Reaction Status Date / Time No Known Allergies Allergy Verified 04/24/24 09:38 Review of Systems Sugical H&P ROS: Negative: Constitution, Cardiovascular, Respiratory, Neurological, Psychiatric, Hem-Onc, Allergic/Immunologic, Gastrointestinal, Genitourinary, Musculoskeletal, Integumentary, Endocrine and Eyes/Ears/Nose/Throat Exam Surgical H&P Exam: Normal: HEENT, Normal: Heart, Normal: Lungs, Normal: Extremities, Normal: Abdomen, Normal: Skin and Normal: Neurological (Awake, alert) Plan I have reviewed the history and physical and performed a pertinent physical examination on my patient. No changes have occurred unless specified. Left L5-S1 hemilaminotomy, diskectomy and L5 foraminotomy Time Spent With Patient Time: Total time managing care of this patient today __5__ minutes.
[2024-06-01] MEDS: methocarbamoL 750 MG TABLET PO (10:01)
[2024-06-01] MEDS: Gabapentin 300 MG CAPSULE PO (10:01)
--- NOTE | 2024-06-01 11:18 | P.DS_ITS ---
DS: Providers Provider Date of Service: 06/01/24 Date of discharge: 06/01/24 Primary care physician: Unknown Physician Admitting clinician: Nilay Stockton DS: Diagnosis Discharge Diagnosis (1) Lumbar radiculopathy: Status: Acute DS: Summary Time Attestation Discharge Coordination Time (in mins): 5 Quality: Safe Use of Opioids Does Pt have an Active Cancer Diagnosis on the Problem List?: No Quality: Stroke Does the patient have a stroke diagnosis?: No Physical Exam Vital Signs: Vital Signs: Last Vital Signs Temp 99.0 F 06/01/24 09:18 Pulse 67 06/01/24 09:18 Resp 16 06/01/24 09:18 BP 127/97 H 06/01/24 09:18 Pulse Ox 97 06/01/24 09:18 O2 Del Method Room Air 06/01/24 09:18 BMI result Body Mass Index 27.1 Discharge Plan Discharge Patient Disposition: Home, Self-Care Referrals: Physician,Unknown J [Primary Care Provider] - 1 Week Discharge Medications: New docusate sodium [Colace] 100 mg capsule 100 mg PO BID Qty: 20 0RF oxycodone 5 mg tablet 5 mg PO Q4H PRN (Reason: pain) Qty: 30 0RF Rx Instructions: Partial Fill upon patient request. Continued atorvastatin 80 mg Tablet 80 mg PO BEDTIME gabapentin 600 mg tablet 600 mg PO TID metoprolol succinate 50 mg Tablet Extended Release 24 Hr 50 mg PO QAM amlodipine-benazepril 5-10 mg capsule 1 cap PO DAILY Held aspirin 81 mg Tablet,Delayed Release (Dr/Ec) 81 mg PO QAM Hold Instructions: Resume on 06/08/24. You may resume aspirin 7 days after surgery Discharge Orders: Discharge Order (Routine); Ordered 06/01/24 Ordered By: Jaydon Vu Diet: Advance to usual diet Activity on Discharge: As tolerated Activity Restrictions/Additional Instructions: YOU HAD A SMALL SPINAL FLUID LEAK SEEN AT THE TIME OF SURGERY. IT IS NORMAL TO EXPERIENCE MILD HEADACHES WHEN THIS HAPPENS. IF YOU EXPERIENCE SEVERE HEADACHES PLEASE CALL OUR OFFICE TO UPDATE US. USUALLY IT WILL GO AWAY IF YOU STAY FLAT IN BED FOR A DAY. IF YOU EXPERIENCE ANY LEAKING FROM YOUR WOUND WHICH LOOKS LIKE CLEAR WATER, WE ASK THAT YOU CALL US RIGHT AWAY. [phone] After your spinal surgery we ask you to observe the following restrictions/guidelines: Activity: It is normal to feel some discomfort as you increase your activity, but that will improve with time. We ask you avoid heavy lifting or acitivities that cause pain. As a general rule, 8lbs is a safe limit for lifting right after surgery. Walk as much as you feel comfortable but not to exhaustion. You will feel extra tired the first few days after surgery. Stay well hydrated. It is OK to walk up and down stairs You may return to driving when you are off narcotics (such as vicodin, oxycodone, dilaudid, etc), and you are back to normal functional capacity. If you have any concerns please check with office before driving. Return to work is specific to each patient and each surgery, so please speak with your doctor/PA at first follow up. Please bring paperwork such as FMLA at that time if you need it filled out. Medications: You can resume aspirin 7 days after surgery For optimum pain control, it is best to start with a combination of 500 mg of Tylenol every 4 hours with 600 mg of Motrin every 8 hours, and use narcotics as needed in between for breakthrough pain. We will give you a short supply of narcotics after surgery (usually one weeks worth). If you need more please call the office but do not use more than prescribed. You will need to give our office 48 hours notice if you need narcotics refilled and we do not fill narcotics on weekends or evenings. If you are on a narcotic, it is a good idea to take a stool softener such as colace or senna to avoid constipation If you take blood thinner such as aspirin, Plavix, Coumadin, Effient, Eliquis etc for conditions such as Afib, DVT, Pulmonary embolus, coronary disease, stents etc please speak with your surgeon about specific details as to when you can resume these medications. You can resume NSAIDs on post op day 1 (eg: Motrin, Naproxen, etc). Follow up: Please call the office, , after surgery to arrange a 3 week follow up for wound check. Wound Care: You have sutures that need to be removed in 7-10 days in the office. Please call the office to arrange that appointment. You may remove your dressing on the first day after surgery. ?You may ?leave open to air. You may shower on post op day # 1 We ask that you do not let the water soak the wound. If it does get wet, just towel dry lightly. Please do not scrub your incision or place any type of chemical/ointment on the wound. No tub baths, pools or jacuzzis for one month. If you have any leaking or redness from your wound, or fevers, please call office Print Language: Vietnamese
--- NOTE | 2024-06-01 12:10 | P.OP_ITS ---
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 I have explained the nature, purpose and benefits of the operation. I have discussed the risks and benefit of the operation including possible complications or adverse events with patient/family. Alternative(s) were discussed with the patient with their relative benefits and risks as well as the consequences of not accepting the operation were included in obtaining consent. Surgeon: MILLIE SY MD, PHD Procedure Assisted By: dee dee Mota Description of Procedure This patient is suffering from a left L5 radiculopathy with mild foot drop. MRI is not impressive but seems to show a small fragment of intraforaminal disc herniation compressing the L5 nerve root. The patient was offered a decompression of the L5 nerve root. The procedure complications were explained. The patient was consented. The patient was brought to the operating room and endotracheally intubated. The patient was turned in prone position on the Kevin frame. Prep and drape was done followed by timeout. Physician pharmacy innovation assistant provided access. A mid lumbar incision was made followed by release of the paravertebral muscle on the left side to expose the L5 lamina and facet joint. An intraoperative x-ray was obtained to confirm the correct level. The microscope was brought in. I took over the procedure. The high-speed drill was used to do a L5 laminotomy. A puncture hole opening of the dura occurred with spinal fluid leakage which was tamponade with a micro peter. The procedure continued as planned. A #2 Kerrison was used to further remove the lamina towards the L5 f oramen. With a nerve hook the medial wall of the L5 pedicle was palpated as well as the beginning of the L5 foramen. The facet joint was partially drilled down after which with a #2 Kerrison a foraminotomy was done. The L5 for nerve root was identified. Perineural fat was removed and the nerve root was retracted towards the L5 pedicle to expose the underlying disc. No disc herniation was found. The good news was that the L5 nerve root was completely decompressed. The durotomy was covered with a piece of DuraGen and Vistaseal. The microscope was removed. Hemostasis was done. Incision was closed in 2 layers. A 3-0 nylon running stitch was used for wound closure. An OpSite with Tegaderm was used to cover the incision. All sponge needle counts were correct. Patient was extubated and transported in stable is to recovery room. Anesthesia: General Estimated Blood Loss (ml): Minimal Duration of Surgery: Under 60 Minutes Postoperative Plan: Discharge to home
--- NOTE | 2024-06-01 13:58 | PM.DS ---
DS: Providers Provider Date of Service: 06/01/24 Date of discharge: 06/01/24 Primary care physician: Unknown Physician DS: Diagnosis Discharge Diagnosis (1) Lumbar radiculopathy: Status: Acute DS: Summary Time Attestation Discharge Coordination Time (in mins): 8 Quality: Safe Use of Opioids Does Pt have an Active Cancer Diagnosis on the Problem List?: No Quality: Stroke Does the patient have a stroke diagnosis?: No Physical Exam Vital Signs: Vital Signs: Last Vital Signs Temp 97.5 F 06/01/24 13:15 Pulse 51 06/01/24 13:15 Resp 16 06/01/24 13:15 BP 148/51 H 06/01/24 13:15 Pulse Ox 98 06/01/24 13:15 O2 Del Method Room Air 06/01/24 13:15 BMI result Body Mass Index 27.1 Discharge Plan Discharge Patient Disposition: Home, Self-Care Referrals: Physician,Unknown J [Primary Care Provider] - 1 Week Discharge Medications: New docusate sodium [Colace] 100 mg capsule 100 mg PO BID Qty: 20 0RF oxycodone 5 mg tablet 5 mg PO Q4H PRN (Reason: pain) Qty: 30 0RF Rx Instructions: Partial Fill upon patient request. Continued atorvastatin 80 mg Tablet 80 mg PO BEDTIME gabapentin 600 mg tablet 600 mg PO TID metoprolol succinate 50 mg Tablet Extended Release 24 Hr 50 mg PO QAM amlodipine-benazepril 5-10 mg capsule 1 cap PO DAILY Held aspirin 81 mg Tablet,Delayed Release (Dr/Ec) 81 mg PO QAM Hold Instructions: Resume on 06/08/24. You may resume aspirin 7 days after surgery Discharge Orders: Discharge Order (Routine); Ordered 06/01/24 Ordered By: Jaydon Vu Diet: Advance to usual diet Activity on Discharge: As tolerated Activity Restrictions/Additional Instructions: YOU HAD A SMALL SPINAL FLUID LEAK SEEN AT THE TIME OF SURGERY. IT IS NORMAL TO EXPERIENCE MILD HEADACHES WHEN THIS HAPPENS. IF YOU EXPERIENCE SEVERE HEADACHES PLEASE CALL OUR OFFICE TO UPDATE US. USUALLY IT WILL GO AWAY IF YOU STAY FLAT IN BED FOR A DAY. IF YOU EXPERIENCE ANY LEAKING FROM YOUR WOUND WHICH LOOKS LIKE CLEAR WATER, WE ASK THAT YOU CALL US RIGHT AWAY. [phone] After your spinal surgery we ask you to observe the following restrictions/guidelines: Activity: It is normal to feel some discomfort as you increase your activity, but that will improve with time. We ask you avoid heavy lifting or acitivities that cause pain. As a general rule, 8lbs is a safe limit for lifting right after surgery. Walk as much as you feel comfortable but not to exhaustion. You will feel extra tired the first few days after surgery. Stay well hydrated. It is OK to walk up and down stairs You may return to driving when you are off narcotics (such as vicodin, oxycodone, dilaudid, etc), and you are back to normal functional capacity. If you have any concerns please check with office before driving. Return to work is specific to each patient and each surgery, so please speak with your doctor/PA at first follow up. Please bring paperwork such as FMLA at that time if you need it filled out. Medications: You can resume aspirin 7 days after surgery For optimum pain control, it is best to start with a combination of 500 mg of Tylenol every 4 hours with 600 mg of Motrin every 8 hours, and use narcotics as needed in between for breakthrough pain. We will give you a short supply of narcotics after surgery (usually one weeks worth). If you need more please call the office but do not use more than prescribed. You will need to give our office 48 hours notice if you need narcotics refilled and we do not fill narcotics on weekends or evenings. If you are on a narcotic, it is a good idea to take a stool softener such as colace or senna to avoid constipation If you take blood thinner such as aspirin, Plavix, Coumadin, Effient, Eliquis etc for conditions such as Afib, DVT, Pulmonary embolus, coronary disease, stents etc please speak with your surgeon about specific details as to when you can resume these medications. You can resume NSAIDs on post op day 1 (eg: Motrin, Naproxen, etc). Follow up: Please call the office, , after surgery to arrange a 3 week follow up for wound check. Wound Care: You have sutures that need to be removed in 7-10 days in the office. Please call the office to arrange that appointment. You may remove your dressing on the first day after surgery. ?You may ?leave open to air. You may shower on post op day # 1 We ask that you do not let the water soak the wound. If it does get wet, just towel dry lightly. Please do not scrub your incision or place any type of chemical/ointment on the wound. No tub baths, pools or jacuzzis for one month. If you have any leaking or redness from your wound, or fevers, please call office Print Language: Tamazight
== END 2024-06-01 14:07 | disposition home or self-care (01) ==
PROVIDERS: Nurse Practitioner; Visit Provider Neurological Surgery
PROC: (CPT 63047; principal; 2024-06-01 10:30)
DX: M48.061 Spinal stenosis, lumbar region without neurogenic claudication (principal); M51.17 Intervertebral disc disorders with radiculopathy, lumbosacral region; M21.372 Foot drop, left foot; R26.89 Other abnormalities of gait and mobility; I25.10 Atherosclerotic heart disease of native coronary artery without angina pectoris; Z95.1 Presence of aortocoronary bypass graft; I44.7 Left bundle-branch block, unspecified; I10 Essential (primary) hypertension; E78.00 Pure hypercholesterolemia, unspecified; R73.03 Prediabetes; Z79.82 Long term (current) use of aspirin; Z79.899 Other long term (current) drug therapy; Z98.890 Other specified postprocedural states
CPT/HCPCS: 63047; 36415; 80048; 85027; 93005; C1763; C9250; J0131; J0690; J1100; J1885; J2003; J2405; J2704; J3010

== ENCOUNTER → 2024-06-01 07:39 | Outpatient (BNV) | payer MEDICARE, SELFPAY | PROVIDERS: Visit Provider Neurological Surgery | DX: M54.16 Radiculopathy, lumbar region (principal) | CPT/HCPCS: 63047; 99499 ==

== ENCOUNTER 2024-06-12 08:45 | Outpatient (AMB) | payer MEDICARE, SELFPAY ==
--- NOTE | 2024-06-12 08:53 | HO.SPINEOV ---
Intake Visit Reasons: suture removal Intake Note: Mr. Julien is here today to have his suture's removed. Occupational Therapist Assistants Required: No Allergies No Known Allergies Allergy (Verified 04/24/24 09:38) Assessment & Plan Assessment & Plan (1) Status post lumbar spine surgery for decompression of spinal cord: Code(s): Z98.890 - Other specified postprocedural states Category: Medical Plan Operation: L5 Laminotomy, Partial facetectomy and foraminotomy Ethan is a pleasant 79 year old male who comes in today for suture removal after he underwent L5 laminotomy with incidental durotomy about 10 days ago. He is overall doing well, and reports no specific concerns or issues since the surgery. He does feel his pain has improved, but still reports a nagging / dull pain in his right posterior buttocks which has been present since before surgery. He has been completing the bulk of his ADLs without issue. No new neurological deficits. He ambulates well and rises from a seated position without difficulty. His posterior incision site appears clean, dry and well healing. I removed 1 running suture during this visit. No bleeding or issues with removal. Patient tolerated procedure well. I would like Ethan to follow up with us routinely for his 1st postoperative visit in a few weeks to evaluate healing progress. Salomón Stockton MD,PhD [facility] Coding Level of Care Code Global (85849) Diagnoses Status post lumbar spine surgery for decompression of spinal cord Z98.890
--- OUTSIDE RECORDS SUMMARY | 2024-06-12 12:54 | XMS_ITS ---
Author Organization [facility] Address [address] [facility] [place] [address] Care Team Providers Care Script Writer Name Role Phone Gavin Mendoza Unavailable [phone] ALLERGIES, ADVERSE REACTIONS, ALERTS Substance Code Code [...] Start Date End Date Stat us Hyperlipidemia 71319897 [facility] 09/22/2022 Activ e Chest pain, unspecified 425730859 [facility] 09/22/2022 Resolved Hypertension 46912354 [facility] 09/22/2022 Active Cardiac arrest, cause unspecified 833857748 [facility] 09/23/19 23 Active Left bundle-branch block, unspecified 08004065 [facility] Active Paresthesia of skin 243496357 [facility] 05/13/2024 Active ENCOUNTERS Encounter Diagnosis Code Code System Date Stat us Paresthesia of skin 480013736 [facility] 05/13/2024 Activ e IMMUNIZATIONS * None VITAL SIGNS Code Code System Vitals Name Date Value and Un its 8462-4 [facility] Blood Pressure-Diastolic 05/13/2024 85 mmHg 8480-6 [facility] Blood Pressure-Systolic 05/13/2024 1 67 mmHg 8867-4 [facility] Heart Rate 05/13/2024 72 /min 9279-1 [facility] Respiratory Rate 05/13/2024 18 /min 8310-5 [facility] Body Temperature 05/13/2024 98.0 F 56801-1 [facility] Oxygen Saturation 05/13/2024 95 % SOCIAL HISTORY [...] Gifty Stein - 05/13/2024 ED TransferReferred To: [facility] ED[address] [place], [place] [address]Y: F: Schedule: CompletedMode of transport is EMSStability Status is stableOrdered 05/13/2024 03:31 PM by True Gaines edited 05/25/2024 11:17 AM by Gifty Stein MA HARGE SUMMARY NOTES * None HISTORY AND PHYSICAL NOTES * Patient: AISLINN MERIDA, Sex: M (ID# [id number]) Date of : 1945 (79 years) Visit on 05/13/2024 (Log# [id number]) Historian: Self Triage Notes: This morning he had pain in his right arm all the way to his finger tips, also his arm felt like itfell asleep, also having 0high blood pressure today. History of Present Illness: 79-year-old male who reports onset of lwzk-qco-qkstwuv in the right arm. Episode lasted 30 [...] emergency department. Referrals: ED Transfer Referred To: [facility] Adult ED [address] [place] [address] T: F: Schedule: To be scheduled STAT. [...]
--- OUTSIDE RECORDS SUMMARY | 2024-06-12 12:55 | XMS_ITS | Clinical Summary ---
Author Organization [facility] Address [address] [place] [address] Care Team Providers Care Craft Coordinator Name Role Phone Unavailable Primary Care Provider Unavailabl e Social History Tobacco Use Types Packs/Day Years Used Date Smoking Tobacco: Never Assessed Sex and Gender Information Value Date Recorded Sex Assigned at Not on file Gender Identity Not on file Sexual Orientation Not on file Plan of Treatment Health Maintenance Due Date Last Done Comments Zoster Vaccines (1 of 2) 1997 RSV Immunization Patients 60+ Years Old (1 - 1-dose 75+ series) 2022 DTaP,Tdap,and Td Vaccines (3 - Td or Tdap) 12/26/2023 12/25/2013, 03/09/2004 COVID-19 Vaccine ( - season) 2024 10/15/2021, 05/04/2021, 07/15/2020, Additional history exists Cholesterol Screening (Lipid Panel) 03/10/2024 Depression Screening 03/10/2024 Falls Risk Assessment 03/10/2024 Hepatitis C Screening 03/10/2024 Social Influencers of Health Screening 03/10/2024 Hypertension/CHF/CAD Annual BMP Blood Test 06/01/2024 Pneumococcal Vaccine: 65+ Years Completed 02/21/2021, 02/04/2018, 11/22/2015, Additional history exists Influenza Vaccine Completed 03/16/2024, , 02/18/2022, Additional history exists HIB Vaccines Aged Out No longer eligi ble based on patient's age to complete this topic HPV Vaccines Aged Out No longer eligi ble based on patient's age to complete this topic Hepatitis A Vaccines Aged Out No long er eligible based on patient's age to complete this topic Hepatitis B Vaccines Aged Out No long er eligible based on patient's age to complete this topic IPV Vaccines Aged Out No longer eligi ble based on patient's age to complete this topic MMR Vaccines Aged Out No longer eligi ble based on patient's age to complete this topic Meningococcal ACWY Vaccine Aged Out N o longer eligible based on patient's age to complete this topic RSV Immunization Patients Under 20 months Aged Out No longer eligible based on patient's age to complete this topic Varicella Vaccines Aged Out No longer eligible based on patient's age to complete this topic Advance Directives Documents on File Type Date Recorded 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
--- OUTSIDE RECORDS SUMMARY | 2024-06-12 12:55 | XMS_ITS | Continuity of Care Document ---
Author Name [facility] Organization [facility] Care Team Providers Care Air Transport Professionals Name Role Phone [facility] Unavailable Unavailable Problems Combined list of problems from Department of Defense and Veterans Affairs facilities. It does not include entries that were removed or entered in error. Problem Status Onset Date Problem Type Date of Resolution Comments Source Screening for Malignant Neoplasms of colon Active 05/17/19 10 Condition Dec 06, 2009 Entered By: SONIA PEÑA Comment: Colonoscopy: Normal [place] 1987: Fractured Nose & Mandible Repair Active Condition Dec 06, 2009 Entered By: SONIA PEÑA Comment: 1986:Large Metal [place] Crushed Nose: Concussion & LOC [place] Blurred vision (ICD-9-CM 368.8) Active Condition [facility] Body mass index 25-29 - overweight Active Condition [place] [facility] [place] [facility] CAD - Coronary Artery Disease (SCT 28178148) Active Condition Mar 20, 2023 Entered By: FRANCI ROSEN Comment: 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) [place] Decreased vitamin D Active Condition Jan 29, 2020 Entered By: YANETH PARTIDA Comment: October 2019 [place] [facility] [place] [facility] Erectile dysfunction Active Condition [place] Exposure to Agent Magoffin (SNOMED CT 687027675) Active Condition [place] Exposure to potentially hazardous substance (SCT 698475192161669) Active Condition Mar 21 4 Entered By: STEVAN ALLEN Comment: Entered automatically through PATTI Problem List documentation program [facility] [facility] Family history of coronary artery disease (SNOMED CT 981888886) Active Condition Dec 06, 2009 Entered By: SONIA PEÑA Comment: CAD [place] History of polyp of colon Active Condition [facility] Hyperlipidemia Active Condition [facility] [facility] PCP: Sheldon MANZO: [place] Active Condition [place] Primary hypertension (SNOMED CT 02536899) Active Condition [place] Superficial basal cell carcinoma (SNOMED CT 599553103) Active Condition Dec 06, 2009 Entered By: SONIA PEÑA Comment: 2008: 1 lesion on chest [place] Tinnitus * (ICD-9-CM 388.30) Active Condition [facility] [place] Vitamin D Deficiency (SCT 06762055) Active Condition [place] Diagnosis: ICD-10-CM I25.10 Athscl heart disease of [place] coronary artery w/o ang pctrs Active Diagnosis [place] Medications Combined list of outpatient medications from Department of Defense and Veterans Affairs facilities.Medications provided include 1) outpatient medications from the last 15 months, and 2) patient-reported medications. Medication Details Route Status Patient Instructions Prescription Expires Prescription Number Last Dispense Date Ordering Provider Order Date Order Qty Source ASPIRIN 81MG TAB,EC TAKE ONE TABLET BY MOUTH ONCE DAILY ORAL ACTIVE FRANCI VARGAS 2022 [facility] [place] [place] ATORVASTATI N CA 80MG TAB TAKE ONE TABLET BY MOUTH ONCE DAILY FOR HIGH CHOLESTE ROL ORAL ACTIVE 03/17/2025 [id number] FRANCI VARGAS 2023 90 [facility] [place] ATORVASTATI N CA 80MG TAB TAKE ONE TABLET BY MOUTH ONCE DAILY FOR HIGH CHOLESTE ROL ORAL DISCONT INUED 02/11/2024 [id number] FRANCI VARGAS 2022 90 [facility] [place] CHOLECALCIF MARCE 25MCG (1,000UNIT) TAB TAKE ONE TABLET BY MOUTH ONCE DAILY ORAL ACTIVE FRANCI VARGAS 2020 [facility] [place] DOCUSATE NA 100MG CAP TAKE ONE CAPSULE BY MOUTH TWICE DAILY TO SOFTEN STOOL ORAL ACTIVE 07/01/2024 [id number] Murtaza PAIZ MTB 2024 20 [facility] [place] LIDOCAINE 5% PATCH APPLY 1 PATCH TOPICALL Y ONCE DAILY FOR NERVE PAIN (LEAVE PATCH ON FOR 12 HOURS, THEN REMOVE PATCH) TOPICA L ACTIVE 03/17/2025 [id number] 4 NADFRANCI MASON 2023 30 [place] METOPROLOL SUCCINATE 50MG TAB,SA TAKE ONE TABLET BY MOUTH ONCE DAILY FOR BLOOD PRESSURE /HEART ORAL ACTIVE 03/17/2025 [id number] FRANCI VARGAS 2023 90 [place] METOPROLOL SUCCINATE 50MG TAB,SA TAKE ONE TABLET BY MOUTH ONCE DAILY FOR BLOOD PRESSURE /HEART ORAL DISCONT INUED 02/07/2025 [id number] RA ALVAREZ MIR 2023 90 [place] [facility] METOPROLOL SUCCINATE 50MG TAB,SA TAKE ONE TABLET BY MOUTH ONCE DAILY FOR BLOOD PRESSURE /HEART ORAL DISCONT INUED 02/11/2024 [id number] FRANCI VARGAS 2022 90 [place] OXYCODONE HCL 5MG TAB TAKE ONE TABLET BY MOUTH EVERY 4 HOURS NEEDED FOR PAIN ORAL ACTIVE 07/01/2024 [id number] [facility] 2024 30 [place] SILDENAFIL CITRATE 100MG TAB TAKE ONE TABLET BY MOUTH ONCE DAILY NEEDED TAKE 1 HOUR PRIOR TO SEXUAL ACTIVITY ORAL ACTIVE 03/17/2025 [id number] 5 FRANCI VARGAS 2023 18 [place] SILDENAFIL CITRATE 100MG TAB TAKE ONE TABLET BY MOUTH ONCE DAILY NEEDED TAKE 1 HOUR PRIOR TO SEXUAL ACTIVITY ORAL DISCONT INUED 03/20/2024 [id number] FRANCI VARGAS 2022 6 [place] SILDENAFIL CITRATE 100MG TAB TAKE ONE TABLET BY MOUTH ONCE DAILY NEEDED TAKE 1 HOUR PRIOR TO SEXUAL ACTIVITY ORAL DISCONT INUED 03/17/2023 [id number] FRANCI VARGAS 2021 6 [place] Immunizations Combined list of available immunizations from the Department of Defense and Veterans Affairs facilities. Immunization Series Date Given Administered By Site Reaction Lot Number CVX Code Drug Injection Machine Operator Status Comments Source INFLUENZA, HIGH-DOSE, TRIVALENT, PF 2023 MARLA CUEVAS LEFT DELTO ID [id number] 135 [facility] COVID-19 (MODERNA), MRNA, LNP-S, PF, 50 MCG/0.5 ML (AGES 12+ YEARS) 1 2022 MARLA CUEVAS LEFT DELTO ID [id number] 312 [facility] INFLUENZA, UNSPECIFIED FORMULATION 2022 88 complet [facility] ZOSTER RECOMBINANT 2 2022 EVONNE PARSONS LEFT DELTO ID [id number] 187 complet ed Lots [id number] expiratio n 04/09/23 [facility] [place] ZOSTER RECOMBINANT 1 2021 187 complet ed [facility] INFLUENZA, UNSPECIFIED FORMULATION 2021 88 complet ed [facility] COVID-19 (PFIZER), MRNA, LNP-S, BIVALENT, PF, 30 MCG/0.3 ML DOSE 1 2021 300 complet ed Lot#: [id number] Mfr: [employer] [facility] COVID-19 (PFIZER), MRNA, LNP-S, PF, 30 MCG/0.3 ML DOSE, RAHUL-SUCROSE (AGES 12+ YEARS) 4 2021 217 complet ed [facility] COVID-19 (PFIZER), MRNA, LNP-S, PF, 30 MCG/0.3 ML DOSE, RAHUL-SUCROSE (AGES 12+ YEARS) 3 2020 217 complet ed [facility] INFLUENZA VACCINE, QUADRIVALENT, ADJUVANTED 2020 205 complet ed [facility] PNEUMOCOCCAL POLYSACCHARID E PPV23 2020 33 complet ed [facility] [place] [place] COVID-19 (PFIZER), MRNA, LNP-S, PF, 30 MCG/0.3 ML DOSE 2 2020 208 complet ed [facility] COVID-19 (PFIZER), MRNA, LNP-S, PF, 30 MCG/0.3 ML DOSE 1 2020 208 complet ed [facility] INFLUENZA, SEASONAL, INJECTABLE 2018 141 complet ed [facility] INFLUENZA, SEASONAL, INJECTABLE 2017 141 complet ed [facility] PNEUMOCOCCAL CONJUGATE PCV 13 2017 RIGHT DELTO ID 133 complet ed Lot#: [id number] Mfr: MARIMAR RSShanon Expiratio n Date: 10/15/19 [facility] [...] [place] (HISTORICAL) 2013 121 complet ed at [facility] FLU,3 YRS (HISTORICAL) 2013 88 complet ed at [facility] pharmacy [facility] PNEUMOCOCCAL POLYSACCHARID E PPV23 2013 RIGHT DELTO ID 33 complet ed Lot#: [id number] Mfr: [employer] Expiratio n [...] complet ed [facility] Vital Signs Combined list of inpatient and outpatient Vital Signs from Department of Defense and Veterans Affairs, ranging from 12 months to all on record, depending upon the facility. Vital Sign Value Date Comments Source SYSTOLIC BLOOD PRESSURE 175 03/16/2024 09:34:16 [place] DIASTOLIC BLOOD PRESSURE 69 03/16/2024 09:34:16 [place] PULSE OXIMETRY 96 03/16/2024 09:34:16 [place] [...] Disposition Source [facility] Outpatient Encounter [id number] 12/10 [facility] Outpatient Encounter [id number] 12/18 [facility] Outpatient Encounter [id number] 01/30 [facility] Outpatient Encounter [id number] 02/09 [facility] OFFICE O/P EST MOD 30-39 MIN [id number] Diagnos is: ICD-10- CM I25.10 Athscl heart disease of [place] coronar y artery w/o ang pctrs<b r/> RUSSEL VARGAS 03/16 [facility] [facility] ADMN SARSCOV2 VACC 1 DOSE [id number] CHEN BOSSRUSSEL 03/16 [facility] Out[facility] Encounter [id number] 06/01 [facility] En[facility] [id number] 02/06 [facility] En[facility] [id number] 1.03/08 [facility] [place] ADMIN [id number] 1. CHEN BOSSRUSSEL Hauser 03/16 [facility] [place] Outpatient Encounter [id number]. [id number] Diagnos is: ICD-10- CM I25.10 Athscl heart disease of [place] coronar y artery w/o ang pctrs<b r/> CHEN BOSSRUSSEL 03/16 [facility] [place] Social History Combined list of available smoking, tobacco, and other social history from Department of Defense and Veterans Affairs facilities. Social History Type Response Date Comment Sourc e Tobacco smoking status DEIS VA-TOBACCO NEVER USED 03/16/2024 [facility] [...] of tobacco use [facility]TOBACCO NEVER US[facility] History of tobacco use LIFETIME NON-TOBACCO USER 09/24/2017 [place] History of tobacco use LIFETIME NON-TOBACCO USER 08/07/2016 [place] History of tobacco use LIFETIME NON-TOBACCO USER 06/05/2015 [place] History of tobacco use LIFETIME NON-TOBACCO USER 12/06/2009 [place]
--- OUTSIDE RECORDS SUMMARY | 2024-06-12 12:55 | XMS_ITS | Continuity of Care Document ---
Author Organization [facility] Address [address] [place] [address]- Care Team Providers Care Eco Industrial Development Consultant Name Role Phone Ismael Dunlap MD Primary Care Physician Encounter [facility] Date(s): 05/03/24 - 06/02/24 [facility] [address] [place] [address]- Encounter Type: Triage Allergies, Adverse Reactions, Alerts Substance Criticality Severity [...] influenza virus vaccine, inactivated 03/13/08 Give n ZIXB-VcN-1mIPC 12y+ bivalent booster vax 02/18/22 Recorded SARS-CoV-2 mRNA (iuipwtk-eykp-yhmlq) vax 10/15/21 Recorded SARS-CoV-2 (COVID-19) mRNA BNT-162b2 [...] toxoids (Td) 03/09/04 Given 1Result Comment: [02/22/2018] [facility] [id number] 2Result Comment: [02/04/2018] [facility] [id number] Medications amlodipine-benazepril 5 mg-10 mg oral capsule 1 capsule, By Mouth, Daily, # 30 capsule, 0 Refills, Maintenance, 05/23/24 1:17:00 PM EST, Capsule, [id number], Partial fill upon patient request if the [...] Maintenance, 10/07/22 12:44:00 PM EDT, EC Tablet, [facility] 3, Partial fill upon patient request [...] Team Personnel Name: Payal Mancera RN Position: [facility] RN Member Role: Primary Care Nurse Name: Gaby Villagomez RN Position: S RN Member Role: Primary Care Nurse Name: Brittnee Young RN Position: S RN Member Role: Primary Care Nurse Name: Alessandra Knapp RN Position: S RN Member Role: Primary Care Nurse Name: Ismael Dunlap MD Position: [facility] Physician - Primary Care Member Role: PCP Address: [address] [place] [address]- [place] [employer]: Name: Asha [place] RN Position: S RN Member Role: Primary Care Nurse Name: Amy Ward RN Position: [facility] ED RN W/OE and Tasks Member Role: Primary Care Nurse Name: Perla Lawton RN Position: S RN Member Role: Primary Care Nurse Name: Elena Don RN Position: S RN Member Role: Primary Care Nurse Name: Mary Melton RN Position: S RN Member Role: Primary Care Nurse Name: Katie Orozco RN Position: [facility] RN Member Role: Primary Care Nurse Name: Narcisa Isaac RN Position: [facility] RN Member Role: Primary Care Nurse Care Team Related Persons Name: STEVAN MERIDA Insurance Providers Guarantor name: AISLINN MERIDA Health Plan Information #: 1 Payer: MEDICARE PART B OUTPT Member Number: NA Policy Number: NA Group Number: NA Health Plan Information #: 2 Payer: MEDEX Member Number: NA Policy Number: NA Group Number: NA
== END 2024-06-12 09:21 | disposition home or self-care (01) ==
PROVIDERS: Visit Provider Physician Assistant
DX: Z98.890 Other specified postprocedural states (principal)
CPT/HCPCS: 99024

== ENCOUNTER → 2024-06-12 08:45 | Outpatient (BNVA) | payer MEDICARE, SELFPAY | PROVIDERS: Visit Provider Physician Assistant | DX: Z48.02 Encounter for removal of sutures (principal); Z98.890 Other specified postprocedural states | CPT/HCPCS: 99212 ==

== ENCOUNTER 2024-06-26 08:42 | Outpatient (AMB) | payer MEDICARE, SELFPAY ==
--- NOTE | 2024-06-26 08:47 | HO.SPINEOV ---
Intake Visit Reasons: 1st post op Intake Note: Mr. Julien is here today for 1st post op. Forester Silviculture Required: No Allergies No Known Allergies Allergy (Verified 06/26/24 08:59) Assessment & Plan Assessment & Plan (1) Lumbar radiculopathy: Code(s): M54.16 - Radiculopathy, lumbar region Category: Medical Plan Mr Julien is 4 weeks out from his left L5 foraminotomy. He is doing very well, his leg pain is gone. His wound is healed up well, no signs of CSF leak. We discussed activity guidelines, restrictions and expectations after lumbar foraminotomy. He is otherwise doing well so we can see him back on an as-needed basis if his pain returns. Jaydon Stockton MD, PhD [facility] Coding Level of Care Code Global (85589) Diagnoses Lumbar radiculopathy M54.16
== END 2024-06-26 09:32 | disposition home or self-care (01) ==
PROVIDERS: Visit Provider Physician Assistant
DX: M54.16 Radiculopathy, lumbar region (principal)
CPT/HCPCS: 99024

== ENCOUNTER → 2024-06-26 08:42 | Outpatient (BNVA) | payer MEDICARE, SELFPAY | PROVIDERS: Visit Provider Physician Assistant | DX: M54.16 Radiculopathy, lumbar region (principal) | CPT/HCPCS: 99212 ==

== ENCOUNTER 2024-08-14 13:35 | Outpatient (AMB) | payer MEDICARE, SELFPAY ==
--- NOTE | 2024-08-14 13:47 | HO.SPINEOV ---
Intake Visit Reasons: recurring pain after surgery Intake Note: Mr. Julien is here today because he is having recurring pain after surgery. Javascript Application Developer Required: No Allergies No Known Allergies Allergy (Verified 08/14/24 13:48) Assessment & Plan Assessment & Plan (1) Lumbar radiculopathy: Code(s): M54.16 - Radiculopathy, lumbar region Category: Medical Plan Mr Julien is about 2-1/2 months out from his very successful left L5 foraminotomy. He did quite well after that surgery and had almost complete relief of his pain. For whatever reason about 2 weeks ago, the pain started up again, even more intense than it was before surgery. He has been unable to sleep, he has been trying Motrin and gabapentin throughout the day. He is okay for few hours in the morning but by 11 her 12:00 in the morning it just become so unbearable he can not stand any longer. It also bothers him when he is lying down so he is constantly changing positions. He feels as though his footdrop maybe getting slightly worse as well. On my exam, he is very uncomfortable, he looks extremely tired like he has not slept in days. His weakness of the dorsiflexion is 4-/5, which is slightly worse than previously, but obviously this could be due to pain. There is some loss of sensation around the anterior tibial to the outer malleolus. This is new for him. Reflexes are intact. The rest of his strength is normal. He has positive straight leg raise at about 30 degrees, negative AIDEN testing. I suspect we may be dealing with a herniated disc in the L5 foramen similar to what he had before. I am going to order an urgent MRI as he does have loss of sensation and worsening weakness in his left foot. Jaydon Stockton MD, PhD [facility] Orders: Orders MR lumbar spine wo/w con Today M54.16 - Radiculopathy, lumbar region Coding Level of Care Code Global (34900) Diagnoses Lumbar radiculopathy M54.16
--- OUTSIDE RECORDS SUMMARY | 2024-08-14 15:21 | XMS_ITS | Encounter Summary ---
Author Name [facility] [facility] [place] [facility] [place] Address [address] [place] [address] Care Team Providers Care Document Restorer Name Role Phone FRANCI ROSSI Primary Care [...] Patient's Relationship to Policy Schmitt ELSI BCBS [facility] MEDICARE SUPPLEMEN ROBERT PSUED O MEDEX BRONZ E Feb 14, 2014 [id number] [phone] MICHAEL MERIDA PATIENT [place] MED[place] SUPPLEMEN ROBERT MEDEX BRONZ E Mar 17, 2014 [id number] MICHAEL MERIDA RADHA PATIENT MEDICARE (WNR) MEDICARE (M) PART B Feb 14, 2014 PART B [id number] [phone] MICHAEL MERIDA PATIENT MEDICARE (WNR) MEDICARE (M) PART B Feb 14, 2014 PART B [id number] [phone] FUADMICHAEL RADHA PATIENT MEDICARE (WNR) MEDICARE (M) PART B Feb 14, 2014 PART B [id number] MICHAEL MERIDA PATIENT MEDICARE (WNR) MEDICARE (M) PART A Dec 16, 2011 PART A [id number] MICHAEL MERIDA PATIENT MEDICARE (WNR) MEDICARE (M) PART A Dec 16, 2011 PART A [id number] MICHAEL MERIDA PATIENT MEDICARE (WNR) MEDICARE (M) PART A Dec 16, 2011 PART A [id number] MICHAEL MERIDA PATIENT Selected Encounter This section includes the information on record at [place] for the Encounter. Date/Time Encounter Type Encounter Description Reason Pro vider Source Feb 07, 2024 10:16 AM Outpatient Encounter ADMIN PAT ACTIVTIES (MASNONCT) IHE Encounter Template Text not used by [place] Plan of Treatment: Future Appointments (+ 6 [...] 20 appointments. The data comes from all [place] treatment facilities. Appointment Date/Time Appointment Type Appointme [...] The data comes from all [place] treatment [facility]. Test Date/Time Test Type Test Details Facility [...] stry Order VITAMIN D (25-[place]) BLOOD (SST-SERUM) [facility] Mar 08, 2024 12:00 AM Laboratory - Chemi stry Order MICROALBUMIN CREATININE RATIO PANEL URINE (RANDOM) [facility] Social History: Smoking Status (Most current) and [...] 16, 2023 09:21 AM VA-TOBACCO NEVER USED [place] [facility] [place] [facility] Tobacco Use History This section includes a history of the smoking, or tobacco-related health factors, that were collected on or before the date of the Encounter. The data comes from the [place] facility where the Encounter took place. Date/Time Smoking Status/Tobacco Use Comment F acility Mar 05, 2022 09:57 AM VA-TOBACCO NEVER USED [place] [facility] [place] [facility] Oct 18, 2019 09:55 AM VA-TOBACCO NEVER USED [facility] [place] [facility] Encounter Notes: All associated encounter notes This section contains the clinical notes associated to the Encounter. Date/Time Encounter Note(s) Provider Source Feb 07, 2024 10:16 AM PHARMACY NOTE: LOCAL TITLE: V1 PHARMACY CUSTOMER CARE MEDICATION RENEWAL STANDARD TITLE: PHARMACY NOTE DATE OF NOTE: FEB 07, 2024@10:16 ENTRY DATE: FEB 07, 2024@10:16:50 AUTHOR: SHMUEL PATEL EXP COSIGNER: URGENCY: STATUS: COMPLETED Date: Jan Division: [facility] referred by Pharmacy Call Center for medication renewal: Non-controlled/maintena nce medication Medications requested: [id number] METOPROLOL SUCCINATE 50MG SA TAB Defer to primary care provider To be mailed . Please review and renew if appropriate. *This note was generated by [facility] Pharmacy Customer Care. If you have any questions or need assistance, do not contact this author. Please refer all questions to your local, on-site pharmacy departments. /kashif/ SHMUEL PATEL CPhT Paediatric Physiotherapist, [place]/Pharmacy Customer Care Signed: 02/07/2024 10:17 Receipt Acknowledged By: 02/07/2024 11:26 /es/ OMKAR MIR NP NURSE PRACTITIONER for FRANCI ROSSI 02/10/2024 08:49 /es/ SARAHI CHAPMAN,RN REGISTERED NURSE [facility] [place] [facility]
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
--- OUTSIDE RECORDS SUMMARY | 2024-08-14 15:22 | XMS_ITS | Clinical Summary ---
Author Organization [facility] Address [address] [place] [address] Care Team Providers Care Transportation Department Supervisor Name Role Phone Unavailable Primary Care Provider Unavailabl e Social History Tobacco Use Types Packs/Day Years Used Date Smoking Tobacco: Never Assessed Sex and Gender Information Value Date Recorded Sex Assigned at Not on file Legal Sex Male 11:34 AM EST Gender Identity Not on file Sexual Orientation [...] Annual BMP Blood Test 06/01/2024 Pneumococcal Vaccine: 50+ Years Completed 02/21/2021, 02/04/2018, 11/22/2015, Additional history [...] patient's age to complete this topic Meningococcal B Vacine Aged Out No lo nger eligible based on patient's age to complete this topic RSV Immunization Patients Under 20 months Aged Out No longer eligible based on patient's age to complete this topic Varicella Vaccines Aged Out No longer eligible based on patient's age to complete this topic Advance Directives Documents on File Type Date Recorded 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
== END 2024-08-14 14:26 | disposition home or self-care (01) ==
LOC: HO.HNS 13:36
PROVIDERS: Visit Provider Physician Assistant
DX: M54.16 Radiculopathy, lumbar region (principal)
CPT/HCPCS: 99024

== ENCOUNTER → 2024-08-14 13:35 | Outpatient (BNVA) | payer MEDICARE, SELFPAY | PROVIDERS: Visit Provider Physician Assistant | DX: M54.16 Radiculopathy, lumbar region (principal) | CPT/HCPCS: 99212 ==

== ENCOUNTER → 2024-08-20 15:48 | Outpatient (BNV) | payer MEDICARE, SELFPAY | PROVIDERS: Visit Provider Radiology Diagnostic Radiology | DX: M51.369 Other intervertebral disc degeneration, lumbar region without mention of lumbar back pain or lower extremity pain (principal) | CPT/HCPCS: 72158 ==

== ENCOUNTER 2024-08-20 16:21 | Outpatient (REF) | payer MEDICARE, SELFPAY ==
--- NOTE | ~2024-08-20 | MR_ITS ---
CLINICAL HISTORY: M54.16 - Radiculopathy, lumbar region MR of the lumbar spine with and without contrast Comparison: CR/SR - XR LUMBAR SPINE 4V MIN - 04/19/24 10:19 EST Findings: 2 mm retrolisthesis of L1 on L2, degenerative. There is a mild amount of edema and enhancement L4/L5, predominantly on the left. There is a mild amount of edema and enhancement at L5/S1, most pronounced on the right. Large amount of Modic type 2 change at L4/L5. Trace amount of Modic type 2 change at L3/L4 posteriorly. No cord expansion or abnormal signal intensity. The conus medullaris terminates at L1, which is normal. The cauda equina is unremarkable. There is edema and enhancement with postsurgical change in the midline soft tissues at L4/L5 and L5/S1. No fluid collection. L1/L2: 6 mm broad-based disc bulge. Moderate facet joint and ligamentum flavum hypertrophy. [id number] central canal stenosis. Moderate to severe bilateral lateral recess stenosis. Severe right and moderate left foraminal stenosis. L2/L3: 5 mm broad-based disc bulge. Severe facet joint and ligamentum flavum hypertrophy. Moderate central canal stenosis. Moderate bilateral lateral recess stenosis. No foraminal stenosis. L3/L4: 3 mm broad-based disc bulge. Severe facet joint and ligamentum flavum hypertrophy. Mild central canal stenosis. Mild right and moderate to severe left lateral recess stenosis. No foraminal stenosis. L4/L5: Status post left hemilaminectomy with discectomy. There is a mild amount of enhancement at the left aspect indicating granulation tissue. Disc desiccation with a 3 mm broad-based disc bulge. Severe facet joint hypertrophy. Efcc-ax-ibjdrlby central canal stenosis. Moderate to severe bilateral lateral recess stenosis. Mild right and moderate left foraminal stenosis. L5/S1: 5 mm broad-based disc bulge. Severe facet joint and ligamentum flavum hypertrophy. Mild central canal stenosis. Moderate bilateral lateral recess stenosis. No right and moderate to severe left foraminal stenosis. Impression: Mild amount of edema and enhancement at L4/L5 and L5/S1 is favored to be Modic type 1 change. Infection is considered less likely. Status post left hemilaminectomy at L4/L5. Mild amount of enhancement at the left aspect likely indicates granulation tissue. Multilevel degenerative change, detailed above. This document has been electronically signed by: Bev Christie MD on 08/20/2024 19:14:44
--- OUTSIDE RECORDS SUMMARY | 2024-08-20 16:25 | XMS_ITS | Clinical Summary ---
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
[2024-08-20] MEDS: gadobutroL 10 ML VIAL IVPUSH (17:07)
== END 2024-08-20 16:22 | disposition home or self-care (01) ==
LOC: HO.MRI 16:21
PROVIDERS: Visit Provider Physician Assistant
DX: M54.16 Radiculopathy, lumbar region (principal)
CPT/HCPCS: 72158; A9585